=== PATIENT | male | born 1960 | race Caucasian/White ===

== ENCOUNTER 2024-02-17 13:37 | Inpatient (IN) | payer OTHER ==
[2024-02-17] MEDS: IPRATROPIUM 0.5 MG/2.5 ML NEBU INHALATION STA (13:53)
[2024-02-17] MEDS: ALBUTEROL NEBULIZED 2.5 MG/3 ML INHALATION STA (13:53)
[2024-02-17] MEDS: methylPREDNISolone SOD SUCCI 125 MG/2 ML VIAL IV STA (13:56)
[2024-02-17] MEDS: LORazepam 2 MG/ML INJ IV STA (13:59)
--- NOTE | 2024-02-17 14:04 | XR ---
EXAMINATION TYPE: XR chest 1V portable DATE OF EXAM: 02/17/2024 COMPARISON: None INDICATION: Difficulty breathing TECHNIQUE: Single frontal view of the chest is obtained. FINDINGS: The heart size is enlarged. The pulmonary vasculature is prominent. Diffuse increased central lung markings are present bilaterally. IMPRESSION: 1. Clinical correlation for congestive heart failure is recommended. [facility] [place], , 02/17/2024 2:01 PM
[2024-02-17 14:06] LABS: VBG PH 7.26 (7.31-7.41)
[2024-02-17 14:17] LABS: ALT 30 U/L (4-49); African American GFR (CKD) >90 (>60 ml/min/1.73 sqM); Albumin 3.5 g/dL (3.5-5.0); Anion Gap 12 mmol/L; Blood Urea Nitrogen 13 mg/dL (9-20); Calcium 8.9 mg/dL (8.4-10.2); Carbon Dioxide 20 mmol/L (22-30); Chloride 108 mmol/L (98-107); Glucose 182 mg/dL (74-99); Non-African American GFR(CKD) >90 (>60 ml/min/1.73 sqM); Sodium 140 mmol/L (137-145); Total Bilirubin 1.3 mg/dL (0.2-1.3); Total Protein 6.6 g/dL (6.3-8.2)
[2024-02-17 14:23] LABS: Basophils % (A) 0 %; Eosinophils # (A) 0.1 k/uL (0-0.7); Eosinophils % (A) 0 %; HCT 35.2 % (39.0-53.0); HGB 11.2 gm/dL (13.0-17.5); Hypochromasia Moderate; Lymphocytes % (A) 8 %; MCH 28.8 pg (25.0-35.0); MCHC 31.7 g/dL (31.0-37.0); MCV 90.8 fL (80.0-100.0); Mean Platelet Volume 8.9; Monocytes # (A) 0.4 k/uL (0-1.0); Monocytes % (A) 4 %; Neutrophils # (A) 10.6 k/uL (1.3-7.7); Neutrophils % (A) 87 %; Platelet Count 414 k/uL (150-450); Poikilocytosis Slight; RBC 3.88 m/uL (4.30-5.90); RDW 15.6 % (11.5-15.5); WBC 12.2 k/uL (3.8-10.6)
[2024-02-17 14:25] LABS: NT-Pro-B-Type Natriuretic Pept 12500 pg/mL
--- NOTE | 2024-02-17 14:25 | ED ---
General Adult HPI - General Chief complaint: Chest Pain Stated complaint: poss stemi Time Seen by Provider: 02/17/24 13:38 Source: patient, EMS, RN notes reviewed, old records reviewed Mode of arrival: EMS - History of Present Illness Initial comments: 3-year-old male presenting an extremis, pale, diaphoretic, hypoxic and tachycardic. History is limited due to the clinical presentation of this patient. There was concern for ST segment elevation in the prehospital EKG without reciprocal change. Patient admits to having bilateral chest pain worse with breathing over the past 4 days. No central chest pain. Patient requires 6 L by nasal cannula with persistent hypoxia. He is placed on BiPAP for respiratory support upon arrival. - Related Data Home Medications Medication Instructions Recorded Confirmed No Known Home Medications 02/17/24 02/17/24 Allergies Allergy/AdvReac Type Severity Reaction Status Date / Time No Known Allergies Allergy Verified 02/17/24 13:46 Review of Systems ROS Statement: Those systems with pertinent positive or pertinent negative responses have been documented in the HPI. ROS Other: All systems not noted in ROS Statement are negative. Past Medical History Additional Past Medical History / Comment(s): kidney stone History of Any Multi-Drug Resistant Organisms: None Reported Past Surgical History: Heart Catheterization With Stent Past Psychological History: No Psychological Hx Reported Smoking Status: Current every day smoker Past Alcohol Use History: None Reported Past Drug Use History: Marijuana General Exam General appearance: alert, in distress Head exam: Present: atraumatic, normocephalic Eye exam: Present: normal appearance, PERRL, other (pale Conjunctiva) Respiratory exam: Present: respiratory distress, wheezes, rales, accessory muscle use Cardiovascular Exam: Present: normal rhythm, tachycardia GI/Abdominal exam: Present: soft. Absent: distended, tenderness Extremities exam: Present: pedal edema, calf tenderness (rt side) Neurological exam: Present: alert Psychiatric exam: Present: anxious Skin exam: Present: diaphoretic, pallor Course Vital Signs 02/17/24 02/17/24 02/17/24 13:40 13:45 13:49 Temperature Pulse Rate 73 140 H Respiratory 42 H 42 H 42 H Rate Blood Pressure 143/109 O2 Sat by Pulse 93 L 100 Oximetry Fraction of Inspired Oxygen (FIO2) 02/17/24 02/17/24 02/17/24 13:56 13:57 14:01 Temperature Pulse Rate 124 H 118 H Respiratory 36 H Rate Blood Pressure 135/89 O2 Sat by Pulse 98 Oximetry Fraction of 60 Inspired Oxygen (FIO2) 02/17/24 02/17/24 02/17/24 14:27 14:58 15:31 Temperature 97.1 F L Pulse Rate 120 H Respiratory Rate Blood Pressure O2 Sat by Pulse Oximetry Fraction of 40 Inspired Oxygen (FIO2) Medical Decision Making - Medical Decision Making Was pt. sent in by a medical professional or institution (, PA, SECURITY ADVISOR, urgent care, hospital, or senior care...) When possible be specific @ -[No] Did you speak to anyone other than the patient for history (EMS, parent, family, police, friend...)? What history was obtained from this source @ -[No] Did you review nursing and triage notes (agree or disagree)? Why? @ -[I reviewed and agree with nursing and triage notes] Were old charts reviewed (outside hosp., previous admission, EMS record, old EKG, old radiological studies, urgent care reports/EKG's, senior care records)? Report findings @ -[No old charts were reviewed] Differential Dyspnea: Coronary syndrome, arrhythmia, tamponade, asthma, COPD, pulmonary embolism, pneumonia, pneumothorax, pulmonary effusion, anaphylaxis, diabetic ketoacidosis, flailed chest, pulmonary contusion, diaphragmatic rupture, anemia, neuromuscular, this is not meant to be an all-inclusive list. EKG interpreted by me (3pts min.). @ -Sinus tachycardia rate of 115, respiratory artifact significantly limiting assessment. There is ST segment elevation in the precordial leads without reciprocal change. EKG reviewed by Dr. Mendoza in the emergency department. EKG after the patient's respiratory status significantly improved at 1445, sinus tachycardia rate of 108, RI interval 169, QRS duration 106, QTc 437, ST segment elevation in V3 V4 and V5 no reciprocal change. X-rays interpreted by me (1pt min.). @Chest x-ray showed cardiomegaly and pulmonary edema consistent with CHF CT interpreted by me (1pt min.). @ -[None done] U/S interpreted by me (1pt. min.). @ -[None done] What testing was considered but not performed or refused? (CT, X-rays, U/S, labs)? Why? @ -[None] What meds were considered but not given or refused? Why? @ -[None] Did you discuss the management of the patient with other professionals (professionals i.e. Dr., PA, SECURITY ADVISOR, lab, RT, psych nurse, case management social worker, impregnator electrolytic capacitors, teacher, bank operations officer, case management social worker)? Give summary @ -[The patient discussed with Dr. Mendoza at multiple intervals. Case discussed with Dr. Sams who will admit. Was smoking cessation discussed for >3mins.? @ -[No] Was critical care preformed (if so, how long)? @ -Yes, 35 minutes Were there social determinants of health that impacted care today? How? (Homelessness, low income, unemployed, alcoholism, drug addiction, transportation, low edu. Level, literacy, decrease access to med. care, [facility], rehab)? @ -[No] Was there de-escalation of care discussed even if they declined (Discuss DNR or withdrawal of care, Hospice)? DNR status @ -[No] What co-morbidities impacted this encounter? (DM, HTN, Smoking, COPD, CAD, Cancer, CVA, ARF, Chemo, Hep., AIDS, mental health diagnosis, sleep apnea, morbid obesity)? @ -[Smoker, COPD, CAD Was patient admitted / discharged? Hospital course, mention meds given and route, prescriptions, significant lab abnormalities, going to OR and other pertinent info. @ -[63-year-old male presenting with chief complaint of difficulty breathing and bilateral chest pain over the past 3-4days at least. Patient is an extremis and therefore history is limited. He is pale, diaphoretic tachycardic and hypoxic with retractions and respiratory failure requiring BiPAP. He is placed on BiPAP, initial EKG is obtained which is poor quality but is concerning for ST segment elevation. His presentation is more consistent with CHF likely from AR within the past several days his EKG is reviewed by cardiology and felt to represent a completed AR the patient clinically improves dramatically in the emergency department. Respirations are improved. His oxygenation is maintained on BiPAP. He has no further chest pain. He is given Lasix, aspirin was given by paramedics prehospital. Echo was ordered he is placed on heparin with troponin of 10. His BNP is 12,000. His lactic is elevated and I suspect this is from hypoxia. Patient will be continued on aspirin, heparin, Lipitor, Lasix. He is admitted to internal medicine with cardiology on consult. [id number] male presenting with chief complaint of difficulty breathing and bilateral chest pain over the past 3-4days at least. Patient is an extremis and therefore history is limited. He is pale, diaphoretic tachycardic and hypoxic with retractions and respiratory failure requiring BiPAP. He is placed on BiPAP, initial EKG is obtained which is poor quality but is concerning for ST segment elevation. His presentation is more consistent with CHF likely from AR within the past several days his EKG is reviewed by cardiology and felt to represent a completed AR the patient clinically improves dramatically in the emergency department. Respirations are improved. His oxygenation is maintained on BiPAP. He has no further chest pain. He is given Lasix, aspirin was given by paramedics prehospital. Echo was ordered he is placed on heparin with troponin of 10. His BNP is 12,000. His lactic is elevated and I suspect this is from hypoxia. Patient will be continued on aspirin, heparin, Lipitor, Lasix. He is admitted to internal medicine with cardiology on consult. ACS resulting in CHF and respiratory failure. Undiagnosed new problem with uncertain prognosis? @ -[NoNoNoNoNoneNoneNone doneNone doneNo old charts were reviewedI reviewed and agree with nursing and triage notesNoNoACS resulting in CHF and respiratory failure. Undiagnosed new problem with uncertain prognosis? @ -[No] Drug Therapy requiring intensive monitoring for toxicity (Heparin, Nitro, Insulin, Cardizem)? @ -[No] Were any procedures done? @ -[No] Diagnosis/symptom? @ -[ACS, CHF, respiratory failure Acute, or Chronic, or Acute on Chronic? @ -acute Uncomplicated (without systemic symptoms) or Complicated (systemic symptoms)? @ -Complicated Side effects of treatment? @ -[No Exacerbation, Progression, or Severe Exacerbation? @ -[No] Poses a threat to life or bodily function? How? (Chest pain, USA, AR, pneumonia, PE, COPD, DKA, ARF, appy, cholecystitis, CVA, Diverticulitis, Homicidal, Suicidal, threat to staff... and all critical care pts) @Yes, ACS, congestive heart failure, respiratory failure - Lab Data Result diagrams: 02/17/24 13:53 02/17/24 13:53 Lab Results 0902/17/24 02/17/24 Range/Units 13:40 13:45 13:50 WBC (3.8-10.6) k/uL RBC (4.30-5.90) m/uL Hgb (13.0-17.5) gm/dL Hct (39.0-53.0) % MCV (80.0-100.0) fL MCH (25.0-35.0) pg MCHC (31.0-37.0) g/dL RDW (11.5-15.5) % Plt Count (150-450) k/uL MPV Neutrophils % % Lymphocytes % % Monocytes % % Eosinophils % % Basophils % % Neutrophils # (1.3-7.7) k/uL Lymphocytes # (1.0-4.8) k/uL Monocytes # (0-1.0) k/uL Eosinophils # (0-0.7) k/uL Basophils # (0-0.2) k/uL Hypochromasia Poikilocytosis PT (10.0-12.5) sec INR (<1.2) APTT (22.0-30.0) sec VBG pH (7.31-7.41) VBG pCO2 (37-51) mmHg VBG HCO3 (24-28) mmol/L Sodium (137-145) mmol/L Potassium (3.5-5.1) mmol/L Chloride (98-107) mmol/L Carbon Dioxide (22-30) mmol/L Anion Gap mmol/L BUN (9-20) mg/dL Creatinine (0.66-1.25) mg/dL Est GFR (CKD-EPI)AfAm (>60 ml/min/1.73 sqM) Est GFR (CKD-EPI)NonAf (>60 ml/min/1.73 sqM) Glucose (74-99) mg/dL Lactic Ac Sepsis Rflx Plasma Lactic Acid Lauro (0.7-2.0) mmol/L Calcium (8.4-10.2) mg/dL Magnesium (1.6-2.3) mg/dL Total Bilirubin (0.2-1.3) mg/dL AST (17-59) U/L ALT (4-49) U/L Alkaline Phosphatase (38-126) U/L Troponin I (0.000-0.034) ng/mL NT-Pro-B Natriuret Pep pg/mL Total Protein (6.3-8.2) g/dL Albumin (3.5-5.0) g/dL SARS-CoV-2 (PCR) (Not Detectd) Blood Type B Positive Blood Type Confirm B Positive Blood Type Recheck No Previous Record Bld Type Recheck Status CABO Indicated Antibody Screen NEGATIVE Spec Expiration Date 02/20/2024 - 233902/17/24 02/17/24 02/17/24 Range/Units 13:53 13:53 13:53 WBC 12.2 H (3.8-10.6) k/uL RBC 3.88 L (4.30-5.90) m/uL Hgb 11.2 L (13.0-17.5) gm/dL Hct 35.2 L (39.0-53.0) % MCV 90.8 (80.0-100.0) fL MCH 28.8 (25.0-35.0) pg MCHC 31.7 (31.0-37.0) g/dL RDW 15.6 H (11.5-15.5) % Plt Count 414 (150-450) k/uL MPV 8.9 Neutrophils % 87 % Lymphocytes % 8 % Monocytes % 4 % Eosinophils % 0 % Basophils % 0 % Neutrophils # 10.6 H (1.3-7.7) k/uL Lymphocytes # 1.0 (1.0-4.8) k/uL Monocytes # 0.4 (0-1.0) k/uL Eosinophils # 0.1 (0-0.7) k/uL Basophils # 0.0 (0-0.2) k/uL Hypochromasia Moderate Poikilocytosis Slight PT 13.0 H (10.0-12.5) sec INR 1.2 H (<1.2) APTT 20.3 L (22.0-30.0) sec VBG pH (7.31-7.41) VBG pCO2 (37-51) mmHg VBG HCO3 (24-28) mmol/L Sodium 140 (137-145) mmol/L Potassium 4.2 (3.5-5.1) mmol/L Chloride 108 H (98-107) mmol/L Carbon Dioxide 20 L (22-30) mmol/L Anion Gap 12 mmol/L BUN 13 (9-20) mg/dL Creatinine 0.80 (0.66-1.25) mg/dL Est GFR (CKD-EPI)AfAm >90 (>60 ml/min/1.73 sqM) Est GFR (CKD-EPI)NonAf >90 (>60 ml/min/1.73 sqM) Glucose 182 H (74-99) mg/dL Lactic Ac Sepsis Rflx Plasma Lactic Acid Lauro (0.7-2.0) mmol/L Calcium 8.9 (8.4-10.2) mg/dL Magnesium 1.9 (1.6-2.3) mg/dL Total Bilirubin 1.3 (0.2-1.3) mg/dL AST 116 H (17-59) U/L ALT 30 (4-49) U/L Alkaline Phosphatase 91 (38-126) U/L Troponin I (0.000-0.034) ng/mL NT-Pro-B Natriuret Pep 54680 pg/mL Total Protein 6.6 (6.3-8.2) g/dL Albumin 3.5 (3.5-5.0) g/dL SARS-CoV-2 (PCR) (Not Detectd) Blood Type Blood Type Confirm Blood Type Recheck Bld Type Recheck Status Antibody Screen Spec Expiration Date 02/17/24 02/17/24 02/17/24 Range/Units 13:53 13:53 13:53 WBC (3.8-10.6) k/uL RBC (4.30-5.90) m/uL Hgb (13.0-17.5) gm/dL Hct (39.0-53.0) % MCV (80.0-100.0) fL MCH (25.0-35.0) pg MCHC (31.0-37.0) g/dL RDW (11.5-15.5) % Plt Count (150-450) k/uL MPV Neutrophils % % Lymphocytes % % Monocytes % % Eosinophils % % Basophils % % Neutrophils # (1.3-7.7) k/uL Lymphocytes # (1.0-4.8) k/uL Monocytes # (0-1.0) k/uL Eosinophils # (0-0.7) k/uL Basophils # (0-0.2) k/uL Hypochromasia Poikilocytosis PT (10.0-12.5) sec INR (<1.2) APTT (22.0-30.0) sec VBG pH 7.26 L (7.31-7.41) VBG pCO2 49 (37-51) mmHg VBG HCO3 22 L (24-28) mmol/L Sodium (137-145) mmol/L Potassium (3.5-5.1) mmol/L Chloride (98-107) mmol/L Carbon Dioxide (22-30) mmol/L Anion Gap mmol/L BUN (9-20) mg/dL Creatinine (0.66-1.25) mg/dL Est GFR (CKD-EPI)AfAm (>60 ml/min/1.73 sqM) Est GFR (CKD-EPI)NonAf (>60 ml/min/1.73 sqM) Glucose (74-99) mg/dL Lactic Ac Sepsis Rflx Plasma Lactic Acid Lauro 4.2 H* (0.7-2.0) mmol/L Calcium (8.4-10.2) mg/dL Magnesium (1.6-2.3) mg/dL Total Bilirubin (0.2-1.3) mg/dL AST (17-59) U/L ALT (4-49) U/L Alkaline Phosphatase (38-126) U/L Troponin I 10.600 H* (0.000-0.034) ng/mL NT-Pro-B Natriuret Pep pg/mL Total Protein (6.3-8.2) g/dL Albumin (3.5-5.0) g/dL SARS-CoV-2 (PCR) (Not Detectd) Blood Type Blood Type Confirm Blood Type Recheck Bld Type Recheck Status Antibody Screen Spec Expiration Date 02/17/24 02/17/24 Range/Units 14:06 14:41 WBC (3.8-10.6) k/uL RBC (4.30-5.90) m/uL Hgb (13.0-17.5) gm/dL Hct (39.0-53.0) % MCV (80.0-100.0) fL MCH (25.0-35.0) pg MCHC (31.0-37.0) g/dL RDW (11.5-15.5) % Plt Count (150-450) k/uL MPV Neutrophils % % Lymphocytes % % Monocytes % % Eosinophils % % Basophils % % Neutrophils # (1.3-7.7) k/uL Lymphocytes # (1.0-4.8) k/uL Monocytes # (0-1.0) k/uL Eosinophils # (0-0.7) k/uL Basophils # (0-0.2) k/uL Hypochromasia Poikilocytosis PT (10.0-12.5) sec INR (<1.2) APTT (22.0-30.0) sec VBG pH (7.31-7.41) VBG pCO2 (37-51) mmHg VBG HCO3 (24-28) mmol/L Sodium (137-145) mmol/L Potassium (3.5-5.1) mmol/L Chloride (98-107) mmol/L Carbon Dioxide (22-30) mmol/L Anion Gap mmol/L BUN (9-20) mg/dL Creatinine (0.66-1.25) mg/dL Est GFR (CKD-EPI)AfAm (>60 ml/min/1.73 sqM) Est GFR (CKD-EPI)NonAf (>60 ml/min/1.73 sqM) Glucose (74-99) mg/dL Lactic Ac Sepsis Rflx Y Plasma Lactic Acid Lauro (0.7-2.0) mmol/L Calcium (8.4-10.2) mg/dL Magnesium (1.6-2.3) mg/dL Total Bilirubin (0.2-1.3) mg/dL AST (17-59) U/L ALT (4-49) U/L Alkaline Phosphatase (38-126) U/L Troponin I (0.000-0.034) ng/mL NT-Pro-B Natriuret Pep pg/mL Total Protein (6.3-8.2) g/dL Albumin (3.5-5.0) g/dL SARS-CoV-2 (PCR) Not Detected (Not Detectd) Blood Type Blood Type Confirm Blood Type Recheck Bld Type Recheck Status Antibody Screen Spec Expiration Date Critical Care Time Critical Care Time: Yes Total Critical Care Time: 35 Disposition Clinical Impression: Acute non-ST elevation myocardial infarction (NSTEMI), Failure respiratory, CHF (congestive heart failure) Disposition: ADMITTED IP TO THIS HOSP Condition: Serious Is patient prescribed a controlled substance at d/c from ED?: No Time of Disposition: 14:59
[2024-02-17 14:32] LABS: INR 1.2 (<1.2)
[2024-02-17 14:41] LABS: AST 116 U/L (17-59); Alkaline Phosphatase 91 U/L (38-126); Potassium 4.2 mmol/L (3.5-5.1)
[2024-02-17 14:42] LABS: Magnesium 1.9 mg/dL (1.6-2.3)
[2024-02-17] MEDS ORDERED: NITROGLYCERIN SL TABS 0.4 MG TAB SUBLINGUAL PRN (14:48)
[2024-02-17 14:55] LABS: Partial Thromboplastin Time 20.3 sec (22.0-30.0)
[2024-02-17] MEDS: FUROSEMIDE 10 MG/ML 4 ML VIAL IV STA (15:51)
[2024-02-17] MEDS: HEPARIN SODIUM 1,000 UN/ML (10ML VL) IV ONE (15:52)
[2024-02-17] MEDS: HEPARIN SOD,PORK IN 0.45% NACL 25,000 UNIT in 0.45% NACL 1 250ML.BAG IV SCH (15:56)
[2024-02-17] MEDS: ATORVASTATIN 80 MG TAB PO SCH (15:57)
[2024-02-17] MEDS: NITROGLYCERIN-D5W PMX 50 MG in DEXTROSE/WATER 1 250ML.BAG IV SCH (17:16)
--- NOTE | 2024-02-17 17:19 | P.HPIM ---
History of Present Illness H&P Date: 02/17/24 Patient is a 63-year-old male with hypertension and remote history of CAD status post stent in early came to ED with worsening exertional dyspnea that started 1 week ago. Patient states that he suddenly felt short of breath while carrying his laundry upstairs from the basement and he had to sit on the stairs for couple of minutes to catch his breath. He denies any associated chest pain or diaphoresis. Since then his shortness of breath has been getting worse. It is worse with physical activities such as walking or climbing stairs and better with rest. He also has been endorsing orthopnea and PND since 1 week. He felt his symptoms were worst today which prompted him to come to the ER. Patient never experienced these symptoms in the past although he states that he had chest pain in early and had a stent put in. Denies any recent hospitalization, upper respiratory tract infection, recent travel. Patient is not on any blood thinners. No history of blood clots. Denies any use of illicit drug except for occasional LSD and marijuana. He otherwise has no other ongoing medical condition. At the time of interview patient is feeling much better with BiPAP and pain medication. He continues to deny any active chest pain. Laboratory evaluation in the ER shows WBC 12.2, hemoglobin 11.2, hematocrit 35.2, platelet count 414, PT 13.0, INR 1.2, APTT 20.3, pH 7.26, pCO2 49, bicarb 20, sodium 140, potassium 4.2, chloride 108, BUN 30, creatinine 0.8, glucose 182, Lactic acid 4.2, troponin I 10.600, NT proBNP 74062 Vitals: Tmax 97.1, heart rate 120, respiration rate 36, blood pressure 135/89, oxygen saturation 98% on BiPAP with a setting of IPAP 14, EPAP 6, respirate 14, FiO2 50% Chest x-ray independently interpreted shows diffuse reticular markings bilaterally EKG independently interpreted shows sinus tachycardia with normal MT interval, normal QRS interval and normal QTc interval. ST elevation noted in V3 with T wave inversion in V4, V5 and V6 Review of systems: Pertinent positives and negatives as discussed in HPI, a complete review of systems was performed and all other systems are negative. 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 Family History: None Physical examination: Vital signs reviewed General: non toxic, mild distress, appears at stated age, overweight Derm: no unusual rashes/lesions, warm Head: atraumatic, normocephalic, symmetric Eyes: EOMI, no lid lag, anicteric sclera, pupils equal round reactive to light ENT: Nose and ears atraumatic Neck: No cervical lymphadenopathy, trachea midline, supple Mouth: no lip lesion, mucus membranes moist Cardiovascular: S1S2 reg, no murmur, positive dorsalis pedis pulse bilateral, 2+ pitting edema RLE and 1+ pitting edema LLE Lungs: Decreased breath sounds bilaterally, no rhonchi, no rales, no accessory muscle use Abdominal: soft, nontender to palpation, no guarding Ext: muscle strength 5 out of 5 in all 4 extremities grossly, no gross muscle at rophy, no contractures, Neuro: CN II-XI grossly intact, no gross focal neuro deficits Psych: Alert, oriented, appropriate affect Assessment/Plan: 63-year-old male with past medical history of CAD status post stent and hypertension came to the ER worth worsening exertional dyspnea likely has acute congestive heart failure exacerbation secondary to STEMI #Acute congestive heart failure exacerbation secondary to STEMI #Acute pulmonary edema #Remote history of CAD status post stent #Leukocytosis secondary to above #Elevated PT/INR secondary to above #Transaminitis secondary to above #Elevated lactic acid secondary to above #Anion gap metabolic acidosis secondary to lactic acidosis Chest x-ray shows diffuse reticular markings bilaterally EKG shows ST elevation noted in V3 with T wave inversion in V4, V5 and V6 Troponin I 10.6; continue to trend NT proBNP [id number] Anticoagulation with heparin drip IV Lasix 20 mg every 12 hour Atorvastatin 80 mg p.o. daily, aspirin 81 mg p.o. daily Strict I's and O's, daily weights, fluid restriction 1.5 L Lipid panel ordered N.p.o. diet Echocardiogram ordered, official report pending Extensive discussion with cardiology, patient likely had completed infarct, will likely need ischemic evaluation during this admission -Also found to have LV thrombus, pericardial effusion, and apical hypokinesis -Started on nitroglycerin drip, keep systolic blood pressure less than 110 Continue cardiac telemetry Continue BiPAP Continue monitor CBC and BMP #Hypertension Not on home medication DVT prophylaxis: Heparin drip The patient is admitted with an anticipated more than 2 midnight stay for evaluation of acute CHF likely STEMI CODE STATUS: Full code Discussed with: Patient Anticipated discharge place: Pending clinical course Anticipated discharge time: Pending clinical course A total of 65 minutes was spent on the care of this complex patient more than 50% of the time was spent in counseling and care coordination. I have seen and evaluated the patient today. Discussed with the resident and agree with the residents finding and plan as documented in the resident's note. Changes highlighted in blue font. Past Medical History Past Medical History: COPD Additional Past Medical History / Comment(s): kidney stone History of Any Multi-Drug Resistant Organisms: None Reported Past Surgical History: Heart Catheterization With Stent Past Psychological History: No Psychological Hx Reported Smoking Status: Current every day smoker Past Alcohol Use History: None Reported Past Drug Use History: Marijuana Medications and Allergies Home Medications Medication Instructions Recorded Confirmed Type No Known Home Medications 02/17/24 02/17/24 History Allergies Allergy/AdvReac Type Severity Reaction Status Date / Time No Known Allergies Allergy Verified 02/17/24 13:46 Physical Exam Vitals: Vital Signs Temp Pulse Resp BP Pulse Ox FiO2 02/17/24 15:31 40 02/17/24 14:58 97.1 F L 02/17/24 14:27 120 H 02/17/24 14:01 118 H 36 H 135/89 98 02/17/24 13:57 60 02/17/24 13:56 124 H 02/17/24 13:49 140 H 42 H 143/109 100 02/17/24 13:45 73 42 H 93 L 02/17/24 13:40 42 H Intake and Output 02/17/24 02/17/24 02/17/24 06:59 14:59 22:59 Other: Weight 81.647 kg Results CBC & Chem 7: 02/17/24 13:53 02/17/24 13:53 Labs: Abnormal Lab Results - Last 24 Hours (Table) 02/17/24 02/17/24 02/17/24 Range/Units 13:53 13:53 13:53 WBC 12.2 H (3.8-10.6) k/uL RBC 3.88 L (4.30-5.90) m/uL Hgb 11.2 L (13.0-17.5) gm/dL Hct 35.2 L (39.0-53.0) % RDW 15.6 H (11.5-15.5) % Neutrophils # 10.6 H (1.3-7.7) k/uL PT 13.0 H (10.0-12.5) sec INR 1.2 H (<1.2) APTT 20.3 L (22.0-30.0) sec VBG pH (7.31-7.41) VBG HCO3 (24-28) mmol/L Chloride 108 H (98-107) mmol/L Carbon Dioxide 20 L (22-30) mmol/L Glucose 182 H (74-99) mg/dL Plasma Lactic Acid Lauro (0.7-2.0) mmol/L AST 116 H (17-59) U/L Troponin I (0.000-0.034) ng/mL 02/17/24 02/17/24 02/17/24 Range/Units 13:53 13:53 13:53 WBC (3.8-10.6) k/uL RBC (4.30-5.90) m/uL Hgb (13.0-17.5) gm/dL Hct (39.0-53.0) % RDW (11.5-15.5) % Neutrophils # (1.3-7.7) k/uL PT (10.0-12.5) sec INR (<1.2) APTT (22.0-30.0) sec VBG pH 7.26 L (7.31-7.41) VBG HCO3 22 L (24-28) mmol/L Chloride (98-107) mmol/L Carbon Dioxide (22-30) mmol/L Glucose (74-99) mg/dL Plasma Lactic Acid Lauro 4.2 H* (0.7-2.0) mmol/L AST (17-59) U/L Troponin I 10.600 H* (0.000-0.034) ng/mL
[2024-02-17 20:00] LABS: Glucose,Whole Blood 171 mg/dL (70-110)
[2024-02-17] MEDS ORDERED: METOPROLOL TARTRATE 25 MG TAB PO SCH (21:00)
[2024-02-17] MEDS: FUROSEMIDE 10 MG/ML 2 ML VIAL IV SCH (21:54)
[2024-02-17] MEDS: HEPARIN SODIUM 1,000 UN/ML (10ML VL) IV PRN (22:17)
--- NOTE | 2024-02-18 01:54 | P.CNPUL ---
History of Present Illness Consult date: 02/18/24 Requesting physician: Moise Sams Reason for consult: other (ICU management) Chief complaint: Acute shortness of breath, nausea, diaphoresis History of present illness: Patient is a 63-year-old white male with past medical history significant for coronary artery disease with previous PCI/stent. Patient does not have a current primary care provider. He smokes approximately 1 pack/day, and has over [id number] history. Patient presented the emergency department yesterday with 24 hours of relatively acute onset shortness of breath associated with nausea and diaphoresis. This occurred while sitting down and watching TV. He does admit to feeling generally unwell and fatigued, over the last week or so. He denies any actual chest pain. He was placed on BiPAP in the emergency depa rtment. EKG done on arrival showed some questionable ST segment elevation in the anterior leads. His troponins are elevated at 40, 58 respectively. An echocardiogram was performed in the emergency department, we are awaiting official results. Patient reportedly had a left ventricle thrombus. Patient currently on a heparin drip per protocol. Also, receiving nitroglycerin infusion at 25 mcg/min. Chest x-ray consistent with pulmonary edema. patient was placed on BiPAP in the emergency department, which she continues on with settings 14/6 and FiO2 of 40%. He is still tachypneic. Respiratory rate is in the mid 30s. Tidal volume 450-500. He is receiving Lasix 20 mg twice daily. CBC: WBC count 12.2, hemoglobin 11.2, hematocrit 35.2, platelets 414. CMP: Sodium 140, potassium 4.2, chloride 108, serum bicarb 20, BUN 13, creatinine 0.8, glucose 182. Lactic mildly elevated at 4.2 and down to 2. LFTs unremarkable. NT proBNP significantly elevated at 12,500. COVID-negative. Patient denies any infectious-like symptoms. I am evaluating this patient in the intensive care unit, room 257. He remains on BiPAP he is slightly tachypneic, but fairly comfortable considering. He is able to speak in full sentences and answer most of my questions. No accessory muscle use. SpO2 is reading 97%. He is only voided 1 time since Lasix. Remains tachycardic with a current rate of 112 bpm. Blood pressure 101/82 mmHg. Not currently requiring any vasopressor support. We are awaiting further recommendations from cardiology. Review of Systems Constitutional: Reports fatigue, Denies chills, Denies fever, Denies weight gain, Denies weight loss Ears, nose, mouth and throat: Denies headache, Denies nasal congestion, Denies nasal discharge, Denies post-nasal drip, Denies sinus pressure, Denies sore throat Cardiovascular: Reports decreased exercise tolerance, Reports leg edema, Reports orthopnea, Denies chest pain, Denies palpitations, Denies paroxysmal nocturnal dyspnea, Denies syncope Respiratory: Reports dyspnea, Denies cough with sputum, Denies home oxygen, Denies wheezing Gastrointestinal: Denies abdominal pain, Denies diarrhea, Denies nausea, Denies vomiting Genitourinary: Denies dysuria Musculoskeletal: Denies arm numbness/tingling, Denies leg numbness/tingling, Denies limitation of motion, Denies muscle weakness Integumentary: Denies rash Neurological: Denies confusion, Denies seizures, Denies syncope, Denies visual changes Psychiatric: Denies anxiety, Denies depression Past Medical History Past Medical History: COPD Additional Past Medical History / Comment(s): kidney stone History of Any Multi-Drug Resistant Organisms: None Reported Past Surgical History: Heart Catheterization With Stent Past Anesthesia/Blood Transfusion Reactions: No Reported Reaction Date of Last Stent Placement:: 1989 Past Psychological History: No Psychological Hx Reported Smoking Status: Current every day smoker Past Alcohol Use History: None Reported Past Drug Use History: Marijuana - Past Family History Mother Additional Family Medical History / Comment(s): heart issues- Father Additional Family Medical History / Comment(s): of pancreatitis-alcoholic Medications and Allergies Home Medications Medication Instructions Recorded Confirmed Type No Known Home Medications 02/17/24 02/17/24 History Allergies Allergy/AdvReac Type Severity Reaction Status Date / Time No Known Allergies Allergy Verified 02/17/24 13:46 Physical Exam Vitals: Vital Signs Temp Pulse Pulse Resp BP BP Pulse Ox 02/17/24 23:00 112 H 32 H 101/82 97 02/17/24 22:30 116 H 18 119/83 91 L 02/17/24 22:00 112 H 29 H 124/91 92 L 02/17/24 21:30 110 H 20 138/80 86 L 02/17/24 21:00 106 H 15 120/90 97 02/17/24 20:30 105 H 33 H 119/98 98 02/17/24 20:00 106 H 23 108/86 02/17/24 19:57 106 H 37 H 02/17/24 19:38 97.6 F 55 L 36 H 122/81 96 02/17/24 18:52 97.6 F 107 H 32 H 123/75 97 02/17/24 18:30 102 H 25 H 135/79 98 02/17/24 18:00 106 H 29 H 120/87 98 02/17/24 17:30 103 H 30 H 126/88 98 02/17/24 17:00 105 H 34 H 112/90 98 02/17/24 16:30 104 H 34 H 130/92 98 02/17/24 16:00 110 H 37 H 122/90 99 02/17/24 15:31 02/17/24 15:30 101 H 24 127/88 97 02/17/24 15:00 112 H 40 H 129/88 98 02/17/24 14:58 97.1 F L 02/17/24 14:27 120 H 02/17/24 14:07 117 H 38 H 135/89 99 02/17/24 14:01 118 H 36 H 135/89 98 02/17/24 13:57 02/17/24 13:56 124 H 02/17/24 13:49 140 H 42 H 143/109 100 02/17/24 13:45 73 42 H 93 L 02/17/24 13:40 42 H FiO2 02/17/24 23:00 02/17/24 22:30 02/17/24 22:00 02/17/24 21:30 02/17/24 21:00 02/17/24 20:30 02/17/24 20:00 40 02/17/24 19:57 02/17/24 19:38 40 02/17/24 18:52 40 02/17/24 18:30 02/17/24 18:00 02/17/24 17:30 02/17/24 17:00 02/17/24 16:30 02/17/24 16:00 02/17/24 15:31 40 02/17/24 15:30 02/17/24 15:00 02/17/24 14:58 02/17/24 14:27 02/17/24 14:07 02/17/24 14:01 02/17/24 13:57 60 02/17/24 13:56 02/17/24 13:49 02/17/24 13:45 02/17/24 13:40 Intake and Output 02/17/24 02/17/24 02/18/24 14:59 22:59 06:59 Intake Total 69.836 4.35 Output Total 200 Balance -130.164 4.35 Intake: Intake, IV Titration 69.836 4.35 Amount Heparin Sod,Pork in 0.45% 60.911 NaCl 25,000 unit In 0.45 % NaCl 1 250ml.bag @ 12 UNITS/KG/HR 9.798 mls/hr IV .Q24H [facility] Rx#: [id number] Nitroglycerin-D5w Pmx 50 8.925 4.35 mg In Dextrose/Water 1 250ml.bag @ 5 MCG/MIN 1.5 mls/hr IV .Q24H [facility] Rx#: [id number] Output: Urine 200 Other: # Voids 0 Weight 81.647 kg 74.5 kg GENERAL EXAM: Alert, 63-year-old white male, in some mild respiratory distress on BiPAP with settings 14/6 and FiO2 of 40%. HEAD: Normocephalic and atraumatic EYES: Normal reaction of pupils, equal size. NOSE: Clear with pink turbinates. THROAT: No erythema or exudates. NECK: No masses, no JVD. CHEST: No chest wall deformity. LUNGS: Equal air entry with bibasilar crackles. No wheezes, rhonchi, focal diminished lung sounds. On BiPAP. Tachypneic. No conversational dyspnea or accessory muscle use.. CVS: S1 and S2 normal with no audible murmur, regular rhythm. No extra heart sounds ABDOMEN: No hepatosplenomegaly, active bowel sounds, no guarding or rigidity. SPINE: No scoliosis or deformity SKIN: No rashes CENTRAL NERVOUS SYSTEM: No focal deficits, tone is normal in all 4 extremities. EXTREMITIES: There is mild nonpitting lower extremity edema bilaterally. No clubbing, or cyanosis. Peripheral pulses are intact. Results - Laboratory Findings CBC and BMP: 02/17/24 13:53 02/17/24 13:53 PT/INR, D-dimer PT 13.0 sec (10.0-12.5) H 02/17/24 13:53 INR 1.2 (<1.2) H 02/17/24 13:53 Abnormal lab findings: Abnormal Labs 02/17/24 02/17/24 02/17/24 13:53 13:53 13:53 WBC 12.2 H RBC 3.88 L Hgb 11.2 L Hct 35.2 L RDW 15.6 H Neutrophils # 10.6 H PT 13.0 H INR 1.2 H APTT 20.3 L VBG pH VBG HCO3 Chloride 108 H Carbon Dioxide 20 L Glucose 182 H POC Glucose (mg/dL) Plasma Lactic Acid Lauro AST 116 H Troponin I 02/17/24 02/17/24 02/17/24 13:53 13:53 13:53 WBC RBC Hgb Hct RDW Neutrophils # PT INR APTT VBG pH 7.26 L VBG HCO3 22 L Chloride Carbon Dioxide Glucose POC Glucose (mg/dL) Plasma Lactic Acid Lauro 4.2 H* AST Troponin I 10.600 H* 02/17/24 02/17/24 02/17/24 17:12 17:12 19:58 WBC RBC Hgb Hct RDW Neutrophils # PT INR APTT VBG pH VBG HCO3 Chloride Carbon Dioxide Glucose POC Glucose (mg/dL) 171 H Plasma Lactic Acid Lauro 3.0 H* AST Troponin I 40.000 H* 02/17/24 02/17/24 20:46 20:46 WBC RBC Hgb Hct RDW Neutrophils # PT INR APTT 30.8 H VBG pH VBG HCO3 Chloride Carbon Dioxide Glucose POC Glucose (mg/dL) Plasma Lactic Acid Lauro AST Troponin I 58.000 H* - Diagnostic Findings Chest x-ray: image reviewed Assessment and Plan Assessment: Acute coronary syndrome, currently admitted to the intensive care unit on a heparin and nitroglycerin infusion per protocol. We are awaiting further recommendations from cardiology. Reported LV thrombus, awaiting official report from echo Acute pulmonary edema Acute hypoxemic respiratory failure, secondary to above, currently on BiPAP Acute dyspnea Lactic acidosis, improved History of coronary artery disease with previous PCI/stent at outside facility Chronic ongoing tobacco dependence, current 1 pack/day smoker with over [id number] history Plan: Patient's medications, labs, chest x-ray reviewed Patient continues on heparin infusion per protocol and nitroglycerin infusion. Continue on BiPAP with current settings Continue with IV diuretics Awaiting official report from echocardiogram Awaiting further recommendations from cardiology GI prophylaxis: Protonix DVT prophylaxis: Deferred as patient is on heparin infusion Patient counseled on smoking cessation greater than 10 minutes Patient will be monitored in the intensive care unit, further recommendations to follow. I have personally seen and examined the patient, performed the documentation and the assessment and plan as written. Number of minutes spent on the visit:20 Time with Patient: Greater than 30
[2024-02-18 02:33] LABS: INR 1.3 (<1.2); Prothrombin Time 13.6 sec (10.0-12.5)
--- NOTE | 2024-02-18 07:40 | XR ---
EXAMINATION TYPE: XR chest 1V DATE OF EXAM: 02/18/2024 COMPARISON: 02/17/2024 INDICATION: Pulmonary edema TECHNIQUE: Single frontal view of the chest is obtained. FINDINGS: The heart size is enlarged. The pulmonary vasculature is prominent. Increased Central lung markings are present especially through the right hilar region. Findings could be compatible with congestive heart failure and pulmonary edema IMPRESSION: 1. Clinical correlation recommended for congestive heart failure and pulmonary edema. [facility], , 02/18/2024 7:38 AM
[2024-02-18 07:55] LABS: Basophils % (A) 0 %; Eosinophils % (A) 0 %; HCT 29.2 % (39.0-53.0); Hypochromasia Marked; Lymphocytes # (A) 1.1 k/uL (1.0-4.8); Lymphocytes % (A) 8 %; MCH 28.5 pg (25.0-35.0); MCV 89.2 fL (80.0-100.0); Mean Platelet Volume 7.9; Monocytes # (A) 0.7 k/uL (0-1.0); Monocytes % (A) 6 %; Neutrophils # (A) 11.4 k/uL (1.3-7.7); Neutrophils % (A) 86 %; Platelet Count 441 k/uL (150-450); RBC 3.27 m/uL (4.30-5.90); RDW 15.6 % (11.5-15.5); WBC 13.4 k/uL (3.8-10.6)
[2024-02-18 08:10] LABS: African American GFR (CKD) >90 (>60 ml/min/1.73 sqM); Anion Gap 6 mmol/L; Blood Urea Nitrogen 23 mg/dL (9-20); Calcium 8.6 mg/dL (8.4-10.2); Carbon Dioxide 26 mmol/L (22-30); Chloride 108 mmol/L (98-107); Glucose 147 mg/dL (74-99); Non-African American GFR(CKD) 86 (>60 ml/min/1.73 sqM); Sodium 140 mmol/L (137-145)
[2024-02-18 08:20] LABS: HGB 9.3 gm/dL (13.0-17.5)
[2024-02-18] MEDS ORDERED: ASPIRIN 325 MG TAB PO SCH (09:00)
[2024-02-18] MEDS: PANTOPRAZOLE 40 MG/10 ML VIAL IVP SCH (09:04)
[2024-02-18] MEDS: ASPIRIN 81 MG PO SCH (09:04)
--- NOTE | 2024-02-18 10:12 | CA ---
Transthoracic Echo Report Name: Sylvester Keen Age: 63 Gender: M : 1960 Exam Date: 02/17/2024 15:54 Exam Location: [facility] Ht (in): 67 Wt (lb): 180 Ordering Physician: Rashid Murcia MD Attending/Referring Phys: [id number], Divina Arc Cutter Plasma Arc Kandice Burden RDCS Procedure CPT: Indications: nstemi Cardiac Hx: Technical Quality: Fair Contrast 1: Total Dose (mL): Contrast 2: Total Dose (mL): MEASUREMENTS (Male / Female) Normal Values 2D ECHO LV Diastolic Diameter PLAX 4.4 cm 4.2 - 5.9 / 3.9 - 5.3 cm LV Systolic Diameter PLAX 3.4 cm IVS Diastolic Thickness 1.1 cm 0.6 - 1.0 / 0.6 - 0.9 cm LVPW Diastolic Thickness 1.1 cm 0.6 - 1.0 / 0.6 - 0.9 cm LV Relative Wall Thickness 0.5 RV Internal Dim ED PLAX 4.0 cm LV Diastolic Volume MOD BP 142.1 cm??? 67 - 155 / 56 - 104 cm??? LV Systolic Volume MOD BP 96.1 cm??? 22 - 58 / 19 - 49 cm??? LV Ejection Fraction MOD BP 32.4 % >= 55 % LV Diastolic Volume MOD 4C 101.2 cm??? LV Systolic Volume MOD 4C 57.6 cm??? LV Ejection Fraction MOD 4C 43.1 % LV Diastolic Length 4C 8.5 cm LV Systolic Length 4C 7.8 cm LV Diastolic Volume MOD 2C 182.5 cm??? LV Systolic Volume MOD 2C 128.6 cm??? LV Ejection Fraction MOD 2C 29.6 % LV Diastolic Length 2C 9.3 cm LV Systolic Length 2C 9.9 cm LA Volume 96.4 cm??? 18 - 58 / 22 - 52 cm??? LA Volume Index 48.6 cm???/m??? 16 - 28 cm???/m??? M-MODE Aortic Root Diameter MM 3.3 cm LA Systolic Diameter MM 4.9 cm LA Ao Ratio MM 1.5 AV Cusp Separation MM 2.5 cm DOPPLER AV Peak Velocity 102.0 cm/s AV Peak Gradient 4.2 mmHg AV Mean Velocity 79.0 cm/s AV Mean Gradient 2.6 mmHg AV Velocity Time Integral 15.0 cm MV E' Velocity 4.8 cm/s TR Peak Velocity 335.1 cm/s TR Peak Gradient 44.9 mmHg Right Atrial Pressure 20.0 mmHg Pulmonary Artery Systolic Pressu 64.9 mmHg Right Ventricular Systolic Press 64.9 mmHg FINDINGS Left Ventricle Mildly increased septal wall thickness. Severely increased left ventricular systolic volume. Moderately decreased left ventricular ejection fraction. Olivia hypokinetic. Hypokinetic septum. Hypokinetic posterior wall. Hypokinetic lateral wall. Hypokinetic anterior wall. Large left ventricular apical thrombus. Left ventricular ejection fraction is estimated at 25-30 %. Right Ventricle Right ventricular dilatation. Severe pulmonary hypertension. Right ventricular systolic pressure estimated at 65 mm hg. Right Atrium Normal right atrial size. Left Atrium Severely increased left atrial volume. Mildly increased left atrial area. Mitral Valve Structurally normal mitral valve. Moderate mitral regurgitation. Aortic Valve Trileaflet aortic valve. No aortic stenosis. Trace to mild aortic regurgitation. Tricuspid Valve Structurally normal tricuspid valve. Moderate tricuspid regurgitation. Pulmonic Valve Structurally normal pulmonic valve. Trace pulmonic regurgitation. Pericardium Moderate pericardial effusion. Pleural effusion. Echocardiographic findings suggest a mildly hemodynamically significant pericardial effusion. Aorta Normal size aortic root and proximal ascending aorta. CONCLUSIONS Diagnosis acute myocardial infarction Severe LV dysfunction with a dyskinetic large anterior apical segment that extends into the distal half of the inferior wall Large apical thrombus layering the dyskinetic apical segment Severe RV enlargement with elevated RVSP Moderate pericardial effusion with exudative material consistent with chronicity of the effusion Large pleural effusion is obvious More than 30-40% variation in the tricuspid inflow peak velocities with respiration Previewed by: Dr. Vasu Kahn MD (Electronically Signed) Final Date: 18 February 2024 10:09
--- NOTE | 2024-02-18 12:17 | P.PN ---
Subjective Progress Note Date: 02/18/24 Subjective: Patient is a 63-year-old male with hypertension and remote history of CAD status post stent in early came to ED with worsening exertional dyspnea that started 1 week ago. Patient states that he suddenly felt short of breath a week ago while carrying his laundry upstairs from the basement and he had to sit on the stairs for couple of minutes to catch his breath. He denies any associated chest pain or diaphoresis. Since then his shortness of breath has been getting worse. It is worse with physical activities such as walking or climbing stairs and better with rest. He also has been endorsing orthopnea and PND since 1 week. He felt his symptoms were worst today which prompted him to come to the ER. Patient never experienced these symptoms in the past although he states that he had chest pain in early and had a stent put in. Denies any recent hospitalization, upper respiratory tract infection, recent travel. Patient is not on any blood thinners. No history of blood clots. Denies any use of illicit drug except for occasional LSD and marijuana. He otherwise has no other ongoing medical condition. At the time of interview patient is feeling better with BiPAP and pain medication. He continues to deny any active chest pain. Laboratory evaluation in the ER shows WBC 12.2, hemoglobin 11.2, hematocrit 35.2, platelet count 414, PT 13.0, INR 1.2, APTT 20.3, pH 7.26, pCO2 49, bicarb 20, sodium 140, potassium 4.2, chloride 108, BUN 30, creatinine 0.8, glucose 182, Lactic acid 4.2, troponin I 10.600, NT proBNP [id number]: Tmax 97.1, heart rate 120, respiration rate 36, blood pressure 135/89, oxygen saturation 98% on BiPAP with a setting of IPAP 14, EPAP 6, respirate 14, FiO2 50%. Chest x-ray independently interpreted shows diffuse reticular markings bilaterally. EKG independently interpreted shows sinus tachycardia with normal NC interval, normal QRS interval and normal QTc interval. ST elevation noted in V3 with T wave inversion in V4, V5 and V6. Patient is admitted for acute CHF secondary to ACS with elevated troponin levels. Cardiology is consulted. Pulmonology consulted. Patient is transferred to ICU for close monitoring. Patient is currently on nitroglycerin drip and BiPAP. All Systems reviewed and pertinent positives and negatives noted in HPI, all other symptoms are negative Objective: Patient seen and examined at the bedside. No acute events overnight. No chest pain or Shortness of breath. Currently off BiPAP Vital signs reviewed. Data reviewed today: Labs: Troponin uptrending from 10.6, 40.0, 58.0 WBC 13.4, RBC 3.27, hemoglobin 9.3, MCV 89.2 platelet count 441, PTT 50.3, sodium 140, potassium 4.0, chloride 108, bicarb 26, BUN 24, creatinine 0.96, glucose 147, calcium 8.6, magnesium 2.0 Chest x-ray shows diffuse bilateral reticulo-nodular markings EKG shows q waves with evolving ST waves in the anteroseptal leads Physical examination: Vital signs reviewed General: non toxic, mild distress, appears at stated age, overweight Derm: no unusual rashes/lesions, warm Head: atraumatic, normocephalic, symmetric Eyes: EOMI, no lid lag, anicteric sclera, pupils equal round reactive to light ENT: Nose and ears atraumatic Neck: No cervical lymphadenopathy, trachea midline, supple Mouth: no lip lesion, mucus membranes moist Cardiovascular: S1S2 reg, no murmur, positive dorsalis pedis pulse bilateral, 1+ pitting edema RLE and 1+ pitting edema LLE Lungs: Decreased breath sounds bilaterally, no rhonchi, no rales, no accessory muscle use Abdominal: soft, nontender to palpation, no guarding Ext: muscle strength 5 out of 5 in all 4 extremities grossly, no gross muscle atrophy, no contractures, Neuro: CN II-XI grossly intact, no gross focal neuro deficits Psych: Alert, oriented, appropriate affect Assessment/Plan: 63-year-old male with past medical history of CAD status post stent and hypertension came to the ER with worsening exertional dyspnea likely has acute congestive heart failure exacerbation secondary to STEMI #Acute systolic congestive heart failure exacerbation secondary to STEMI #Remote history of CAD status post stent #Congestive Hepatopathy #Pericardial Effusion Chest x-ray shows diffuse reticulo-nodular markings bilaterally EKG in ED shows ST elevation noted in V3 with T wave inversion in V4, V5 and V6 Troponin I continue to trend upward from 10.6 --> 40--> 58; repeat Trop NT proBNP 21098 Anticoagulation with heparin drip IV Lasix increased to 40 mg every 12 hour Atorvastatin 80 mg p.o. daily, aspirin 81 mg p.o. daily Strict I's and O's, daily weights, fluid restriction 1.5 L Lipid panel ordered N.p.o. diet Echocardiogram shows left ventricular ejection fraction 25 to 30%. Large left ventricular apical thrombus, apical/lateral wall/posterior wall hypokinesis Extensive discussion with cardiology, patient likely had completed infarct, will likely need ischemic evaluation during this admission Cardiac catheterization tomorrow morning c/w nitroglycerin drip, keep systolic blood pressure less than 120 Continue cardiac telemetry Continue monitor CBC and BMP Pulmonology consulted Start guideline directed medical therapy for CHF: on entresto 24/26 mg half tablet p.o. twice daily #Hypertension Not on home medication #Normocytic anemia Hemoglobin 9.2, MCV 90.8 Patient denies active bleeding Continue to monitor CBC Transfusion with PRBC if hemoglobin less than 7 Iron studies ordered TSH HbAIC Resolved: #Elevated lactic acid secondary to above, resolved #Anion gap metabolic acidosis secondary to lactic acidosis, resolved F: None E: Replete as needed N: N.p.o. A: ICU DVT ppx: Heparin drip Code Status: Full code Anticipated discharge place: Pending clinical course Anticipated discharge date: Pending clinical course I saw and evaluated the patient during the yanes and critical portions of this encounter, and discussed the case in detail with the resident author of this note, I agree with the Assessment and Plan, and my changes, if any, are highlighted in blue. Objective - Vital Signs Vital signs: Vital Signs Temp 97.9 F 02/18/24 04:00 Pulse 105 H 02/18/24 07:00 Resp 22 02/18/24 07:00 BP 115/86 02/18/24 07:00 Pulse Ox 98 02/18/24 07:00 FiO2 40 02/18/24 04:00 Intake & Output 02/17/24 02/18/24 02/18/24 18:59 06:59 18:59 Intake Total 231.808 3 Output Total 350 Balance -118.192 3 Weight 74.5 kg 72.4 kg Intake: Intake, IV Titration 231.808 3 Amount Heparin Sod,Pork in 0.45% 123.983 NaCl 25,000 unit In 0.45 % NaCl 1 250ml.bag @ 12 UNITS/KG/HR 9.798 mls/hr IV .Q24H [facility] Rx#: [id number] Nitroglycerin-D5w Pmx 50 107.825 3 mg In Dextrose/Water 1 250ml.bag @ 5 MCG/MIN 1.5 mls/hr IV .Q24H [facility] Rx#: [id number] Output: Urine 350 Other: # Voids 0 0 - Labs CBC & Chem 7: 02/18/24 07:33 02/18/24 07:33 Labs: Abnormal Lab Results - Last 24 Hours (Table) 02/17/24 02/17/24 02/17/24 Range/Units 13:53 13:53 13:53 WBC 12.2 H (3.8-10.6) k/uL RBC 3.88 L (4.30-5.90) m/uL Hgb 11.2 L (13.0-17.5) gm/dL Hct 35.2 L (39.0-53.0) % RDW 15.6 H (11.5-15.5) % Neutrophils # 10.6 H (1.3-7.7) k/uL PT 13.0 H (10.0-12.5) sec INR 1.2 H (<1.2) APTT 20.3 L (22.0-30.0) sec VBG pH (7.31-7.41) VBG HCO3 (24-28) mmol/L Chloride 108 H (98-107) mmol/L Carbon Dioxide 20 L (22-30) mmol/L Glucose 182 H (74-99) mg/dL POC Glucose (mg/dL) (70-110) mg/dL Plasma Lactic Acid Lauro (0.7-2.0) mmol/L AST 116 H (17-59) U/L Troponin I (0.000-0.034) ng/mL 02/17/24 02/17/24 02/17/24 Range/Units 13:53 13:53 13:53 WBC (3.8-10.6) k/uL RBC (4.30-5.90) m/uL Hgb (13.0-17.5) gm/dL Hct (39.0-53.0) % RDW (11.5-15.5) % Neutrophils # (1.3-7.7) k/uL PT (10.0-12.5) sec INR (<1.2) APTT (22.0-30.0) sec VBG pH 7.26 L (7.31-7.41) VBG HCO3 22 L (24-28) mmol/L Chloride (98-107) mmol/L Carbon Dioxide (22-30) mmol/L Glucose (74-99) mg/dL POC Glucose (mg/dL) (70-110) mg/dL Plasma Lactic Acid Lauro 4.2 H* (0.7-2.0) mmol/L AST (17-59) U/L Troponin I 10.600 H* (0.000-0.034) ng/mL 02/17/24 02/17/24 02/17/24 Range/Units 17:12 17:12 19:58 WBC (3.8-10.6) k/uL RBC (4.30-5.90) m/uL Hgb (13.0-17.5) gm/dL Hct (39.0-53.0) % RDW (11.5-15.5) % Neutrophils # (1.3-7.7) k/uL PT (10.0-12.5) sec INR (<1.2) APTT (22.0-30.0) sec VBG pH (7.31-7.41) VBG HCO3 (24-28) mmol/L Chloride (98-107) mmol/L Carbon Dioxide (22-30) mmol/L Glucose (74-99) mg/dL POC Glucose (mg/dL) 171 H (70-110) mg/dL Plasma Lactic Acid Lauro 3.0 H* (0.7-2.0) mmol/L AST (17-59) U/L Troponin I 40.000 H* (0.000-0.034) ng/mL 02/17/24 02/17/24 02/18/24 Range/Units 20:46 20:46 02:09 WBC (3.8-10.6) k/uL RBC (4.30-5.90) m/uL Hgb (13.0-17.5) gm/dL Hct (39.0-53.0) % RDW (11.5-15.5) % Neutrophils # (1.3-7.7) k/uL PT 13.6 H (10.0-12.5) sec INR 1.3 H (<1.2) APTT 30.8 H (22.0-30.0) sec VBG pH (7.31-7.41) VBG HCO3 (24-28) mmol/L Chloride (98-107) mmol/L Carbon Dioxide (22-30) mmol/L Glucose (74-99) mg/dL POC Glucose (mg/dL) (70-110) mg/dL Plasma Lactic Acid Lauro (0.7-2.0) mmol/L AST (17-59) U/L Troponin I 58.000 H* (0.000-0.034) ng/mL 02/18/24 Range/Units 02:09 WBC (3.8-10.6) k/uL RBC (4.30-5.90) m/uL Hgb (13.0-17.5) gm/dL Hct (39.0-53.0) % RDW (11.5-15.5) % Neutrophils # (1.3-7.7) k/uL PT (10.0-12.5) sec INR (<1.2) APTT 33.6 H (22.0-30.0) sec VBG pH (7.31-7.41) VBG HCO3 (24-28) mmol/L Chloride (98-107) mmol/L Carbon Dioxide (22-30) mmol/L Glucose (74-99) mg/dL POC Glucose (mg/dL) (70-110) mg/dL Plasma Lactic Acid Lauro (0.7-2.0) mmol/L AST (17-59) U/L Troponin I (0.000-0.034) ng/mL
[2024-02-18] MEDS ORDERED: ALPRAZolam 0.25 MG TAB PO PRN (14:00)
[2024-02-18] MEDS ORDERED: LOSARTAN 25 MG TAB PO SCH (14:00)
[2024-02-18] MEDS: SACUBITRIL/VALSARTAN 24 MG-26 MG TABLET PO SCH (14:47)
[2024-02-18] MEDS: FUROSEMIDE 10 MG/ML 4 ML VIAL IV SCH (14:49)
[2024-02-18 15:09] LABS: Chol/HDL Ratio 5.44 Ratio; LDL Cholesterol,Calculated 124.3 mg/dL (0.0-131.0)
--- NOTE | 2024-02-18 17:18 | P.CRDCN ---
History of Present Illness Consult date: 02/18/24 History of present illness: HISTORY OF PRESENTING ILLNESS 63-year-old male who is not able to provide me any past medical history as he has not seen any physician in recent past. He smokes 1 pack/day for last 30 years. He presents the hospital because of increased shortness of breath, nausea along with diaphoresis that started 24 hours ago. This happened while patient was sitting in a chair watching TV. Patient is not a good historian. Further history was obtained from patient's over the phone. Patient's reports that 5 weeks ago patient started h aving increased fatigue and shortness of breath. Since then he has also lost significant amount of weight and has been appearing very pale and weak. Since then he has been mostly sitting in home otherwise he is usually physically active. He has been using marijuana to mask his symptoms. He is not been very keen on coming to the hospital because of concerns of medical bills. His ECG showed sinus tachycardia with Q waves in anteroseptal leads along with evolving ST changes suggestive of old anteroseptal NC. Echocardiogram showed an EF of 25 to 30% along with apical hypokinesia with layered apical thrombus. RV appears dilated and small pericardial effusion was also noticed with respiratory variation of blood flow through tricuspid valve. At this time patient does not have signs of cardiogenic shock. He has warm extremities, good urine output, he is perfusing well, and is maintaining good blood pressure. He denies any active chest pain chest pressure. He reports his shortness of breath is improved since yesterday. Social history: Patient reports 1 pack tobacco smoking. He reports frequent marijuana use in form of edibles and smoking. He was a exes alcoholic and has not drank in last 7 years. Family history: Noncontributory to current clinical scenario at present. Needs to be reevaluated later. REVIEW OF SYSTEMS 14 point review of system is negative except what is mentioned above in HPI. PHYSICAL EXAMINATION Vital signs reviewed. Head: Normocephalic. Eyes: Sclerae nonicteric. Neck: Brisk carotid upstroke, has elevated jugular venous distention. Lungs: Clear to auscultation. Heart: Regular rate and rhythm, S1-S2, S2 is audible, no murmur Abdomen: Soft nontender, positive bowel sounds. Extremities: 1-2+ pitting edema bilateral lower extremity Neuro: Alert, oritented, no focal deficits. Detailed neuro exam was not performed. ASSESSMENT # late presenting myocardial infarction # NSTEMI # severe ischemic cardiomyopathy with LVEF 25 to 30% # layered apical thrombus # acute hypoxic respiratory failure due to acute CHF exacerbation due to above # small bilateral pleural effusion # small pericardial effusion with mild tricuspid inflow variation but no cli nical signs of tamponade. # Anemia # 1 pack tobacco smoker, marijuana user. # ex alcoholic, no alcohol use since last 7 years cardiac testing: His ECG showed sinus tachycardia with Q waves in anteroseptal leads along with evolving ST changes suggestive of old anteroseptal NC. Echocardiogram showed an EF of 25 to 30% along with apical hypokinesia with layered apical thrombus. RV appears dilated and small pericardial effusion was also noticed with respiratory variation of blood flow through tricuspid valve. PLAN Continue aspirin, atorvastatin, IV heparin drip Continue nitroglycerin drip with a goal blood pressure of systolic less than 120, MAP between 65 to 75 mmHg Start Entresto half tab 24/26 mg twice daily Continue IV Lasix 40 mg twice daily Plan for cardiac catheterization tomorrow in morning with Dr. Mendoza Avoid any beta-blockers. Check HbA1c level, lipid panel, iron levels, ferritin levels Patient's was updated about the current treatment plan over phone. All questions were answered. She is aware that patient's prognosis overall guarded. Avinash Mendoza MD, FACC, VI Thank you for allowing [facility] to participate in this patient's care. Feel free to reach out in case of any followup questions. Past Medical History Past Medical History: COPD Additional Past Medical History / Comment(s): kidney stone History of Any Multi-Drug Resistant Organisms: None Reported Past Surgical History: Heart Catheterization With Stent Past Anesthesia/Blood Transfusion Reactions: No Reported Reaction Date of Last Stent Placement:: 1989 Past Psychological History: No Psychological Hx Reported Smoking Status: Current every day smoker Past Alcohol Use History: None Reported Past Drug Use History: Marijuana - Past Family History Mother Additional Family Medical History / Comment(s): heart issues- Father Additional Family Medical History / Comment(s): of pancreatitis-alcoholic Medications and Allergies Home Medications Medication Instructions Recorded Confirmed Type No Known Home Medications 02/17/24 02/17/24 History Allergies Allergy/AdvReac Type Severity Reaction Status Date / Time No Known Allergies Allergy Verified 02/17/24 13:46 Physical Exam Vitals: Vital Signs Temp Pulse Pulse Resp BP BP Pulse Ox 02/18/24 15:30 100 15 93 L 02/18/24 15:00 110 H 29 H 108/73 94 L 02/18/24 14:30 110 H 26 H 104/78 93 L 02/18/24 14:00 109 H 25 H 102/74 94 L 02/18/24 13:30 111 H 24 107/77 93 L 02/18/24 13:00 19 105/70 89 L 02/18/24 12:30 109 H 28 H 108/91 91 L 02/18/24 12:00 35 H 103/72 02/18/24 11:30 98.3 F 109 H 22 103/72 93 L 02/18/24 11:00 121 H 93/64 91 L 02/18/24 10:30 108 H 99/69 91 L 02/18/24 10:00 108 H 108/72 90 L 02/18/24 09:30 107 H 101/70 90 L 02/18/24 09:00 106 H 102/73 90 L 02/18/24 08:30 97/63 94 L 02/18/24 08:00 98.7 F 107 H 30 H 91/61 97 02/18/24 07:48 02/18/24 07:45 02/18/24 07:30 105 H 23 106/79 98 02/18/24 07:00 105 H 22 115/86 98 02/18/24 06:30 105 H 17 114/85 96 02/18/24 06:00 106 H 25 H 104/67 95 02/18/24 05:30 108 H 30 H 110/83 98 02/18/24 05:00 108 H 25 H 110/83 93 L 02/18/24 04:30 108 H 30 H 120/95 97 02/18/24 04:00 97.9 F 108 H 30 H 113/85 96 02/18/24 03:35 02/18/24 03:30 109 H 110/83 98 02/18/24 03:00 106 H 107/70 96 02/18/24 02:30 109 H 3 L 116/85 97 02/18/24 02:00 114 H 34 H 118/82 02/18/24 01:30 112 H 106/75 97 02/18/24 01:00 111 H 24 123/93 97 02/18/24 00:45 02/18/24 00:30 110 H 28 H 117/84 96 02/18/24 00:20 112 H 30 H 117/84 95 02/18/24 00:00 98.4 F 112 H 23 115/97 95 02/17/24 23:30 112 H 24 118/91 97 02/17/24 23:00 112 H 32 H 101/82 97 02/17/24 22:30 116 H 18 119/83 91 L 02/17/24 22:00 112 H 29 H 124/91 92 L 02/17/24 21:30 110 H 20 138/80 86 L 02/17/24 21:00 106 H 15 120/90 97 02/17/24 20:30 105 H 33 H 119/98 98 02/17/24 20:00 106 H 23 108/86 02/17/24 19:57 106 H 37 H 02/17/24 19:38 97.6 F 55 L 36 H 122/81 96 02/17/24 18:52 97.6 F 107 H 32 H 123/75 97 02/17/24 18:30 102 H 25 H 135/79 98 02/17/24 18:00 106 H 29 H 120/87 98 02/17/24 17:30 103 H 30 H 126/88 98 FiO2 02/18/24 15:30 02/18/24 15:00 02/18/24 14:30 02/18/24 14:00 02/18/24 13:30 02/18/24 13:00 02/18/24 12:30 02/18/24 12:00 02/18/24 11:30 02/18/24 11:00 02/18/24 10:30 02/18/24 10:00 02/18/24 09:30 02/18/24 09:00 02/18/24 08:30 02/18/24 08:00 02/18/24 07:48 40 02/18/24 07:45 40 02/18/24 07:30 02/18/24 07:00 02/18/24 06:30 02/18/24 06:00 02/18/24 05:30 02/18/24 05:00 02/18/24 04:30 02/18/24 04:00 40 02/18/24 03:35 40 02/18/24 03:30 02/18/24 03:00 02/18/24 02:30 02/18/24 02:00 02/18/24 01:30 02/18/24 01:00 02/18/24 00:45 40 02/18/24 00:30 02/18/24 00:20 02/18/24 00:00 02/17/24 23:30 02/17/24 23:00 02/17/24 22:30 02/17/24 22:00 02/17/24 21:30 02/17/24 21:00 02/17/24 20:30 02/17/24 20:00 40 02/17/24 19:57 02/17/24 19:38 40 02/17/24 18:52 40 02/17/24 18:30 02/17/24 18:00 02/17/24 17:30 Intake and Output 02/18/24 02/18/24 02/18/24 06:59 14:59 22:59 Intake Total 161.972 311.162 8.500 Output Total 150 650 230 Balance 11.972 -338.838 -221.500 Intake: Intake, IV Titration 161.972 311.162 8.500 Amount Heparin Sod,Pork in 0.45% 63.072 120.262 NaCl 25,000 unit In 0.45 % NaCl 1 250ml.bag @ 12 UNITS/KG/HR 9.798 mls/hr IV .Q24H RICK Rx#: [id number] Nitroglycerin-D5w Pmx 50 98.900 190.900 8.500 mg In Dextrose/Water 1 250ml.bag @ 5 MCG/MIN 1.5 mls/hr IV .Q24H RICK Rx#: [id number] Output: Urine 150 650 230 Other: # Voids 0 0 Weight 72.4 kg Results 02/18/24 07:33 02/18/24 07:33 Cardiac Enzymes 02/17/24 02/17/24 Range/Units 17:12 20:46 Troponin I 40.000 H* 58.000 H* (0.000-0.034) ng/mL Coagulation 02/17/24 02/18/24 02/18/24 Range/Units 20:46 02:09 02:09 PT 13.6 H (10.0-12.5) sec APTT 30.8 H 33.6 H (22.0-30.0) sec 02/18/24 Range/Units 07:33 PT (10.0-12.5) sec APTT 50.3 H (22.0-30.0) sec Lipids 02/18/24 Range/Units 07:33 Triglycerides 105.00 (0.00-149.00) mg/dL Cholesterol 178.00 (0.00-200.00) mg/dL HDL Cholesterol 32.70 L (40.00-60.00) mg/dL Cholesterol/HDL Ratio 5.44 Ratio CBC 02/18/24 Range/Units 07:33 WBC 13.4 H (3.8-10.6) k/uL RBC 3.27 L (4.30-5.90) m/uL Hgb 9.3 L D (13.0-17.5) gm/dL Hct 29.2 L (39.0-53.0) % Plt Count 441 (150-450) k/uL Comprehensive Metabolic Panel 02/18/24 Range/Units 07:33 Sodium 140 (137-145) mmol/L Potassium 4.0 (3.5-5.1) mmol/L Chloride 108 H (98-107) mmol/L Carbon Dioxide 26 (22-30) mmol/L BUN 23 H (9-20) mg/dL Creatinine 0.96 (0.66-1.25) mg/dL Glucose 147 H (74-99) mg/dL Calcium 8.6 (8.4-10.2) mg/dL Current Medications Generic Name Dose Route Start Last Admin Trade Name Freq PRN Reason Stop Dose Admin Alprazolam 0.25 mg 02/18/24 14:00 Alprazolam 0.25 Mg Tab PO Q6HR PRN Mild Anxiety Aspirin 81 mg 02/18/24 09:00 02/18/24 09:04 Aspirin 81 Mg PO 81 mg DAILY RICK Administration Atorvastatin Calcium 80 mg 02/17/24 15:00 02/18/24 09:04 Atorvastatin 80 Mg Tab PO 80 mg DAILY RICK Administration Furosemide 40 mg 02/18/24 14:00 02/18/24 14:49 Furosemide 10 Mg/Ml 4 Ml Vial IV 40 mg Q12HR RICK Administration Heparin Sodium (Porcine) 0 unit 02/17/24 14:43 02/18/24 03:24 Heparin Sodium 1,000 Un/Ml (10ml Vl) IV 4,082 unit PER PROTOCOL PRN Administration Low PTT Protocol Heparin Sodium/Sodium Chloride 250 mls @ 9.798 mls/hr 02/17/24 14:45 02/18/24 11:29 25,000 unit/ Sodium Chloride IV 18 units/kg/hr .Q24H RICK 14.696 mls/hr Administration Protocol 12 UNITS/KG/HR Nitroglycerin/Dextrose 50 mg/ 250 mls @ 1.5 mls/hr 02/17/24 17:00 02/18/24 15:30 IV Solution IV 40 mcg/min .Q24H RICK 12 mls/hr Titration Protocol 5 MCG/MIN Heparin Sodium (Porcine) 10, 1,001 mls @ 999 mls/hr 02/19/24 07:00 000 unit/ Sodium Chloride IRRIGATION 02/19/24 23:00 ONCE PRN INTRA-OP Heparin Sodium (Porcine) 2,500 250.5 mls @ 250 mls/hr 02/19/24 07:00 unit/ Sodium Chloride IRRIGATION 02/19/24 23:00 ONCE PRN INTRA-OP Sodium Chloride 1,000 ml/ IV 1,000 mls @ 40 mls/hr 02/19/24 03:00 Solution IV 02/19/24 06:59 .Q24H RICK Pantoprazole Sodium 40 mg 02/18/24 09:00 02/18/24 09:04 Pantoprazole 40 Mg/10 Ml Vial IVP 40 mg DAILY RICK Administration Sacubitril/Valsartan 0.5 each 02/18/24 14:00 02/18/24 14:47 Sacubitril/Valsartan 24 Mg-26 Mg Tablet PO 0.5 each BID RICK Administration Intake and Output 02/18/24 02/18/24 02/18/24 06:59 14:59 22:59 Intake Total 161.972 311.162 8.500 Output Total 150 650 230 Balance 11.972 -338.838 -221.500 Intake: Intake, IV Titration 161.972 311.162 8.500 Amount Heparin Sod,Pork in 0.45% 63.072 120.262 NaCl 25,000 unit In 0.45 % NaCl 1 250ml.bag @ 12 UNITS/KG/HR 9.798 mls/hr IV .Q24H RICK Rx#: [id number] Nitroglycerin-D5w Pmx 50 98.900 190.900 8.500 mg In Dextrose/Water 1 250ml.bag @ 5 MCG/MIN 1.5 mls/hr IV .Q24H RICK Rx#: [id number] Output: Urine 150 650 230 Other: # Voids 0 0 Weight 72.4 kg 02/18/24 07:33 02/18/24 07:33
[2024-02-18 17:50] LABS: T4, Free (Free Thyroxine) 1.73 ng/dL (0.78-2.19)
[2024-02-19 01:52] LABS: % Iron Saturation 29.69 (15.00-50.00); Iron 57 UG/DL (65-175); Total Iron Binding Capacity 192 UG/DL (228-460)
[2024-02-19] MEDS: SODIUM CHLORIDE 0.9% 1,000 ML in EMPTY BAG 1 BAG IV SCH (03:08)
[2024-02-19 06:04] LABS: Anisocytosis Slight; Basophils % (A) 0 %; Eosinophils % (A) 0 %; HCT 30.5 % (39.0-53.0); HGB 10.1 gm/dL (13.0-17.5); Hypochromasia Slight; Lymphocytes # (A) 1.3 k/uL (1.0-4.8); Lymphocytes % (A) 11 %; MCHC 33.1 g/dL (31.0-37.0); MCV 87.7 fL (80.0-100.0); Mean Platelet Volume 8.5; Monocytes # (A) 0.5 k/uL (0-1.0); Monocytes % (A) 4 %; Neutrophils # (A) 10.1 k/uL (1.3-7.7); Neutrophils % (A) 84 %; Platelet Count 474 k/uL (150-450); Poikilocytosis Slight; RBC 3.48 m/uL (4.30-5.90)
[2024-02-19 06:21] LABS: African American GFR (CKD) 88 (>60 ml/min/1.73 sqM); Anion Gap 6 mmol/L; Blood Urea Nitrogen 26 mg/dL (9-20); Calcium 8.6 mg/dL (8.4-10.2); Carbon Dioxide 29 mmol/L (22-30); Chloride 106 mmol/L (98-107); Glucose 120 mg/dL (74-99); Non-African American GFR(CKD) 76 (>60 ml/min/1.73 sqM); Potassium 3.3 mmol/L (3.5-5.1); Sodium 141 mmol/L (137-145)
[2024-02-19] MEDS ORDERED: Potassium Replacement Protocol 1 EACH MISC MISCELLANE PRN (06:34)
[2024-02-19] MEDS ORDERED: HEPARIN SODIUM,PORCINE 10,000 UNIT in SODIUM CHLORIDE 0.9% 1,000 ML IRRIGATION PRN (07:00)
[2024-02-19] MEDS ORDERED: HEPARIN SODIUM,PORCINE (1 ML) 2,500 UNIT in SODIUM CHLORIDE 0.9% 250 ML IRRIGATION PRN (07:00)
[2024-02-19] MEDS: HEPARIN SODIUM,PORCINE (1 ML) 2,500 UNIT in SODIUM CHLORIDE 0.9% 250 ML IRRIGATION ONE (07:39)
[2024-02-19] MEDS: SODIUM CHLORIDE 0.9% 1,000 ML IV ONE (07:39)
[2024-02-19] MEDS: HEPARIN SODIUM,PORCINE 10,000 UNIT in SODIUM CHLORIDE 0.9% 1,000 ML IRRIGATION ONE (07:39)
--- NOTE | 2024-02-19 07:42 | XR ---
EXAMINATION TYPE: XR chest 1V DATE OF EXAM: 02/19/2024 COMPARISON: 02/18/2024 INDICATION: Pulmonary edema TECHNIQUE: Single frontal view of the chest is obtained. FINDINGS: The heart size is enlarged. The pulmonary vasculature is prominent. Diffuse perihilar increased lung markings are present. IMPRESSION: 1. Clinical correlation recommended for congestive heart failure and pulmonary edema. Continued follo w-up recommended. [facility], , 02/19/2024 7:39 AM
[2024-02-19] MEDS: MIDAZOLAM 2 MG/2 ML VIAL IVP ONE (08:01)
[2024-02-19] MEDS: fentaNYL (PF) 50 MCG/ML 2 ML AMP IVP ONE (08:01)
[2024-02-19] MEDS: LIDOCAINE 1% INJ 10MG/ML (20 ML MDV) SQ ONE (08:03)
[2024-02-19] MEDS: VERAPAMIL SYRINGE (5 MG/10 ML) INTRAARTER ONE (08:06)
[2024-02-19] MEDS: HEPARIN SODIUM 1,000 UN/ML (10ML VL) IVP ONE (08:09)
[2024-02-19] MEDS: IOPAMIDOL-370 100ML BTL INJ ONE (08:27)
[2024-02-19] MEDS ORDERED: RX INFO: IV CONTRAST WAS GIVEN 1 EACH MISC MISCELLANE PRN (08:39)
[2024-02-19 08:49] LABS: Glucose,Whole Blood 128 mg/dL (70-110)
[2024-02-19] MEDS: SODIUM CHLORIDE 0.9% 1,000 ML IV SCH (09:00)
[2024-02-19] MEDS: POTASSIUM CHLORIDE ER 20 MEQ TAB.ER PO SCH ×3 (09:55→19:44)
--- NOTE | 2024-02-19 11:15 | P.PN ---
Subjective Progress Note Date: 02/19/24 Subjective: Patient is a 63-year-old male with hypertension and remote history of CAD status post stent in early came to ED with worsening exertional dyspnea that started 1 week ago. Patient states that he suddenly felt short of breath a week ago while carrying his laundry upstairs from the basement and he had to sit on the stairs for couple of minutes to catch his breath. He denies any associated chest pain or diaphoresis. Since then his shortness of breath has been getting worse. It is worse with physical activities such as walking or climbing stairs and better with rest. He also has been endorsing orthopnea and PND since 1 week. He felt his symptoms were worst today which prompted him to come to the ER. Patient never experienced these symptoms in the past although he states that he had chest pain in early and had a stent put in. Denies any recent hospitalization, upper respiratory tract infection, recent travel. Patient is not on any blood thinners. No history of blood clots. Denies any use of illicit drug except for occasional LSD and marijuana. He otherwise has no other ongoing medical condition. At the time of interview patient is feeling better with BiPAP and pain medication. He continues to deny any active chest pain. Laboratory evaluation in the ER shows WBC 12.2, hemoglobin 11.2, hematocrit 35.2, platelet count 414, PT 13.0, INR 1.2, APTT 20.3, pH 7.26, pCO2 49, bicarb 20, sodium 140, potassium 4.2, chloride 108, BUN 30, creatinine 0.8, glucose 182, Lactic acid 4.2, troponin I 10.600, NT proBNP [id number]: Tmax 97.1, heart rate 120, respiration rate 36, blood pressure 135/89, oxygen saturation 98% on BiPAP with a setting of IPAP 14, EPAP 6, respirate 14, FiO2 50%. Chest x-ray independently interpreted shows diffuse reticular markings bilaterally. EKG independently interpreted shows sinus tachycardia with normal IN interval, normal QRS interval and normal QTc interval. ST elevation noted in V3 with T wave inversion in V4, V5 and V6. Patient is admitted for acute CHF secondary to ACS with elevated troponin levels. Cardiology is consulted. Pulmonology consulted. Patient is transferred to ICU for close monitoring. Patient is currently on nitroglycerin drip and BiPAP. Patient went for cath and will undergo open heart consult for CABG. coronary angiography show 100% thrombotic mid-distal LAD stenosis, RAN 0 flow, 80% OM1 disease, 80% distal LCx disease, 40% diffuse RCA disease, 80 to 90% PDA disease. All Systems reviewed and pertinent positives and negatives noted in HPI, all other symptoms are negative Objective: Patient seen and examined at the bedside. No acute events overnight. No chest pain or Shortness of breath. Currently off BiPAP Vital signs reviewed. Data reviewed today: Labs: WBC 12.0, hemoglobin 10.1, hematocrit 30.5, platelet count 474, sodium 141, potassium 3.3, BUN 26, creatinine 1.06, glucose 120 No new imaging Physical examination: Vital signs reviewed General: non toxic, mild distress, appears at stated age, overweight Derm: no unusual rashes/lesions, warm Head: atraumatic, normocephalic, symmetric Eyes: EOMI, no lid lag, anicteric sclera, pupils equal round reactive to light ENT: Nose and ears atraumatic Neck: No cervical lymphadenopathy, trachea midline, supple Mouth: no lip lesion, mucus membranes moist Cardiovascular: S1S2 reg, no murmur, positive dorsalis pedis pulse bilateral, 1+ pitting edema RLE and 1+ pitting edema LLE Lungs: Decreased breath sounds bilaterally, no rhonchi, no rales, no accessory muscle use Abdominal: soft, nontender to palpation, no guarding Ext: muscle strength 5 out of 5 in all 4 extremities grossly, no gross muscle atrophy, no contractures, Neuro: CN II-XI grossly intact, no gross focal neuro deficits Psych: Alert, oriented, appropriate affect Assessment/Plan: 63-year-old male with past medical history of CAD status post stent and hypertension came to the ER with worsening exertional dyspnea likely has acute congestive heart failure exacerbation secondary to STEMI #Acute systolic congestive heart failure exacerbation secondary to STEMI #Remote history of CAD status post stent #Congestive Hepatopathy #Pericardial Effusion #Severe ischemic cardiomyopathy Chest x-ray shows diffuse reticulo-nodular markings bilaterally EKG in ED shows ST elevation noted in V3 with T wave inversion in V4, V5 and V6 Troponin I continue to trend upward from 10.6 --> 40--> 58; repeat Trop NT proBNP [id number] Anticoagulation with heparin drip Lasix 40 mg every 12 hour Atorvastatin 80 mg p.o. daily, aspirin 81 mg p.o. daily Strict I's and O's, daily weights, fluid restriction 1.5 L Lipid panel ordered N.p.o. diet Echocardiogram shows left ventricular ejection fraction 25 to 30%. Large left ventricular apical thrombus, apical/lateral wall/posterior wall hypokinesis Extensive discussion with cardiology, patient likely had completed infarct, will likely need ischemic evaluation during this admission Cardiac catheterization shows multivessel stenosis including 100% mid to distal LAD, 80% OM1, 80% distal LCx, 40% RCA, 80 to 90% PDA; cardiothoracic surgery to be consulted for CABG c/w nitroglycerin drip, keep systolic blood pressure less than 120 Continue cardiac telemetry Continue monitor CBC and BMP Pulmonology consulted Start guideline directed medical therapy for CHF: on entresto 24/26 mg half tablet p.o. twice daily #Hypokalemia Status post 2 doses of potassium chloride 20 mg mEq p.o. Repeat BMP in the afternoon #Hypertension Not on home medication #Normocytic anemia secondary to anemia of chronic disease Hemoglobin 10.1, MCV 87.7 Patient denies active bleeding Continue to monitor CBC Transfusion with PRBC if hemoglobin less than 7 Iron 57, TIBC 192, transferrin 137, ferritin 2441 #Subclinical hypothyroidism TSH 4.7, free T4 1.73 Resolved: #Elevated lactic acid secondary to above, resolved #Anion gap metabolic acidosis secondary to lactic acidosis, resolved DVT prophylaxis with heparin drip Code Status: Full code Anticipated discharge place: Pending clinical course Anticipated discharge date: Pending clinical course I saw and evaluated the patient during the yanes and critical portions of this encounter, and discussed the case in detail with the resident author of this note, I agree with the Assessment and Plan, and my changes, if any, are highlighted in blue. Objective - Vital Signs Vital signs: Vital Signs Temp 98.2 F 02/19/24 09:00 Pulse 106 H 02/19/24 10:00 Resp 18 02/19/24 10:00 BP 98/66 02/19/24 10:00 Pulse Ox 96 02/19/24 10:00 FiO2 40 02/18/24 07:48 Intake & Output 02/18/24 02/19/24 02/19/24 18:59 06:59 18:59 Intake Total 343.912 494.35 350 Output Total 1480 1500 Balance -1136.088 -1005.65 350 Weight 68.4 kg Intake: IV 100 Intake, IV Titration 343.912 494.35 150 Amount Heparin Sod,Pork in 0.45% 120.262 250 NaCl 25,000 unit In 0.45 % NaCl 1 250ml.bag @ 12 UNITS/KG/HR 9.798 mls/hr IV .Q24H RICK Rx#: [id number] Nitroglycerin-D5w Pmx 50 223.650 44.35 mg In Dextrose/Water 1 250ml.bag @ 5 MCG/MIN 1.5 mls/hr IV .Q24H RICK Rx#: [id number] Sodium Chloride 0.9% 1, 150 000 ml @ 75 mls/hr IV . [id number] RICK Rx#:[id number] Sodium Chloride 0.9% 1, 200 000 ml In Empty Bag 1 bag @ 40 mls/hr IV .Q24H RICK Rx#:[id number] Oral 100 Output: Urine 1480 1500 Other: # Voids 0 0 - Labs CBC & Chem 7: 02/19/24 05:46 02/19/24 17:51 Labs: Abnormal Lab Results - Last 24 Hours (Table) 02/18/24 02/18/24 02/18/24 Range/Units 07:33 14:55 14:55 WBC (3.8-10.6) k/uL RBC (4.30-5.90) m/uL Hgb (13.0-17.5) gm/dL Hct (39.0-53.0) % RDW (11.5-15.5) % Plt Count (150-450) k/uL Neutrophils # (1.3-7.7) k/uL APTT (22.0-30.0) sec Potassium (3.5-5.1) mmol/L BUN (9-20) mg/dL Glucose (74-99) mg/dL POC Glucose (mg/dL) (70-110) mg/dL Hemoglobin A1c 6.1 H (<=6.0) % Iron 57 L (65-175) UG/DL TIBC 192 L (228-460) UG/DL Transferrin 137.0 L (204.0-354.0) mg/dL Ferritin 2441.0 H (22.0-322.0) ng/mL Troponin I (0.000-0.034) ng/mL HDL Cholesterol 32.70 L (40.00-60.00) mg/dL TSH 4.720 H (0.465-4.680) mIU/L 02/18/24 02/19/24 02/19/24 Range/Units 18:13 05:46 05:46 WBC 12.0 H (3.8-10.6) k/uL RBC 3.48 L (4.30-5.90) m/uL Hgb 10.1 L (13.0-17.5) gm/dL Hct 30.5 L (39.0-53.0) % RDW 16.0 H (11.5-15.5) % Plt Count 474 H (150-450) k/uL Neutrophils # 10.1 H (1.3-7.7) k/uL APTT (22.0-30.0) sec Potassium 3.3 L (3.5-5.1) mmol/L BUN 26 H (9-20) mg/dL Glucose 120 H (74-99) mg/dL POC Glucose (mg/dL) (70-110) mg/dL Hemoglobin A1c (<=6.0) % Iron (65-175) UG/DL TIBC (228-460) UG/DL Transferrin (204.0-354.0) mg/dL Ferritin (22.0-322.0) ng/mL Troponin I 39.600 H* (0.000-0.034) ng/mL HDL Cholesterol (40.00-60.00) mg/dL TSH (0.465-4.680) mIU/L 02/19/24 02/19/24 Range/Units 05:46 08:47 WBC (3.8-10.6) k/uL RBC (4.30-5.90) m/uL Hgb (13.0-17.5) gm/dL Hct (39.0-53.0) % RDW (11.5-15.5) % Plt Count (150-450) k/uL Neutrophils # (1.3-7.7) k/uL APTT 34.2 H (22.0-30.0) sec Potassium (3.5-5.1) mmol/L BUN (9-20) mg/dL Glucose (74-99) mg/dL POC Glucose (mg/dL) 128 H (70-110) mg/dL Hemoglobin A1c (<=6.0) % Iron (65-175) UG/DL TIBC (228-460) UG/DL Transferrin (204.0-354.0) mg/dL Ferritin (22.0-322.0) ng/mL Troponin I (0.000-0.034) ng/mL HDL Cholesterol (40.00-60.00) mg/dL TSH (0.465-4.680) mIU/L
--- NOTE | 2024-02-19 11:19 | P.GSCN ---
History of Present Illness Consult date: 02/19/24 Reason for Consult: Coronary artery disease, non-STEMI this admission Requesting physician: Avinash Mendoza History of present illness: This is a 63-year-old gentleman who does not follow outpatient with a primary care physician on a regular basis. He has a previous medical history of coronary artery disease with previous myocardial infarction and stent placement in 1989, hypertension, kidney stones, current chronic tobacco dependence, marijuana use, and previous EtOH abuse. He has been on no medications at home. He presented to [facility] yesterday with complaints of significant shortness of breath and diaphoresis occurring at rest over a 24-hour period. EKG in the emergency room demonstrated Q waves in the anteroseptal leads with some ST changes in the anterior leads. Chest x-ray demonstrated vascular congestion consistent with heart failure. Troponins were drawn and were elevated at 10.6 going up to 58 and patient was ruled in for non-STEMI. In addition his BNP was elevated at 12,500 and he was ruled in for acute heart failure. Additional lab work revealed WBC 12.2, hemoglobin 11.2, INR 1.2, creatinine 0.8, lactic acid 4.2, and COVID PCR was negative. The patient was admitted for evaluation and treatment with consultation placed to cardiology. He was started on aspirin, statin, Entresto, IV nitro, as well as IV Lasix. He did have a transthoracic echocardiogram demonstrating hypokinesis in the apex, septum, posterior wall, lateral as well as anterior wall, EF 25 to 30%, large LV apical thrombus, severe pulmonary hypertension with RVSP 65 mmHg, moderate mitral regurgitation, moderate tricuspid regurgitation, trace to mild aortic regurgitation, and moderate pericardial effusion. He was recommended to undergo heart catheterization which was completed today by Dr. Mendoza which revealed proximal LAD stenosis 50%, mid LAD stenosis 100%, circumflex stenosis 90%, and RCA stenosis 40%. Due to these findings consultation was placed to Dr. Donato from cardiothoracic surgery for surgical revascularization recommendations. Review of Systems Review of systems was completed and was negative except as noted - Constitutional Reports sweats - Cardiovascular Reports shortness of breath Past Medical History Past Medical History: Coronary Artery Disease (CAD), COPD, Hypertension, Myocardial Infarction (ID) Additional Past Medical History / Comment(s): kidney stone History of Any Multi-Drug Resistant Organisms: None Reported Past Surgical History: Heart Catheterization With Stent, Tonsillectomy Past Anesthesia/Blood Transfusion Reactions: No Reported Reaction Date of Last Stent Placement:: 1989 Past Psychological History: No Psychological Hx Reported Smoking Status: Current every day smoker Past Alcohol Use History: None Reported Past Drug Use History: Marijuana - Past Family History Mother Additional Family Medical History / Comment(s): heart issues- from myocardi al infarction at 67 years old Father Additional Family Medical History / Comment(s): of pancreatitis-alcoholic Medications and Allergies Home Medications Medication Instructions Recorded Confirmed Type No Known Home Medications 02/17/24 02/17/24 History Allergies Allergy/AdvReac Type Severity Reaction Status Date / Time No Known Allergies Allergy Verified 02/17/24 13:46 Surgical - Exam Vital Signs Resp 42 H 02/17/24 13:40 CONSTITUTIONAL: Awake and alert, appears comfortable, cooperative, well- developed, well-nourished, no pain, no acute distress EYES: Pupils equal, round, reactive to light, normal ocular movement ENT: Moist mucous membranes without oral lesions present NECK: No masses, no bruits, trachea midline RESPIRATORY: Lungs sounds diminished bilaterally. Respirations even, nonlabored. Currently on room air with oxygen saturation 97%. Strong cough. No chest wall deformities. No clubbing or cyanosis present CARDIOVASCULAR: S1, S2 present. Regular rate and rhythm, sinus tach on telemetry. Palpable peripheral pulses bilaterally. No edema present. No calf pain or tenderness noted. No significant lower extremity varicosities noted GASTROINTESTINAL: Abdomen soft, nontender, nondistended without masses or organomegaly noted. There is no rebound or guarding present. Active bowel ana nds present 4 quadrants. GENITOURINARY: Deferred INTEGUMENTARY: Skin is warm and dry NEUROLOGIC: Cranial nerves II through XII intact, normal coordination, no obvious motor or sensory deficits, speech is normal MUSKULOSKELETAL: Able to move all extremities, strength equal bilaterally, normal posture PSYCHIATRIC: Alert and oriented to person place and time, appropriate affect, intact judgment and insight CLINICAL FRAILTY SCORE 3 Results - Labs 02/19/24 05:46 02/19/24 12:57 Abnormal Lab Results - Last 24 Hours (Table) 02/18/24 02/18/24 02/18/24 Range/Units 07:33 14:55 14:55 WBC (3.8-10.6) k/uL RBC (4.30-5.90) m/uL Hgb (13.0-17.5) gm/dL Hct (39.0-53.0) % RDW (11.5-15.5) % Plt Count (150-450) k/uL Neutrophils # (1.3-7.7) k/uL APTT (22.0-30.0) sec Potassium (3.5-5.1) mmol/L BUN (9-20) mg/dL Glucose (74-99) mg/dL POC Glucose (mg/dL) (70-110) mg/dL Hemoglobin A1c 6.1 H (<=6.0) % Iron 57 L (65-175) UG/DL TIBC 192 L (228-460) UG/DL Transferrin 137.0 L (204.0-354.0) mg/dL Ferritin 2441.0 H (22.0-322.0) ng/mL Troponin I (0.000-0.034) ng/mL HDL Cholesterol 32.70 L (40.00-60.00) mg/dL TSH 4.720 H (0.465-4.680) mIU/L 02/18/24 02/19/24 02/19/24 Range/Units 18:13 05:46 05:46 WBC 12.0 H (3.8-10.6) k/uL RBC 3.48 L (4.30-5.90) m/uL Hgb 10.1 L (13.0-17.5) gm/dL Hct 30.5 L (39.0-53.0) % RDW 16.0 H (11.5-15.5) % Plt Count 474 H (150-450) k/uL Neutrophils # 10.1 H (1.3-7.7) k/uL APTT (22.0-30.0) sec Potassium 3.3 L (3.5-5.1) mmol/L BUN 26 H (9-20) mg/dL Glucose 120 H (74-99) mg/dL POC Glucose (mg/dL) (70-110) mg/dL Hemoglobin A1c (<=6.0) % Iron (65-175) UG/DL TIBC (228-460) UG/DL Transferrin (204.0-354.0) mg/dL Ferritin (22.0-322.0) ng/mL Troponin I 39.600 H* (0.000-0.034) ng/mL HDL Cholesterol (40.00-60.00) mg/dL TSH (0.465-4.680) mIU/L 02/19/24 02/19/24 Range/Units 05:46 08:47 WBC (3.8-10.6) k/uL RBC (4.30-5.90) m/uL Hgb (13.0-17.5) gm/dL Hct (39.0-53.0) % RDW (11.5-15.5) % Plt Count (150-450) k/uL Neutrophils # (1.3-7.7) k/uL APTT 34.2 H (22.0-30.0) sec Potassium (3.5-5.1) mmol/L BUN (9-20) mg/dL Glucose (74-99) mg/dL POC Glucose (mg/dL) 128 H (70-110) mg/dL Hemoglobin A1c (<=6.0) % Iron (65-175) UG/DL TIBC (228-460) UG/DL Transferrin (204.0-354.0) mg/dL Ferritin (22.0-322.0) ng/mL Troponin I (0.000-0.034) ng/mL HDL Cholesterol (40.00-60.00) mg/dL TSH (0.465-4.680) mIU/L Diabetes panel 02/18/24 02/18/24 02/19/24 Range/Units 07:33 14:55 05:46 Sodium 141 (137-145) mmol/L Potassium 3.3 L (3.5-5.1) mmol/L Chloride 106 (98-107) mmol/L Carbon Dioxide 29 (22-30) mmol/L BUN 26 H (9-20) mg/dL Creatinine 1.06 (0.66-1.25) mg/dL Glucose 120 H (74-99) mg/dL Hemoglobin A1c 6.1 H (<=6.0) % Calcium 8.6 (8.4-10.2) mg/dL Triglycerides 105.00 (0.00-149.00) mg/dL HDL Cholesterol 32.70 L (40.00-60.00) mg/dL Thyroid panel 02/18/24 Range/Units 14:55 TSH 4.720 H (0.465-4.680) mIU/L Calcium panel 02/19/24 Range/Units 05:46 Calcium 8.6 (8.4-10.2) mg/dL Pituitary panel 02/18/24 02/19/24 Range/Units 14:55 05:46 Sodium 141 (137-145) mmol/L Potassium 3.3 L (3.5-5.1) mmol/L Chloride 106 (98-107) mmol/L Carbon Dioxide 29 (22-30) mmol/L BUN 26 H (9-20) mg/dL Creatinine 1.06 (0.66-1.25) mg/dL Glucose 120 H (74-99) mg/dL Calcium 8.6 (8.4-10.2) mg/dL TSH 4.720 H (0.465-4.680) mIU/L Adrenal panel 02/19/24 Range/Units 05:46 Sodium 141 (137-145) mmol/L Potassium 3.3 L (3.5-5.1) mmol/L Chloride 106 (98-107) mmol/L Carbon Dioxide 29 (22-30) mmol/L BUN 26 H (9-20) mg/dL Creatinine 1.06 (0.66-1.25) mg/dL Glucose 120 H (74-99) mg/dL Calcium 8.6 (8.4-10.2) mg/dL - Imaging Chest x-ray: report reviewed, image reviewed EKG: image reviewed Assessment and Plan Assessment: Coronary artery disease with previous myocardial infarction and stent placement in 1989, non-STEMI this admission Acute heart failure with reduced ejection fraction, EF 25 to 30% Moderate mitral regurgitation, tricuspid regurgitation Moderate pericardial effusion on transthoracic echocardiogram Large left ventricular apical thrombus History of hypertension Kidney stones Current chronic tobacco dependence Marijuana use Previous EtOH abuse Family history of coronary artery disease, mother from myocardial infarction at 67 years old Addendum: Patient withknown history ofCADandcoronary stenting, chronically noncompliant with medical therapy. Chronic smoker with no interest in quitting. Entire distal anterior and apical wall chronically infarcted with diskinesia and intracavitatry laminated thrombus. LVEF resultantly poor. RVEF is also low. Very high risk with limited benefit from CABG alone. [place] operation would entail bypass to diagonal and circuflex difusely diseased branches and resection of apical aneurym with Bereket reconstruction. Mortality of this procedure likely over 10%. Discussed with Dr Mendoza. Plan: The patient was seen and examined sitting up in bed in the intensive care unit in no acute distress. Denies chest pain or shortness of breath at this time. Remains in sinus tach, hemodynamically stable. Will review heart catheterization films, echocardiogram films as well as diagnostics with Dr. Donato. The usual perioperative course of open-heart surgery was discussed with the patient, risks and benefits were reviewed, all questions were answered. Recommend continuing to maximize medical therapy with aspirin, statin, beta- ruslan, Entresto, diuretics. Patient was counseled regarding smoking cessation, he states he wants to quit but it is hard when the store is just down the street from his house. More recommendations to follow once Dr. Donato has had the opportunity to review patient's films and discuss with Dr. Mendoza. Thank you Dr. Mendoza for this consult. I have personally seen and examined the patient, performed the documentation and the assessment and plan as written. Number of minutes spent on the visit: 30. Donita Agosto, [id number]
--- NOTE | 2024-02-19 11:21 | P.PN ---
Subjective Progress Note Date: 02/19/24 Principal diagnosis: Patient is a 63-year-old white male with past medical history significant for coronary artery disease with previous PCI/stent. Patient does not have a current primary care provider. He smokes approximately 1 pack/day, and has over [id number] history. Patient presented the emergency department yesterday with 24 hours of relatively acute onset shortness of breath associated with nausea and diaphoresis. This occurred while sitting down and watching TV. He does admit to feeling generally unwell and fatigued, over the last week or so. He denies any actual chest pain. He was placed on BiPAP in the emergency department. EKG done on arrival showed some questionable ST segment elevation in the anterior leads. His troponins are elevated at 40, 58 respectively. An echocardiogram was performed in the emergency department, we are awaiting official results. Patient reportedly had a left ventricle thrombus. Patient currently on a heparin drip per protocol. Also, receiving nitroglycerin infusion at 25 mcg/min. Chest x-ray consistent with pulmonary edema. patient was placed on BiPAP in the emergency department, which she continues on with settings 14/6 and FiO2 of 40%. He is still tachypneic. Respiratory rate is in the mid 30s. Tidal volume 450-500. He is receiving Lasix 20 mg twice daily. CBC: WBC count 12.2, hemoglobin 11.2, hematocrit 35.2, platelets 414. CMP: Sodium 140, potassium 4.2, chloride 108, serum bicarb 20, BUN 13, creatinine 0.8, glucose 182. Lactic mildly elevated at 4.2 and down to 2. LFTs unremarkable. NT proBNP significantly elevated at 12,500. COVID-negative. Patient denies any infectious-like symptoms. I am evaluating this patient in the intensive care unit, room 257. He remains on BiPAP he is slightly tachypneic, but fairly comfortable considering. He is able to speak in full sentences and answer most of my questions. No accessory muscle use. SpO2 is reading 97%. He is only voided 1 time since Lasix. Remains tachycardic with a current rate of 112 bpm. Blood pressure 101/82 mmHg. Not currently requiring any vasopressor support. We are awaiting further recommendations from cardiology. Progress note dated February 19, 2024 Patient evaluated in the ICU today. He presented for worsening exertional dyspnea and his troponins up trended from 10 to 40-58 and his echo showed 25 to 30% ejection fraction with apical hypokinesia, layered apical thrombus and a dilated RV. Cardiology recommended to avoid beta-blockers. PROBNP was 12,500. He was diagnosed with non-STEMI and acute hypoxic respiratory failure secondary to CHF exacerbation. He got left heart catheterization done today. 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 Nitroglycerin drip will be restarted at 5 mcg/min and heparin drip will be restarted after 3 hours of cardiac cath. He will also get 0.9 normal saline at 75 mL/h. He is on 2 L nasal cannula saturating at 96%. Labs today show WBC 12, hemoglobin 10.1, platelet 474, sodium 141, potassium 3.3, chloride 106, bicarb 29, BUN 26, creatinine 0.6, glucose 128, APTT 34.0, A1c 6.12, iron 57, TIBC 192, transferrin 137, ferritin 2441, percent saturation 29, last troponin(02/17) is 39. Objective - Vital Signs Vital signs: Vital Signs Temp 98.2 F 02/19/24 09:00 Pulse 106 H 02/19/24 10:00 Resp 18 02/19/24 10:00 BP 98/66 02/19/24 10:00 Pulse Ox 96 02/19/24 10:00 FiO2 40 02/18/24 07:48 Intake & Output 02/18/24 02/19/24 02/19/24 18:59 06:59 18:59 Intake Total 343.912 494.35 350 Output Total 1480 1500 Balance -1136.088 -1005.65 350 Weight 68.4 kg Intake: IV 100 Intake, IV Titration 343.912 494.35 150 Amount Heparin Sod,Pork in 0.45% 120.262 250 NaCl 25,000 unit In 0.45 % NaCl 1 250ml.bag @ 12 UNITS/KG/HR 9.798 mls/hr IV .Q24H RICK Rx#: [id number] Nitroglycerin-D5w Pmx 50 223.650 44.35 mg In Dextrose/Water 1 250ml.bag @ 5 MCG/MIN 1.5 mls/hr IV .Q24H RICK Rx#: [id number] Sodium Chloride 0.9% 1, 150 000 ml @ 75 mls/hr IV . [id number] RICK Rx#:[id number] Sodium Chloride 0.9% 1, 200 000 ml In Empty Bag 1 bag @ 40 mls/hr IV .Q24H RICK Rx#:[id number] Oral 100 Output: Urine 1480 1500 Other: # Voids 0 0 - Exam GENERAL EXAM: Alert, 63-year-old white male, on 2 L nasal cannula. HEAD: Normocephalic and atraumatic EYES: Normal reaction of pupils, equal size. NOSE: Clear with pink turbinates. THROAT: No erythema or exudates. NECK: No masses, no JVD. CHEST: No chest wall deformity. LUNGS: Equal air entry with bibasilar crackles. No wheezes, rhonchi, focal diminished lung sounds. On BiPAP. Tachypneic. No conversational dyspnea or accessory muscle use.. CVS: S1 and S2 normal with no audible murmur, regular rhythm. No extra heart sounds ABDOMEN: No hepatosplenomegaly, active bowel sounds, no guarding or rigidity. SPINE: No scoliosis or deformity SKIN: No rashes CENTRAL NERVOUS SYSTEM: No focal deficits, tone is normal in all 4 extremities. EXTREMITIES: There is mild nonpitting lower extremity edema bilaterally. No clubbing, or cyanosis. Peripheral pulses are intact. - Labs CBC & Chem 7: 02/19/24 05:46 02/19/24 05:46 Labs: Abnormal Lab Results - Last 24 Hours (Table) 02/18/24 02/18/24 02/18/24 Range/Units 07:33 14:55 14:55 WBC (3.8-10.6) k/uL RBC (4.30-5.90) m/uL Hgb (13.0-17.5) gm/dL Hct (39.0-53.0) % RDW (11.5-15.5) % Plt Count (150-450) k/uL Neutrophils # (1.3-7.7) k/uL APTT (22.0-30.0) sec Potassium (3.5-5.1) mmol/L BUN (9-20) mg/dL Glucose (74-99) mg/dL POC Glucose (mg/dL) (70-110) mg/dL Hemoglobin A1c 6.1 H (<=6.0) % Iron 57 L (65-175) UG/DL TIBC 192 L (228-460) UG/DL Transferrin 137.0 L (204.0-354.0) mg/dL Ferritin 2441.0 H (22.0-322.0) ng/mL Troponin I (0.000-0.034) ng/mL HDL Cholesterol 32.70 L (40.00-60.00) mg/dL TSH 4.720 H (0.465-4.680) mIU/L 02/18/24 02/19/24 02/19/24 Range/Units 18:13 05:46 05:46 WBC 12.0 H (3.8-10.6) k/uL RBC 3.48 L (4.30-5.90) m/uL Hgb 10.1 L (13.0-17.5) gm/dL Hct 30.5 L (39.0-53.0) % RDW 16.0 H (11.5-15.5) % Plt Count 474 H (150-450) k/uL Neutrophils # 10.1 H (1.3-7.7) k/uL APTT (22.0-30.0) sec Potassium 3.3 L (3.5-5.1) mmol/L BUN 26 H (9-20) mg/dL Glucose 120 H (74-99) mg/dL POC Glucose (mg/dL) (70-110) mg/dL Hemoglobin A1c (<=6.0) % Iron (65-175) UG/DL TIBC (228-460) UG/DL Transferrin (204.0-354.0) mg/dL Ferritin (22.0-322.0) ng/mL Troponin I 39.600 H* (0.000-0.034) ng/mL HDL Cholesterol (40.00-60.00) mg/dL TSH (0.465-4.680) mIU/L 02/19/24 02/19/24 Range/Units 05:46 08:47 WBC (3.8-10.6) k/uL RBC (4.30-5.90) m/uL Hgb (13.0-17.5) gm/dL Hct (39.0-53.0) % RDW (11.5-15.5) % Plt Count (150-450) k/uL Neutrophils # (1.3-7.7) k/uL APTT 34.2 H (22.0-30.0) sec Potassium (3.5-5.1) mmol/L BUN (9-20) mg/dL Glucose (74-99) mg/dL POC Glucose (mg/dL) 128 H (70-110) mg/dL Hemoglobin A1c (<=6.0) % Iron (65-175) UG/DL TIBC (228-460) UG/DL Transferrin (204.0-354.0) mg/dL Ferritin (22.0-322.0) ng/mL Troponin I (0.000-0.034) ng/mL HDL Cholesterol (40.00-60.00) mg/dL TSH (0.465-4.680) mIU/L Assessment and Plan Assessment: NSTEMI Layered apical thrombus Triple vessel disease Acute hypoxemic respiratory failure, secondary to CHF exacerbation Lactic acidosis, improved History of coronary artery disease with previous PCI/stent at outside facility Chronic ongoing tobacco dependence, current 1 pack/day smoker with over [id number] history Plan: Cardiac Catheterisation done today Awaiting open heart consult for triple vessel disease Continue nitroglycerin infusion at 5mcg/min Continue heparin infusion per protocol Continue on 2 L nasal cannula Continue with IV furosemide 40 mg every 12 hours Continue aspirin 81 mg daily, atorvastatin 80 mg daily, Entresto 0.5 mg twice daily Continue 0.9 normal saline at 75 mL/h GI prophylaxis: Pantoprazole 40mg IVP daily DVT prophylaxis: Heparin drip Patient will be monitored in the intensive care unit. Critical care time is 35 minutes. Time with Patient: Greater than 30
--- NOTE | 2024-02-19 13:07 | P.CARDCATH ---
Date of Procedure: 02/19/24 Description of Procedure: DIAGNOSTIC CORONARY ANGIOGRAPHY and LEFT HEART CATH REPORT PROCEDURES PERFORMED: Left heart catheterization Selective coronary angiography Moderate conscious sedation 27 mins Right radial access INDICATION: NSTEMI, anterior myocardial infarction, severe ischemic cardiomyopathy 63-year-old with no significant past medical history has not seen any physicians in long time presented to the hospital because of more than 3 to 4 weeks of symptoms of generalized weakness, shortness of breath. On admission he had ECG showing Q waves in anteroseptal leads along with ST changes suggestive of evolving late presenting [place]. His echocardiogram showed an EF of 25 to 30% with apical hypokinesia with apical layered thrombus. He was initially stabilized in the ICU from his congestive heart failure standpoint with IV diuretics and BiPAP and once hemodynamically and respiratory krishnan stable, he was scheduled for heart catheterization today. CONSENT: I have explained the procedural steps of above-mentioned procedures in layman's terms to the patient. I discussed the risks (including but not limited to stroke, emergent vascular or cardiac surgery or ), benefits and alternative therapies for the above-mentioned procedure. I discussed the risks of sedation/analgesia and blood product administration (if indicated). The patient has indicated understanding and acceptance of these risks. Conscious Sedation: Patient's ECG, heart rate, blood pressure, pulse oximetry were monitored throughout the duration of procedure under my direct supervision. 1 mg Versed and 50 mcg Fentanyl were used for induction of moderate conscious sedation. Total duration of moderate concious sedation 57 minutes. PROCEDURE: After explaining the risks, benefits and alternatives of the above mentioned procedures in detail to the patient, informed consent was obtained. Patient was taken to the catheterization lab, prepped and draped in usual sterile fashion using universal precuations. Ultrasound was used to identify the radial artery. 1% lidocaine was infiltrated over the right radial artery. A 6-Dominican sheath was placed and secured in the right radial artery using modified Seldinger technique. The sheath was flushed and 5 mg verapamil was administered intra-arterially. J tipped wire was advanced under fluoroscopic guidance. Once the wire tip reached aortic root 4000 units of IV heparin was given. Over the wire JR4 diagnostic catheter was advanced. The wire in place the ca theter was manipulated to cross the aortic valve and entered into LV under fluoroscopy guidance. The wire was removed and the catheter was flushed. LV pressures were obtained and pullback was performed under fluoroscopy. Catheter was manipulated to selectively engage the right coronary ostium. Right coronary angiography was performed in different angiographic projections. The JR4 diagnostic catheter was exchanged for a JL 3.5 diagnostic catheter over the J-wire. The wire was removed, catheter was flushed and manipulated under fluoroscopy to selectively engaged the left coronary ostium. Left coronary angioplasty was performed in different angiographic projections. Catheter was removed over the wire. Radial sheath was flushed. The right radial sheath was removed and a TR band was placed with excellent patent hemostasis was achieved. The patient tolerated the procedure well. Patient was transported back to the post catheterization holding area in stable condition. Angiographic images were reviewed in detail. HEMODYNAMICS: Aortic Pressure: 100/70 mmHg. LV pressure: 100/10 mmHg. LVEDP 32 mmHg. There was no significant gradient across the aortic valve. SELECTIVE CORONARY ARTERIOGRAPHY: LEFT MAIN: The left main is short and angiographically patent. It bifurcates into the LAD and circumflex. LEFT ANTERIOR DESCENDING CORONARY ARTERY: LAD is a large-caliber vessel. Proximal LAD has mild luminal irregularities. Mid LAD has a focal 50% disease at the bifurcation site of diagonal branch. Distal LAD has 100% thrombotic occlusion with RAN 0 flow. LEFT CIRCUMFLEX CORONARY ARTERY: Nondominant large-caliber vessel. Proximal LCx is patent. Mid LCx has diffuse 30% disease. It gives rise to OM1 branch which has 90% disease in proximal segment. After giving OM1 branch, distal LCx 80% disease in proximal segment. Mid and distal AV groove branch has diffuse 30% disease and distal LAD gives rise to small OM 2 and OM 3 branches. RIGHT CORONARY ARTERY: Dominant vessel. RCA is a large-caliber vessel. It has a diffuse 40% disease involving the proximal mid and distal RCA. Distally bifurcates into PDA and PL branch is a medium size. PL branch is patent. PDA just after its origin bifurcates into a superior and inferior branch. Superior branch has 80 to 90% stenosis in proximal segment. There are no collaterals filling distal LAD retrogradely. IMPRESSION: 100% thrombotic mid-distal LAD stenosis, RAN 0 flow 80% OM1 disease, 80% distal LCx disease 40% diffuse RCA disease, 80 to 90% PDA disease Severe ischemic cardiomyopathy with a EF of 25 to 30% (by echo) with apical hypokinesia along with apical thrombus Elevated LVEDP PLAN: 75 cc/h for 4 hours of normal saline Continue IV Lasix 40 mg twice daily Continue nitroglycerin drip at 5 mcg Resume IV heparin drip 3 hours after the procedure Consult CT surgery to get evaluated. If patient is a high candidate for surgery, would attempt distal LAD thrombectomy and eventual PCI of OM1 and distal LCx. He would also need PCI of superior branch of PDA. Viability of anteroapical wall is questionable as there are no collaterals and ECG shows Q waves in anteroseptal leads suggestive of infarct pattern Continue monitoring the patient in the ICU Overall prognosis is poor. case discussed with Dr Larry, voicemail left for . Performing Physician Avinash Mendoza MD, FACC, RPVI Thank you for allowing [facility] to participate in this patient's care. Feel free to reach out in case of any followup questions.
[2024-02-19 13:42] LABS: African American GFR (CKD) >90 (>60 ml/min/1.73 sqM); Anion Gap 6 mmol/L; Blood Urea Nitrogen 23 mg/dL (9-20); Calcium 8.6 mg/dL (8.4-10.2); Carbon Dioxide 27 mmol/L (22-30); Chloride 106 mmol/L (98-107); Glucose 151 mg/dL (74-99); Non-African American GFR(CKD) >90 (>60 ml/min/1.73 sqM); Potassium 3.2 mmol/L (3.5-5.1); Sodium 139 mmol/L (137-145)
[2024-02-20] MEDS: POTASSIUM BICARBONATE/CIT AC 20 MEQ TABLET.EFF NG-TUBE SCH (02:39)
[2024-02-20 04:51] LABS: Hypochromasia Slight; MCH 28.3 pg (25.0-35.0); MCHC 32.3 g/dL (31.0-37.0); MCV 87.6 fL (80.0-100.0); Mean Platelet Volume 8.4; Platelet Count 535 k/uL (150-450); Poikilocytosis Slight; RBC 3.88 m/uL (4.30-5.90); WBC 10.6 k/uL (3.8-10.6)
[2024-02-20 05:13] LABS: African American GFR (CKD) >90 (>60 ml/min/1.73 sqM); Anion Gap 5 mmol/L; Blood Urea Nitrogen 17 mg/dL (9-20); Calcium 8.7 mg/dL (8.4-10.2); Carbon Dioxide 27 mmol/L (22-30); Chloride 105 mmol/L (98-107); Glucose 129 mg/dL (74-99); Magnesium 1.7 mg/dL (1.6-2.3); Non-African American GFR(CKD) >90 (>60 ml/min/1.73 sqM); Potassium 4.7 mmol/L (3.5-5.1); Sodium 137 mmol/L (137-145)
[2024-02-20] MEDS ORDERED: Magnesium Replacement Protocol 1 EACH MISC MISCELLANE PRN (05:20)
[2024-02-20] MEDS: MAGNESIUM SULFATE-D5W PMX 1 GM in DEXTROSE/WATER 1 100ML.BAG IVPB ONE (05:24)
--- NOTE | 2024-02-20 09:25 | P.PN ---
Subjective Progress Note Date: 02/20/24 Principal diagnosis: Patient is a 63-year-old white male with past medical history significant for coronary artery disease with previous PCI/stent. Patient does not have a current primary care provider. He smokes approximately 1 pack/day, and has over 75-kjem-[id number] history. Patient presented the emergency department yesterday with 24 hours of relatively acute onset shortness of breath associated with nausea and diaphoresis. This occurred while sitting down and watching TV. He does admit to feeling generally unwell and fatigued, over the last week or so. He denies any actual chest pain. He was placed on BiPAP in the emergency department. EKG done on arrival showed some questionable ST segment elevation in the anterior leads. His troponins are elevated at 40, 58 respectively. An echocardiogram was performed in the emergency department, we are awaiting official results. Patient reportedly had a left ventricle thrombus. Patient currently on a heparin drip per protocol. Also, receiving nitroglycerin infusion at 25 mcg/min. Chest x-ray consistent with pulmonary edema. patient was placed on BiPAP in the emergency department, which she continues on with settings 14/6 and FiO2 of 40%. He is still tachypneic. Respiratory rate is in the mid 30s. Tidal volume 450-500. He is receiving Lasix 20 mg twice daily. CBC: WBC count 12.2, hemoglobin 11.2, hematocrit 35.2, platelets 414. CMP: Sodium 140, potassium 4.2, chloride 108, serum bicarb 20, BUN 13, creatinine 0.8, glucose 182. Lactic mildly elevated at 4.2 and down to 2. LFTs unremarkable. NT proBNP significantly elevated at 12,500. COVID-negative. Patient denies any infectious-like symptoms. I am evaluating this patient in the intensive care unit, room 257. He remains on BiPAP he is slightly tachypneic, but fairly comfortable considering. He is able to speak in full sentences and answer most of my questions. No accessory muscle use. SpO2 is reading 97%. He is only voided 1 time since Lasix. Remains tachycardic with a current rate of 112 bpm. Blood pressure 101/82 mmHg. Not currently requiring any vasopressor support. We are awaiting further recommendations from cardiology. Progress note dated February 19, 2024 Patient evaluated in the ICU today. He presented for worsening exertional dyspnea and his troponins up trended from 10 to 40-58 and his echo showed 25 to 30% ejection fraction with apical hypokinesia, layered apical thrombus and a dilated RV. Cardiology recommended to avoid beta-blockers. PROBNP was 12,500. He was diagnosed with non-STEMI and acute hypoxic respiratory failure secondary to CHF exacerbation. He got left heart catheterization done today. 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 Nitroglycerin drip will be restarted at 5 mcg/min and heparin drip will be restarted after 3 hours of cardiac cath. He will also get 0.9 normal saline at 75 mL/h. He is on 2 L nasal cannula saturating at 96%. Labs today show WBC 12, hemoglobin 10.1, platelet 474, sodium 141, potassium 3.3, chloride 106, bicarb 29, BUN 26, creatinine 0.6, glucose 128, APTT 34.0, A1c 6.12, iron 57, TIBC 192, transferrin 137, ferritin 2441, percent saturation 29, last troponin(02/17) is 39. Progress note dated February 20, 2024. Patient seen in the ICU today. He denies any chest pain, shortness of breath. He had a cardiac catheterization done yesterday which showed 20% thrombotic mid distal LAD stenosis, 50% proximal LAD stenosis, 80% left circumflex stenosis and 80 to 90% PDA. He received open not consulted and surgery said to continue aspirin, statin, beta-ruslan, Entresto and diuretics. 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 They also mentioned very high risk with limited benefit from CABG alone, more recommendations will follow. Patient is doing well on room air, saturating at 92%. He continues to be on heparin drip, nitroglycerin at 5 mg/min and 0.9 normal saline at 10 mL/h. Labs show WBC 10, hemoglobin 11, platelet 535, hematocrit 37, sodium 137, potassium 4.7, chloride 105, bicarb 27, BUN 17, creatinine 0.8 129, calcium 8.7, magnesium 1.7, APTT 194. Magnesium has been repleted. Objective - Vital Signs Vital signs: Vital Signs Temp 98.4 F 02/20/24 04:00 Pulse 118 H 02/20/24 07:00 Resp 13 02/20/24 07:00 BP 105/73 02/20/24 07:00 Pulse Ox 94 L 02/20/24 08:42 FiO2 40 02/18/24 07:48 Intake & Output 02/19/24 02/20/24 02/20/24 18:59 06:59 18:59 Intake Total 1040.214 362.312 10 Output Total 1925 1850 0 Balance -884.786 -1487.688 10 Weight 69.4 kg Intake: IV 100 Intake, IV Titration 480.214 362.312 10 Amount Heparin Sod,Pork in 0.45% 94.789 142.312 NaCl 25,000 unit In 0.45 % NaCl 1 250ml.bag @ 12 UNITS/KG/HR 9.798 mls/hr IV .Q24H [facility] Rx#: [id number] Magnesium Sulfate-D5w Pmx 100 1 gm In Dextrose/Water 1 100ml.bag @ 100 mls/hr IVPB ONCE ONE Rx#: [id number] Nitroglycerin-D5w Pmx 50 25.425 mg In Dextrose/Water 1 250ml.bag @ 5 MCG/MIN 1.5 mls/hr IV .Q24H [facility] Rx#: [id number] Sodium Chloride 0.9% 1, 360 120 10 000 ml @ 75 mls/hr IV . [id number] [facility] Rx#:[id number] Oral 460 Output: Urine 1924 1849 0 Other: Voiding Method Urinal # Voids 1 - Exam GENERAL EXAM: Alert, 64-year-old white male, on room air. HEAD: Normocephalic and atraumatic EYES: Normal reaction of pupils, equal size. NOSE: Clear with pink turbinates. THROAT: No erythema or exudates. NECK: No masses, no JVD. CHEST: No chest wall deformity. LUNGS: Equal air entry with bibasilar crackles. No wheezes, rhonchi, focal diminished lung sounds. No conversational dyspnea or accessory muscle use.. CVS: S1 and S2 normal with no audible murmur, regular rhythm. No extra heart sounds ABDOMEN: No hepatosplenomegaly, active bowel sounds, no guarding or rigidity. SPINE: No scoliosis or deformity SKIN: No rashes CENTRAL NERVOUS SYSTEM: No focal deficits, tone is normal in all 4 extremities. EXTREMITIES: No clubbing, or cyanosis. - Labs CBC & Chem 7: 02/20/24 04:21 02/20/24 04:21 Labs: Abnormal Lab Results - Last 24 Hours (Table) 02/19/24 02/19/24 02/20/24 Range/Units 12:57 17:51 00:34 RBC (4.30-5.90) m/uL Hgb (13.0-17.5) gm/dL Hct (39.0-53.0) % RDW (11.5-15.5) % Plt Count (150-450) k/uL APTT 31.6 H 194.0 H* (22.0-30.0) sec Potassium 3.2 L (3.5-5.1) mmol/L BUN 23 H (9-20) mg/dL Glucose 151 H (74-99) mg/dL 02/20/24 02/20/24 02/20/24 Range/Units 00:34 04:21 04:21 RBC 3.88 L (4.30-5.90) m/uL Hgb 11.0 L (13.0-17.5) gm/dL Hct 34.0 L (39.0-53.0) % RDW 16.0 H (11.5-15.5) % Plt Count 535 H (150-450) k/uL APTT (22.0-30.0) sec Potassium 3.3 L (3.5-5.1) mmol/L BUN (9-20) mg/dL Glucose 129 H (74-99) mg/dL Assessment and Plan Assessment: Triple vessel disease as seen on cardiac cath yesterday NSTEMI Layered apical thrombus Acute hypoxemic respiratory failure, secondary to CHF exacerbation Lactic acidosis, improved History of coronary artery disease with previous PCI/stent at outside facility Chronic ongoing tobacco dependence, current 1 pack/day smoker with over [id number]-tnpn-[id number] history Plan: Open heart consult for triple vessel disease Continue nitroglycerin infusion at 5mcg/min Continue heparin infusion per protocol Continue with IV furosemide 40 mg every 12 hours Continue aspirin 81 mg daily, atorvastatin 80 mg daily, Entresto 0.5 mg twice daily Continue 0.9 normal saline at 10 mL/h GI prophylaxis: Pantoprazole 40mg IVP daily DVT prophylaxis: Heparin drip Patient will be monitored in the intensive care unit. Critical care time is 35 minutes. Time with Patient: Greater than 30
[2024-02-20] MEDS: carvediloL 3.125 MG TAB PO SCH (11:16)
--- NOTE | 2024-02-20 12:09 | P.PN ---
Subjective Progress Note Date: 02/20/24 The patient is a 64-year-old male who presented to the hospital with a late presenting myocardial infarction. He underwent coronary angiogram where he was found to have 100% thrombotic mid distal LAD stenosis, 80% OM1 disease, 80% distal left circumflex disease, 40% diffuse RCA disease as well as 80 to 90% PDA disease. CV surgery has consulted and are awaiting recommendations. Patient was interviewed and examined resting comfortably in bed. He currently denies any chest pain or chest pressure. He has no difficulty breathing at rest. GENERAL: Well-appearing, well-nourished and in no acute distress. NECK: Supple without JVD or thyromegaly. LUNGS: Breath sounds clear to auscultation bilaterally. Respiration equal and unlabored. No wheezes, rales or rhonchi. HEART: Regular rate and rhythm without murmurs, rubs or gallops. S1 and S2 heard. EXTREMITIES: Normal range of motion, no edema. No clubbing or cyanosis. Peripheral pulses intact and strong. Right radial site is healed. +2 pulse. TELEMETRY: Sinus tachycardia with heart rates in the low 100s LABS: Hemoglobin 11, hematocrit 34.0, WBC 10.6, sodium 137, potassium 4.7, BUN 17, creatinine 0.82, magnesium 1.7 IMPRESSION: Late presenting myocardial infarction Multivessel coronary artery disease with layered apical thrombus Ischemic cardiomyopathy, EF 25% Anemia Current smoker Former EtOH abuse, abstinent 7 years PLAN: Start low-dose carvedilol Wean off of nitroglycerin if patient becomes hypotensive Awaiting surgical recommendations Further recommendations to be based upon the clinical course I am dictating on behalf of Dr Vasu Kahn's history/physical and assessment/plan. Objective - Vital Signs Vital signs: Vital Signs Temp 98.9 F 02/20/24 08:00 Pulse 112 H 02/20/24 11:00 Resp 18 02/20/24 11:00 BP 110/79 02/20/24 11:00 Pulse Ox 95 02/20/24 11:00 FiO2 40 02/18/24 07:48 Intake & Output 02/19/24 02/20/24 02/20/24 18:59 06:59 18:59 Intake Total 1040.214 362.312 249.443 Output Total 1925 1850 1425 Balance -884.786 -1487.688 -1175.557 Weight 69.4 kg Intake: IV 100 Intake, IV Titration 480.214 362.312 149.443 Amount Heparin Sod,Pork in 0.45% 94.789 142.312 99.443 NaCl 25,000 unit In 0.45 % NaCl 1 250ml.bag @ 12 UNITS/KG/HR 9.798 mls/hr IV .Q24H [facility] Rx#: [id number] Magnesium Sulfate-D5w Pmx 100 1 gm In Dextrose/Water 1 100ml.bag @ 100 mls/hr IVPB ONCE ONE Rx#: [id number] Nitroglycerin-D5w Pmx 50 25.425 mg In Dextrose/Water 1 250ml.bag @ 5 MCG/MIN 1.5 mls/hr IV .Q24H [facility] Rx#: [id number] Sodium Chloride 0.9% 1, 360 120 50 000 ml @ 75 mls/hr IV . [id number] [facility] Rx#:[id number] Oral 460 100 Output: Urine 1925 1850 1425 Other: Voiding Method Urinal Urinal # Voids 1 - Labs CBC & Chem 7: 02/20/24 04:21 02/20/24 04:21 Labs: Abnormal Lab Results - Last 24 Hours (Table) 02/19/24 02/19/24 02/20/24 Range/Units 12:57 17:51 00:34 RBC (4.30-5.90) m/uL Hgb (13.0-17.5) gm/dL Hct (39.0-53.0) % RDW (11.5-15.5) % Plt Count (150-450) k/uL APTT 31.6 H 194.0 H* (22.0-30.0) sec Potassium 3.2 L (3.5-5.1) mmol/L BUN 23 H (9-20) mg/dL Glucose 151 H (74-99) mg/dL 02/20/24 02/20/24 02/20/24 Range/Units 00:34 04:21 04:21 RBC 3.88 L (4.30-5.90) m/uL Hgb 11.0 L (13.0-17.5) gm/dL Hct 34.0 L (39.0-53.0) % RDW 16.0 H (11.5-15.5) % Plt Count 535 H (150-450) k/uL APTT (22.0-30.0) sec Potassium 3.3 L (3.5-5.1) mmol/L BUN (9-20) mg/dL Glucose 129 H (74-99) mg/dL 02/20/24 Range/Units 09:22 RBC (4.30-5.90) m/uL Hgb (13.0-17.5) gm/dL Hct (39.0-53.0) % RDW (11.5-15.5) % Plt Count (150-450) k/uL APTT 35.7 H (22.0-30.0) sec Potassium (3.5-5.1) mmol/L BUN (9-20) mg/dL Glucose (74-99) mg/dL
--- NOTE | 2024-02-20 12:46 | P.PN ---
Subjective Progress Note Date: 02/20/24 Subjective: Patient is a 63-year-old male with hypertension and remote history of CAD status post stent in early came to ED with worsening exertional dyspnea that started 1 week ago. Patient states that he suddenly felt short of breath a week ago while carrying his laundry upstairs from the basement and he had to sit on the stairs for couple of minutes to catch his breath. He denies any associated chest pain or diaphoresis. Since then his shortness of breath has been getting worse. It is worse with physical activities such as walking or climbing stairs and better with rest. He also has been endorsing orthopnea and PND since 1 week. He felt his symptoms were worst today which prompted him to come to the ER. Patient never experienced these symptoms in the past although he states that he had chest pain in early and had a stent put in. Denies any recent hospitalization, upper respiratory tract infection, recent travel. Patient is not on any blood thinners. No history of blood clots. Denies any use of illicit drug except for occasional LSD and marijuana. He otherwise has no other ongoing medical condition. At the time of interview patient is feeling better with BiPAP and pain medication. He continues to deny any active chest pain. Laboratory evaluation in the ER shows WBC 12.2, hemoglobin 11.2, hematocrit 35.2, platelet count 414, PT 13.0, INR 1.2, APTT 20.3, pH 7.26, pCO2 49, bicarb 20, sodium 140, potassium 4.2, chloride 108, BUN 30, creatinine 0.8, glucose 182, Lactic acid 4.2, troponin I 10.600, NT proBNP [id number]: Tmax 97.1, heart rate 120, respiration rate 36, blood pressure 135/89, oxygen saturation 98% on BiPAP with a setting of IPAP 14, EPAP 6, respirate 14, FiO2 50%. Chest x-ray independently interpreted shows diffuse reticular markings bilaterally. EKG independently interpreted shows sinus tachycardia with normal MA interval, normal QRS interval and normal QTc interval. ST elevation noted in V3 with T wave inversion in V4, V5 and V6. Patient is admitted for acute CHF secondary to ACS with elevated troponin levels. Cardiology is consulted. Pulmonology consulted. Patient is transferred to ICU for close monitoring. Patient is currently on nitroglycerin drip and BiPAP. Patient went for cath and will undergo open heart consult for CABG. coronary angiography show 100% thrombotic mid-distal LAD stenosis, RAN 0 flow, 80% OM1 disease, 80% distal LCx disease, 40% diffuse RCA disease, 80 to 90% PDA disease. All Systems reviewed and pertinent positives and negatives noted in HPI, all other symptoms are negative Objective: Patient seen and examined at the bedside. No acute events overnight. No chest pain or Shortness of breath. Vital signs reviewed. Data reviewed today: Labs: WBC 10.6, hemoglobin 11.0, hematocrit 34.0, platelet count 535, sodium 137, potassium 4.7, BUN 7, creatinine 0.82 No new imaging Physical examination: Vital signs reviewed General: non toxic, mild distress, appears at stated age, overweight Derm: no unusual rashes/lesions, warm Head: atraumatic, normocephalic, symmetric Eyes: EOMI, no lid lag, anicteric sclera, pupils equal round reactive to light ENT: Nose and ears atraumatic Neck: No cervical lymphadenopathy, trachea midline, supple Mouth: no lip lesion, mucus membranes moist Cardiovascular: S1S2 reg, no murmur, positive dorsalis pedis pulse bilateral, 1+ pitting edema RLE and 1+ pitting edema LLE Lungs: Decreased breath sounds bilaterally, no rhonchi, no rales, no accessory muscle use Abdominal: soft, nontender to palpation, no guarding Ext: muscle strength 5 out of 5 in all 4 extremities grossly, no gross muscle atrophy, no contractures, Neuro: CN II-XI grossly intact, no gross focal neuro deficits Psych: Alert, oriented, appropriate affect Pertinent Lab work during hospitalization: Troponin I continue to trend upward from 10.6 --> 40--> 58; NT proBNP 19038 Lipid panel shows LDL of 124 Hemoglobin 10.1, MCV 87.7 \Iron 57, TIBC 192, transferrin 137, ferritin 2441 Pertinent Imaging during hospitalization: Chest x-ray shows diffuse reticulo-nodular markings bilaterally EKG in ED shows ST elevation noted in V3 with T wave inversion in V4, V5 and V6 Cardiac catheterization shows multivessel stenosis including 100% mid to distal LAD, 80% OM1, 80% distal LCx, 40% RCA, 80 to 90% PDA; cardiothoracic surgery consulted for open heart surgery awaiting recommendations Echocardiogram shows left ventricular ejection fraction 25 to 30%. Large left ventricular apical thrombus, apical/lateral wall/posterior wall hypokinesis Assessment/Plan: 63-year-old male with past medical history of CAD status post stent and hypertension came to the ER with worsening exertional dyspnea likely has acute congestive heart failure exacerbation secondary to STEMI #Acute systolic congestive heart failure exacerbation secondary to STEMI #Remote history of CAD status post stent #Congestive Hepatopathy #Pericardial Effusion #Severe ischemic cardiomyopathy Anticoagulation with heparin drip, follow PTT for toxicity Lasix 40 mg every 12 hour Atorvastatin 80 mg p.o. daily, aspirin 81 mg p.o. daily Strict I's and O's, daily weights, fluid restriction 1.5 L Cardiology consultation appreciated Heart healthy diet c/w nitroglycerin drip, keep systolic blood pressure less than 120, consider offtitration at this point, defer to cardiology for now Continue cardiac telemetry Continue monitor CBC and BMP Pulmonology consulted Start guideline directed medical therapy for CHF: on entresto 24/26 mg half tablet p.o. twice daily, Coreg 3.125 mg p.o. twice daily, pt likely to be able to tolerate spironolactone and farxiga, consider addition #Hypokalemia, resolved Monitor BMP #Hypertension Not on home medication Management as above #Normocytic anemia secondary to anemia of chronic disease Patient denies active bleeding Continue to monitor CBC Transfusion with PRBC if hemoglobin less than 7 #Subclinical hypothyroidism - outpatient recheck in 6 months Resolved: #Elevated lactic acid secondary to above, resolved #Anion gap metabolic acidosis secondary to lactic acidosis, resolved DVT prophylaxis with heparin drip Code Status: Full code Anticipated discharge place: Pending clinical course Anticipated discharge date: Pending clinical course I saw and evaluated the patient during the yanes and critical portions of this en counter, and discussed the case in detail with the resident author of this note, I agree with the Assessment and Plan, and my changes, if any, are highlighted in blue. Objective - Vital Signs Vital signs: Vital Signs Temp 98.9 F 02/20/24 08:00 Pulse 112 H 02/20/24 11:00 Resp 18 02/20/24 11:00 BP 110/79 02/20/24 11:00 Pulse Ox 95 02/20/24 11:00 FiO2 40 02/18/24 07:48 Intake & Output 02/19/24 02/20/24 02/20/24 18:59 06:59 18:59 Intake Total 1040.214 362.312 259.443 Output Total 1924 1850 1625 Balance -884.786 -1487.688 -1365.557 Weight 69.4 kg Intake: IV 100 Intake, IV Titration 480.214 362.312 159.443 Amount Heparin Sod,Pork in 0.45% 94.789 142.312 99.443 NaCl 25,000 unit In 0.45 % NaCl 1 250ml.bag @ 12 UNITS/KG/HR 9.798 mls/hr IV .Q24H [facility] Rx#: [id number] Magnesium Sulfate-D5w Pmx 100 1 gm In Dextrose/Water 1 100ml.bag @ 100 mls/hr IVPB ONCE ONE Rx#: [id number] Nitroglycerin-D5w Pmx 50 25.425 mg In Dextrose/Water 1 250ml.bag @ 5 MCG/MIN 1.5 mls/hr IV .Q24H [facility] Rx#: [id number] Sodium Chloride 0.9% 1, 360 120 60 000 ml @ 75 mls/hr IV . [id number] [facility] Rx#:[id number] Oral 460 100 Output: Urine 1924 1849 1625 Other: Voiding Method Urinal Urinal # Voids 1 - Labs CBC & Chem 7: 02/20/24 04:21 02/20/24 04:21 Labs: Abnormal Lab Results - Last 24 Hours (Table) 02/19/24 02/19/24 02/20/24 Range/Units 12:57 17:51 00:34 RBC (4.30-5.90) m/uL Hgb (13.0-17.5) gm/dL Hct (39.0-53.0) % RDW (11.5-15.5) % Plt Count (150-450) k/uL APTT 31.6 H 194.0 H* (22.0-30.0) sec Potassium 3.2 L (3.5-5.1) mmol/L BUN 23 H (9-20) mg/dL Glucose 151 H (74-99) mg/dL 02/20/24 02/20/24 02/20/24 Range/Units 00:34 04:21 04:21 RBC 3.88 L (4.30-5.90) m/uL Hgb 11.0 L (13.0-17.5) gm/dL Hct 34.0 L (39.0-53.0) % RDW 16.0 H (11.5-15.5) % Plt Count 535 H (150-450) k/uL APTT (22.0-30.0) sec Potassium 3.3 L (3.5-5.1) mmol/L BUN (9-20) mg/dL Glucose 129 H (74-99) mg/dL 02/20/24 Range/Units 09:22 RBC (4.30-5.90) m/uL Hgb (13.0-17.5) gm/dL Hct (39.0-53.0) % RDW (11.5-15.5) % Plt Count (150-450) k/uL APTT 35.7 H (22.0-30.0) sec Potassium (3.5-5.1) mmol/L BUN (9-20) mg/dL Glucose (74-99) mg/dL
[2024-02-20] MEDS: POTASSIUM CHLORIDE ER 20 MEQ TAB.ER PO SCH (18:06)
[2024-02-21 06:15] LABS: WBC 10.7 k/uL (3.8-10.6)
[2024-02-21 06:16] LABS: Anisocytosis Slight; Basophils % (A) 0 %; Eosinophils # (A) 0.2 k/uL (0-0.7); Eosinophils % (A) 2 %; HCT 33.7 % (39.0-53.0); Hypochromasia Slight; Lymphocytes # (A) 1.3 k/uL (1.0-4.8); Lymphocytes % (A) 12 %; MCH 28.3 pg (25.0-35.0); MCHC 32.7 g/dL (31.0-37.0); MCV 86.6 fL (80.0-100.0); Mean Platelet Volume 8.4; Monocytes # (A) 0.5 k/uL (0-1.0); Monocytes % (A) 5 %; Neutrophils # (A) 8.6 k/uL (1.3-7.7); Neutrophils % (A) 81 %; Platelet Count 520 k/uL (150-450); Poikilocytosis Slight; RBC 3.89 m/uL (4.30-5.90); RDW 16.4 % (11.5-15.5)
[2024-02-21 06:29] LABS: African American GFR (CKD) >90 (>60 ml/min/1.73 sqM); Anion Gap 3 mmol/L; Blood Urea Nitrogen 18 mg/dL (9-20); Calcium 8.9 mg/dL (8.4-10.2); Carbon Dioxide 29 mmol/L (22-30); Chloride 103 mmol/L (98-107); Glucose 124 mg/dL (74-99); Non-African American GFR(CKD) >90 (>60 ml/min/1.73 sqM); Potassium 3.5 mmol/L (3.5-5.1); Sodium 135 mmol/L (137-145)
[2024-02-21] MEDS: POTASSIUM CHLORIDE ER 20 MEQ TAB.ER PO SCH ×2 (06:44→17:44)
--- NOTE | 2024-02-21 10:30 | P.PN ---
Subjective Progress Note Date: 02/21/24 Principal diagnosis: Coronary artery disease. Patient is a 63-year-old white male with past medical history significant for coronary artery disease with previous PCI/stent. Patient does not have a current primary care provider. He smokes approximately 1 pack/day, and has over [id number] history. Patient presented the emergency department yesterday with 24 hours of relatively acute onset shortness of breath associated with nausea and diaphoresis. This occurred while sitting down and watching TV. He does admit to feeling generally unwell and fatigued, over the last week or so. He denies any actual chest pain. He was placed on BiPAP in the emergency department. EKG done on arrival showed some questionable ST segment elevation in the anterior leads. His troponins are elevated at 40, 58 respectively. An echocardiogram was performed in the emergency department, we are awaiting official results. Patient reportedly had a left ventricle thrombus. Patient currently on a heparin drip per protocol. Also, receiving nitroglycerin infusion at 25 mcg/min. Chest x-ray consistent with pulmonary edema. patient was placed on BiPAP in the emergency department, which she continues on with settings 14/6 and FiO2 of 40%. He is still tachypneic. Respiratory rate is in the mid 30s. Tidal volume 450-500. He is receiving Lasix 20 mg twice daily. CBC: WBC count 12.2, hemoglobin 11.2, hematocrit 35.2, platelets 414. CMP: Sodium 140, potassium 4.2, chloride 108, serum bicarb 20, BUN 13, creatinine 0.8, glucose 182. Lactic mildly elevated at 4.2 and down to 2. LFTs unremarkable. NT proBNP significantly elevated at 12,500. COVID-negative. Patient denies any infectious-like symptoms. I am evaluating this patient in the intensive care unit, room 257. He remains on BiPAP he is slightly tachypneic, but fairly comfortable considering. He is able to speak in full sentences and answer most of my questions. No accessory muscle use. SpO2 is reading 97%. He is only voided 1 time since Lasix. Remains tachycardic with a current rate of 112 bpm. Blood pressure 101/82 mmHg. Not currently requiring any vasopressor support. We are awaiting further recommendations from cardiology. Progress note dated February 19, 2024 Patient evaluated in the ICU today. He presented for worsening exertional dyspnea and his troponins up trended from 10 to 40-58 and his echo showed 25 to 30% ejection fraction with apical hypokinesia, layered apical thrombus and a di lated RV. Cardiology recommended to avoid beta-blockers. PROBNP was 12,500. He was diagnosed with non-STEMI and acute hypoxic respiratory failure secondary to CHF exacerbation. He got left heart catheterization done today. 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 Nitroglycerin drip will be restarted at 5 mcg/min and heparin drip will be restarted after 3 hours of cardiac cath. He will also get 0.9 normal saline at 75 mL/h. He is on 2 L nasal cannula saturating at 96%. Labs today show WBC 12, hemoglobin 10.1, platelet 474, sodium 141, potassium 3.3, chloride 106, bicarb 29, BUN 26, creatinine 0.6, glucose 128, APTT 34.0, A1c 6.12, iron 57, TIBC 192, transferrin 137, ferritin 2441, percent saturation 29, last troponin(02/17) is 39. Progress note dated February 20, 2024. Patient seen in the ICU today. He denies any chest pain, shortness of breath. He had a cardiac catheterization done yesterday which showed 20% thrombotic mid distal LAD stenosis, 50% proximal LAD stenosis, 80% left circumflex stenosis and 80 to 90% PDA. He received open not consulted and surgery said to continue aspirin, statin, beta-ruslan, Entresto and diuretics. 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 They also mentioned very high risk with limited benefit from CABG alone, more recommendations will follow. Patient is doing well on room air, saturating at 92%. He continues to be on heparin drip, nitroglycerin at 5 mg/min and 0.9 normal saline at 10 mL/h. Labs show WBC 10, hemoglobin 11, platelet 535, hematocrit 37, sodium 137, potassium 4.7, chloride 105, bicarb 27, BUN 17, creatinine 0.8 129, calcium 8.7, magnesium 1.7, APTT 194. Magnesium has been repleted. Progress note dated February 21, 2024. 64-year-old male seen in room 257. The patient continues on IV heparin. He is on saline at 10 cc an hour. He is not receiving any supplemental oxygen. Apparently according to the nurse, there is no plans for surgery on this patient. Apparently cardiothoracic surgery feels the patient is too high risk. The patient had an uneventful night according to the nurse. Current labs include a white count 10.7, hemoglobin 11, hematocrit 33.7, platelet count 521,000. PTT is 41.0. Sodium 135, potassium 3.5, chlorides 103, CO2 29, BUN 18, creatinine 0.82. Objective - Vital Signs Vital signs: Vital Signs Temp 99.9 F H 02/21/24 08:00 Pulse 98 02/21/24 09:00 Resp 0 L 02/21/24 09:00 BP 87/55 02/21/24 09:00 Pulse Ox 94 L 02/21/24 09:00 FiO2 40 02/18/24 07:48 Intake & Output 02/20/24 02/21/24 02/21/24 18:59 06:59 18:59 Intake Total 559.443 262.334 364.726 Output Total 1825 1125 525 Balance -1265.557 -862.666 -160.274 Weight 66.9 kg Intake: IV 30 120 30 NS 30 120 30 Intake, IV Titration 189.443 142.334 214.726 Amount Heparin Sod,Pork in 0.45% 99.443 142.334 214.726 NaCl 25,000 unit In 0.45 % NaCl 1 250ml.bag @ 12 UNITS/KG/HR 9.798 mls/hr IV .Q24H RICK Rx#: [id number] Sodium Chloride 0.9% 1, 90 000 ml @ 75 mls/hr IV . [id number] RICK Rx#:[id number] Oral 340 120 Output: Urine 1825 1125 525 Other: Voiding Method Urinal Urinal Urinal # Voids 0 - Exam No acute distress, oriented 3. Currently on room air. HEENT examination is grossly unremarkable. Mucous membranes are moist. No oral lesions. Neck supple. Full range of motion. No adenopathy thyromegaly or neck vein distention. Cardiovascular examination reveals regular rhythm rate. S1-S2 normal. No S3 or S4. No discernible murmur noted. Heart rate 98 bpm. Heart sounds are distant. Lungs reveal clear breath sounds. Breath sounds are equal bilaterally. No adventitious lung sounds including wheezes rhonchi or crackles. Room air saturation is 96%. Abdomen soft bowel sounds are heard. No masses or tenderness. Extremities are intact. No cyanosis clubbing or edema. Skin is without rash or lesion. Neurologic examination is brief but nonfocal. - Labs CBC & Chem 7: 02/21/24 05:55 02/21/24 05:55 Labs: Abnormal Lab Results - Last 24 Hours (Table) 02/20/24 02/21/24 02/21/24 Range/Units 16:32 05:55 05:55 WBC 10.7 H (3.8-10.6) k/uL RBC 3.89 L (4.30-5.90) m/uL Hgb 11.0 L (13.0-17.5) gm/dL Hct 33.7 L (39.0-53.0) % RDW 16.4 H (11.5-15.5) % Plt Count 520 H (150-450) k/uL Neutrophils # 8.6 H (1.3-7.7) k/uL APTT 47.2 H 41.0 H (22.0-30.0) sec Sodium (137-145) mmol/L Glucose (74-99) mg/dL 02/21/24 Range/Units 05:55 WBC (3.8-10.6) k/uL RBC (4.30-5.90) m/uL Hgb (13.0-17.5) gm/dL Hct (39.0-53.0) % RDW (11.5-15.5) % Plt Count (150-450) k/uL Neutrophils # (1.3-7.7) k/uL APTT (22.0-30.0) sec Sodium 135 L (137-145) mmol/L Glucose 124 H (74-99) mg/dL Assessment and Plan Assessment: Triple-vessel coronary artery disease. Non-ST segment elevation myocardial infarction. Layered apical thrombus. Acute hypoxemic respiratory failure secondary to CHF. Lactic acidosis, recovered. History of CAD, with previous PCI/stent. Chronic and ongoing tobacco dependence. Plan: Plan dated February 21, 2024. The patient is seen in the intensive care unit, room 257. He is on no supplemental oxygen. He is getting saline at 10 cc an hour. He is on IV heparin. According to the nurse, there is no plans for surgery on this patient. The patient is receiving appropriate medications. We will continue to monitor. Prognosis is guarded. Time with Patient: Less than 30
--- NOTE | 2024-02-21 11:40 | P.PN ---
Subjective Progress Note Date: 02/21/24 Subjective: Patient is a 63-year-old male with hypertension and remote history of CAD status post stent in early came to ED with worsening exertional dyspnea that started 1 week ago. Patient states that he suddenly felt short of breath a week ago while carrying his laundry upstairs from the basement and he had to sit on the stairs for couple of minutes to catch his breath. He denies any associated chest pain or diaphoresis. Since then his shortness of breath has been getting worse. It is worse with physical activities such as walking or climbing stairs and better with rest. He also has been endorsing orthopnea and PND since 1 week. He felt his symptoms were worst today which prompted him to come to the ER. Patient never experienced these symptoms in the past although he states that he had chest pain in early and had a stent put in. Denies any recent hospitalization, upper respiratory tract infection, recent travel. Patient is not on any blood thinners. No history of blood clots. Denies any use of illicit drug except for occasional LSD and marijuana. He otherwise has no other ongoing medical condition. At the time of interview patient is feeling better with BiPAP and pain medication. He continues to deny any active chest pain. Laboratory evaluation in the ER shows WBC 12.2, hemoglobin 11.2, hematocrit 35.2, platelet count 414, PT 13.0, INR 1.2, APTT 20.3, pH 7.26, pCO2 49, bicarb 20, sodium 140, potassium 4.2, chloride 108, BUN 30, creatinine 0.8, glucose 182, Lactic acid 4.2, troponin I 10.600, NT proBNP [id number]: Tmax 97.1, heart rate 120, respiration rate 36, blood pressure 135/89, oxygen saturation 98% on BiPAP with a setting of IPAP 14, EPAP 6, respirate 14, FiO2 50%. Chest x-ray independently interpreted shows diffuse reticular markings bilaterally. EKG independently interpreted shows sinus tachycardia with normal CT interval, normal QRS interval and normal QTc interval. ST elevation noted in V3 with T wave inversion in V4, V5 and V6. Patient is admitted for acute CHF secondary to ACS with elevated troponin levels. Cardiology is consulted. Pulmonology consulted. Patient is transferred to ICU for close monitoring. Patient is currently on nitroglycerin drip and BiPAP. Patient went for cath and will undergo open heart consult for CABG. coronary angiography show 100% thrombotic mid-distal LAD stenosis, RAN 0 flow, 80% OM1 disease, 80% distal LCx disease, 40% diffuse RCA disease, 80 to 90% PDA disease. All Systems reviewed and pertinent positives and negatives noted in HPI, all other symptoms are negative Objective: Patient seen and examined at the bedside. No acute events overnight. No chest pain or Shortness of breath. Vital signs reviewed. Data reviewed today: Labs: WBC 10.6, hemoglobin 11.0, hematocrit 34.0, platelet count 535, sodium 137, potassium 4.7, BUN 7, creatinine 0.82 No new imaging Physical examination: Vital signs reviewed General: non toxic, mild distress, appears at stated age, overweight Derm: no unusual rashes/lesions, warm Head: atraumatic, normocephalic, symmetric Eyes: EOMI, no lid lag, anicteric sclera, pupils equal round reactive to light ENT: Nose and ears atraumatic Neck: No cervical lymphadenopathy, trachea midline, supple Mouth: no lip lesion, mucus membranes moist Cardiovascular: S1S2 reg, no murmur, positive dorsalis pedis pulse bilateral, 1+ pitting edema RLE and 1+ pitting edema LLE Lungs: Decreased breath sounds bilaterally, no rhonchi, no rales, no accessory muscle use Abdominal: soft, nontender to palpation, no guarding Ext: muscle strength 5 out of 5 in all 4 extremities grossly, no gross muscle atrophy, no contractures, Neuro: CN II-XI grossly intact, no gross focal neuro deficits Psych: Alert, oriented, appropriate affect Pertinent Lab work during hospitalization: Troponin I continue to trend upward from 10.6 --> 40--> 58; NT proBNP 64099 Lipid panel shows LDL of 124 Hemoglobin 10.1, MCV 87.7 \Iron 57, TIBC 192, transferrin 137, ferritin 2441 Pertinent Imaging during hospitalization: Chest x-ray shows diffuse reticulo-nodular markings bilaterally EKG in ED shows ST elevation noted in V3 with T wave inversion in V4, V5 and V6 Cardiac catheterization shows multivessel stenosis including 100% mid to distal LAD, 80% OM1, 80% distal LCx, 40% RCA, 80 to 90% PDA; cardiothoracic surgery consulted for open heart surgery awaiting recommendations Echocardiogram shows left ventricular ejection fraction 25 to 30%. Large left ventricular apical thrombus, apical/lateral wall/posterior wall hypokinesis Assessment/Plan: 63-year-old male with past medical history of CAD status post stent and hypertension came to the ER with worsening exertional dyspnea likely has acute congestive heart failure exacerbation secondary to STEMI #Acute systolic congestive heart failure exacerbation secondary to STEMI #Remote history of CAD status post stent #Congestive Hepatopathy #Pericardial Effusion #Severe ischemic cardiomyopathy Anticoagulation with heparin drip, follow PTT for toxicity Lasix 40 mg every 12 hour Atorvastatin 80 mg p.o. daily, aspirin 81 mg p.o. daily Strict I's and O's, daily weights, fluid restriction 1.5 L Cardiology consultation appreciated Heart healthy diet c/w nitroglycerin drip, keep systolic blood pressure less than 120, consider of ftitration at this point, defer to cardiology for now Continue cardiac telemetry Continue monitor CBC and BMP Pulmonology consulted Start guideline directed medical therapy for CHF: on entresto 24/26 mg half tablet p.o. twice daily, Coreg 3.125 mg p.o. twice daily, pt likely to be able to tolerate spironolactone and farxiga, consider addition #Hypokalemia, resolved Monitor BMP #Hypertension Not on home medication Management as above #Normocytic anemia secondary to anemia of chronic disease Patient denies active bleeding Continue to monitor CBC Transfusion with PRBC if hemoglobin less than 7 #Subclinical hypothyroidism - outpatient recheck in 6 months Resolved: #Elevated lactic acid secondary to above, resolved #Anion gap metabolic acidosis secondary to lactic acidosis, resolved DVT prophylaxis with heparin drip Code Status: Full code Anticipated discharge place: Pending clinical course Anticipated discharge date: Pending clinical course Objective - Vital Signs Vital signs: Vital Signs Temp 99.9 F H 02/21/24 08:00 Pulse 99 02/21/24 11:00 Resp 20 02/21/24 11:00 BP 102/74 02/21/24 11:00 Pulse Ox 93 L 02/21/24 11:00 FiO2 40 02/18/24 07:48 Intake & Output 02/20/24 02/21/24 02/21/24 18:59 06:59 18:59 Intake Total 559.443 262.334 420.000 Output Total 7425 1125 900 Balance -1265.557 -862.666 -480.000 Weight 66.9 kg Intake: IV 30 120 50 NS 30 120 50 Intake, IV Titration 189.443 142.334 250.000 Amount Heparin Sod,Pork in 0.45% 99.443 142.334 250.000 NaCl 25,000 unit In 0.45 % NaCl 1 250ml.bag @ 12 UNITS/KG/HR 9.798 mls/hr IV .Q24H RICK Rx#: [id number] Sodium Chloride 0.9% 1, 90 000 ml @ 75 mls/hr IV . [id number] RICK Rx#:[id number] Oral 340 120 Output: Urine 1825 1125 900 Other: Voiding Method Urinal Urinal Urinal # Voids 0 - Labs CBC & Chem 7: 02/21/24 05:55 02/21/24 05:55 Labs: Abnormal Lab Results - Last 24 Hours (Table) 02/20/24 02/21/24 02/21/24 Range/Units 16:32 05:55 05:55 WBC 10.7 H (3.8-10.6) k/uL RBC 3.89 L (4.30-5.90) m/uL Hgb 11.0 L (13.0-17.5) gm/dL Hct 33.7 L (39.0-53.0) % RDW 16.4 H (11.5-15.5) % Plt Count 520 H (150-450) k/uL Neutrophils # 8.6 H (1.3-7.7) k/uL APTT 47.2 H 41.0 H (22.0-30.0) sec Sodium (137-145) mmol/L Glucose (74-99) mg/dL 02/21/24 Range/Units 05:55 WBC (3.8-10.6) k/uL RBC (4.30-5.90) m/uL Hgb (13.0-17.5) gm/dL Hct (39.0-53.0) % RDW (11.5-15.5) % Plt Count (150-450) k/uL Neutrophils # (1.3-7.7) k/uL APTT (22.0-30.0) sec Sodium 135 L (137-145) mmol/L Glucose 124 H (74-99) mg/dL
--- NOTE | 2024-02-21 11:44 | P.PN ---
Subjective Progress Note Date: 02/21/24 The patient is a 64-year-old male who presented to the hospital with a late presenting myocardial infarction. He underwent coronary angiogram where he was found to have 100% thrombotic mid distal LAD stenosis, 80% OM1 disease, 80% distal left circumflex disease, 40% diffuse RCA disease as well as 80 to 90% PDA disease. CV surgery has consulted and is deemed too high risk for surgery. Nitroglycerin drip was weaned off yesterday evening. Patient was interviewed and examined resting comfortably in bed. He currently denies any chest pain or chest pressure. He has no difficulty breathing at rest. He has done well over the last 24 hours. GENERAL: Well-appearing, well-nourished and in no acute distress. NECK: Supple without JVD or thyromegaly. LUNGS: Breath sounds clear to auscultation bilaterally. Respiration equal and unlabored. No wheezes, rales or rhonchi. HEART: Regular rate and rhythm without murmurs, rubs or gallops. S1 and S2 heard. EXTREMITIES: Normal range of motion, no edema. No clubbing or cyanosis. Peripheral pulses intact and strong. TELEMETRY: Sinus tachycardia with heart rates in the 90s to low 100s LABS: WBC 10.7, hemoglobin 11.0, hematocrit 33.7, platelet 520, sodium 135, potassium 3.5, BUN 18, creatinine 0.82 IMPRESSION: Late presenting myocardial infarction Multivessel coronary artery disease with layered apical thrombus Ischemic cardiomyopathy, EF 25% Anemia Current smoker Former EtOH abuse, abstinent 7 years PLAN: Continue carvedilol and Entresto Discontinue IV Lasix and start spironolactone 25 mg daily Decision regarding coronary intervention to be discussed tomorrow I am dictating on behalf of Dr Vasu Kahn's history/physical and assessment/pl an. Objective - Vital Signs Vital signs: Vital Signs Temp 99.9 F H 02/21/24 08:00 Pulse 99 02/21/24 11:00 Resp 20 02/21/24 11:00 BP 102/74 02/21/24 11:00 Pulse Ox 93 L 02/21/24 11:00 FiO2 40 02/18/24 07:48 Intake & Output 02/20/24 02/21/24 02/21/24 18:59 06:59 18:59 Intake Total 559.443 262.334 420.000 Output Total 1825 1125 900 Balance -1265.557 -862.666 -480.000 Weight 66.9 kg Intake: IV 30 120 50 NS 30 120 50 Intake, IV Titration 189.443 142.334 250.000 Amount Heparin Sod,Pork in 0.45% 99.443 142.334 250.000 NaCl 25,000 unit In 0.45 % NaCl 1 250ml.bag @ 12 UNITS/KG/HR 9.798 mls/hr IV .Q24H RICK Rx#: [id number] Sodium Chloride 0.9% 1, 90 000 ml @ 75 mls/hr IV . [id number] RICK Rx#:[id number] Oral 340 120 Output: Urine 1827 1125 900 Other: Voiding Method Urinal Urinal Urinal # Voids 0 - Labs CBC & Chem 7: 02/21/24 05:55 02/21/24 05:55 Labs: Abnormal Lab Results - Last 24 Hours (Table) 02/20/24 02/21/24 02/21/24 Range/Units 16:32 05:55 05:55 WBC 10.7 H (3.8-10.6) k/uL RBC 3.89 L (4.30-5.90) m/uL Hgb 11.0 L (13.0-17.5) gm/dL Hct 33.7 L (39.0-53.0) % RDW 16.4 H (11.5-15.5) % Plt Count 520 H (150-450) k/uL Neutrophils # 8.6 H (1.3-7.7) k/uL APTT 47.2 H 41.0 H (22.0-30.0) sec Sodium (137-145) mmol/L Glucose (74-99) mg/dL 02/21/24 Range/Units 05:55 WBC (3.8-10.6) k/uL RBC (4.30-5.90) m/uL Hgb (13.0-17.5) gm/dL Hct (39.0-53.0) % RDW (11.5-15.5) % Plt Count (150-450) k/uL Neutrophils # (1.3-7.7) k/uL APTT (22.0-30.0) sec Sodium 135 L (137-145) mmol/L Glucose 124 H (74-99) mg/dL
[2024-02-21] MEDS: SODIUM CHLORIDE 0.9% 500 ML 500 ML IV SCH (14:16)
[2024-02-22 06:12] LABS: Anisocytosis Slight; Basophils % (A) 0 %; Eosinophils # (A) 0.1 k/uL (0-0.7); Eosinophils % (A) 0 %; HGB 11.1 gm/dL (13.0-17.5); Hypochromasia Slight; Lymphocytes % (A) 9 %; MCH 28.5 pg (25.0-35.0); MCHC 32.5 g/dL (31.0-37.0); MCV 87.6 fL (80.0-100.0); Monocytes # (A) 0.6 k/uL (0-1.0); Monocytes % (A) 5 %; Neutrophils # (A) 9.6 k/uL (1.3-7.7); Neutrophils % (A) 85 %; Platelet Count 506 k/uL (150-450); Poikilocytosis Slight; RBC 3.89 m/uL (4.30-5.90); RDW 16.4 % (11.5-15.5); WBC 11.4 k/uL (3.8-10.6)
[2024-02-22 06:35] LABS: African American GFR (CKD) >90 (>60 ml/min/1.73 sqM); Anion Gap 2 mmol/L; Blood Urea Nitrogen 19 mg/dL (9-20); Calcium 9.1 mg/dL (8.4-10.2); Carbon Dioxide 29 mmol/L (22-30); Chloride 104 mmol/L (98-107); Glucose 116 mg/dL (74-99); Magnesium 1.9 mg/dL (1.6-2.3); Non-African American GFR(CKD) 84 (>60 ml/min/1.73 sqM); Potassium 4.1 mmol/L (3.5-5.1); Sodium 135 mmol/L (137-145)
--- NOTE | 2024-02-22 07:57 | P.PN ---
Subjective Progress Note Date: 02/22/24 PROGRESS NOTE The patient is a 64-year-old male who presented with history of progressive dyspnea and was found to have QS pattern anteriorly and evidence of myocardial infarction with anteroapical akinesis with apical thrombus. He has a prior history of alcohol intake which he stopped 7 years ago. History of chronic tobacco use and marijuana use. He underwent cardiac catheterization by Dr. Mendoza and was found to have occluded mid LAD with obstructive disease in the OM and left circumflex. He was seen by the surgical team and was not felt to be a surgical candidate. He is feeling well this morning, denies any chest discomfort, dizziness or palpitations. He is in sinus mechanism, ambulating wi thout difficulties. He is hemodynamically stable on no vasopressors. Medications: Aspirin, Lipitor 80 mg daily, carvedilol 3.125 mg twice a day, Entresto 24// tablet twice a day, IV heparin, spironolactone 25 mg daily PHYSICAL EXAMINATION: Blood pressure 114/70 heart rate 100 LUNGS: Clear to auscultation HEART: Regular rate and rhythm, S1, S2. No S3. No systolic murmur ABDOMEN: Soft, nontender, no organomegaly EXTREMETIES: No edema LAB: BUN 19, creatinine 0.97, hemoglobin 11.1 IMPRESSION: 1. Status post anterior myocardial infarction with apical thrombus 2. Occluded mid LAD and significant disease in the OM and left circumflex 3. History of chronic tobacco use 4. History of marijuana use PLAN: 1. Change carvedilol to metoprolol succinate because of low blood pressure 2. Continue IV heparin for now 3. Increase physical activity 4. I will review his images for possible percutaneous revascularization of the left circumflex in the next 24 to 48 hours. Objective - Vital Signs Vital signs: Vital Signs Temp 98.1 F 02/22/24 03:31 Pulse 103 H 02/22/24 03:31 Resp 16 02/21/24 19:58 BP 114/73 02/22/24 03:31 Pulse Ox 96 02/22/24 03:31 FiO2 40 02/18/24 07:48 Intake & Output 02/21/24 02/22/24 02/22/24 18:59 06:59 18:59 Intake Total 730.000 226.92 Output Total 1025 600 Balance -295.000 -373.08 Weight 66.1 kg Intake: IV 60 NS 60 Intake, IV Titration 310.000 226.92 Amount Heparin Sod,Pork in 0.45% 250.000 226.92 NaCl 25,000 unit In 0.45 % NaCl 1 250ml.bag @ 12 UNITS/KG/HR 9.798 mls/hr IV .Q24H RICK Rx#: [id number] Sodium Chloride 0.9% 500 60 ml 500 ml @ 10 mls/hr IV .Q24H RICK Rx#:[id number] Oral 360 Output: Urine 1025 600 Other: Voiding Method Urinal Urinal # Voids 1 1 # Bowel Movements 1 - Labs CBC & Chem 7: 02/22/24 05:44 02/22/24 05:44 Labs: Abnormal Lab Results - Last 24 Hours (Table) 02/21/24 02/22/24 02/22/24 Range/Units 16:15 05:44 05:44 WBC 11.4 H (3.8-10.6) k/uL RBC 3.89 L (4.30-5.90) m/uL Hgb 11.1 L (13.0-17.5) gm/dL Hct 34.0 L (39.0-53.0) % RDW 16.4 H (11.5-15.5) % Plt Count 506 H (150-450) k/uL Neutrophils # 9.6 H (1.3-7.7) k/uL APTT 43.9 H (22.0-30.0) sec Sodium 135 L (137-145) mmol/L Glucose 116 H (74-99) mg/dL 02/22/24 Range/Units 05:44 WBC (3.8-10.6) k/uL RBC (4.30-5.90) m/uL Hgb (13.0-17.5) gm/dL Hct (39.0-53.0) % RDW (11.5-15.5) % Plt Count (150-450) k/uL Neutrophils # (1.3-7.7) k/uL APTT 49.7 H (22.0-30.0) sec Sodium (137-145) mmol/L Glucose (74-99) mg/dL
[2024-02-22] MEDS: METOPROLOL SUCCINATE (ER) 25 MG TAB.ER.24H PO SCH (10:02)
[2024-02-22] MEDS: SPIRONOLACTONE 25 MG TAB PO SCH (10:03)
--- NOTE | 2024-02-22 11:11 | P.PN ---
Subjective Progress Note Date: 02/22/24 Coronary artery disease. Patient is a 63-year-old white male with past medical history significant for co ronary artery disease with previous PCI/stent. Patient does not have a current primary care provider. He smokes approximately 1 pack/day, and has over 36-weko-aara history. Patient presented the emergency department yesterday with 24 hours of relatively acute onset shortness of breath associated with nausea and diaphoresis. This occurred while sitting down and watching TV. He does admit to feeling generally unwell and fatigued, over the last week or so. He denies any actual chest pain. He was placed on BiPAP in the emergency department. EKG done on arrival showed some questionable ST segment elevation in the anterior leads. His troponins are elevated at 40, 58 respectively. An echocardiogram was performed in the emergency department, we are awaiting official results. Patient reportedly had a left ventricle thrombus. Patient currently on a heparin drip per protocol. Also, receiving nitroglycerin infusion at 25 mcg/min. Chest x-ray consistent with pulmonary edema. patient was placed on BiPAP in the emergency department, which she continues on with settings 14/6 and FiO2 of 40%. He is still tachypneic. Respiratory rate is in the mid 30s. Tidal volume 450-500. He is receiving Lasix 20 mg twice daily. CBC: WBC count 12.2, hemoglobin 11.2, hematocrit 35.2, platelets 414. CMP: Sodium 140, potassium 4.2, chloride 108, serum bicarb 20, BUN 13, creatinine 0.8, glucose 182. Lactic mildly elevated at 4.2 and down to 2. LFTs unremarkable. NT proBNP significantly elevated at 12,500. COVID-negative. Patient denies any infectious-like symptoms. I am evaluating this patient in the intensive care unit, room 257. He remains on BiPAP he is slightly tachypneic, but fairly comfortable considering. He is able to speak in full sentences and answer most of my questions. No accessory muscle use. SpO2 is reading 97%. He is only voided 1 time since Lasix. Remains tachycardic with a current rate of 112 bpm. Blood pressure 101/82 mmHg. Not currently requiring any vasopressor support. We are awaiting further recommendations from cardiology. Progress note dated February 19, 2024 Patient evaluated in the ICU today. He presented for worsening exertional dyspnea and his troponins up trended from 10 to 40-58 and his echo showed 25 to 30% ejection fraction with apical hypokinesia, layered apical thrombus and a dilated RV. Cardiology recommended to avoid beta-blockers. PROBNP was 12,500. He was diagnosed with non-STEMI and acute hypoxic respiratory failure secondary to CHF exacerbation. He got left heart catheterization done today. 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 Nitroglycerin drip will be restarted at 5 mcg/min and heparin drip will be restarted after 3 hours of cardiac cath. He will also get 0.9 normal saline at 75 mL/h. He is on 2 L nasal cannula saturating at 96%. Labs today show WBC 12, hemoglobin 10.1, platelet 474, sodium 141, potassium 3.3, chloride 106, bicarb 29, BUN 26, creatinine 0.6, glucose 128, APTT 34.0, A1c 6.12, iron 57, TIBC 192, transferrin 137, ferritin 2441, percent saturation 29, last troponin(02/17) is 39. Progress note dated February 20, 2024. Patient seen in the ICU today. He denies any chest pain, shortness of breath. He had a cardiac catheterization done yesterday which showed 20% thrombotic mid distal LAD stenosis, 50% proximal LAD stenosis, 80% left circumflex stenosis and 80 to 90% PDA. He received open not consulted and surgery said to continue aspirin, statin, beta-ruslan, Entresto and diuretics. 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 They also mentioned very high risk with limited benefit from CABG alone, more recommen dations will follow. Patient is doing well on room air, saturating at 92%. He continues to be on heparin drip, nitroglycerin at 5 mg/min and 0.9 normal saline at 10 mL/h. Labs show WBC 10, hemoglobin 11, platelet 535, hematocrit 37, sodium 137, potassium 4.7, chloride 105, bicarb 27, BUN 17, creatinine 0.8 129, calcium 8.7, magnesium 1.7, APTT 194. Magnesium has been repleted. Progress note dated February 21, 2024. 64-year-old male seen in room 257. The patient continues on IV heparin. He is on saline at 10 cc an hour. He is not receiving any supplemental oxygen. Apparently according to the nurse, there is no plans for surgery on this patient. Apparently cardiothoracic surgery feels the patient is too high risk. The patient had an uneventful night according to the nurse. Current labs include a white count 10.7, hemoglobin 11, hematocrit 33.7, platelet count 521,000. PTT is 41.0. Sodium 135, potassium 3.5, chlorides 103, CO2 29, BUN 18, creatinine 0.82. Progress note dated February 22, 2024. 64-year-old male seen in room 257. The patient continues on IV heparin. He is on saline at 10 cc an hour. He is not receiving any supplemental oxygen. Apparently according to the nurse, there is no plans for surgery on this patient. Apparently cardiothoracic surgery feels the patient is too high risk. Patient will be evaluated by cardiology for possible PCI of the LCx in 24 to 48 hrs. The patient had an uneventful night according to the nurse. Current labs include a white count 11.4, hemoglobin 11.1, hematocrit 34.0, platelet count 506,000. PTT is 49.7. Sodium 135, potassium 4.1, chlorides 104, CO2 29, BUN 19, creatinine 0.97. Objective - Vital Signs Vital signs: Vital Signs Temp 98.1 F 02/22/24 03:31 Pulse 103 H 02/22/24 03:31 Resp 16 02/21/24 19:58 BP 114/73 02/22/24 03:31 Pulse Ox 96 02/22/24 03:31 FiO2 40 02/18/24 07:48 Intake & Output 02/21/24 02/22/24 02/22/24 18:59 06:59 18:59 Intake Total 730.000 226.92 Output Total 1025 600 Balance -295.000 -373.08 Weight 66.1 kg Intake: IV 60 NS 60 Intake, IV Titration 310.000 226.92 Amount Heparin Sod,Pork in 0.45% 250.000 226.92 NaCl 25,000 unit In 0.45 % NaCl 1 250ml.bag @ 12 UNITS/KG/HR 9.798 mls/hr IV .Q24H RICK Rx#: [id number] Sodium Chloride 0.9% 500 60 ml 500 ml @ 10 mls/hr IV .Q24H RICK Rx#:[id number] Oral 360 Output: Urine 1025 600 Other: Voiding Method Urinal Urinal # Voids 1 1 # Bowel Movements 1 - Exam No acute distress, oriented 3. Currently on room air. HEENT examination is grossly unremarkable. Mucous membranes are moist. No oral lesions. Neck supple. Full range of motion. No adenopathy thyromegaly or neck vein distention. Cardiovascular examination reveals regular rhythm rate. S1-S2 normal. No S3 or S4. No discernible murmur noted. Heart rate 103 bpm. Heart sounds are distant. Lungs reveal clear breath sounds. Breath sounds are equal bilaterally. No adventitious lung sounds including wheezes rhonchi or crackles. Room air saturation is 96%. Abdomen soft bowel sounds are heard. No masses or tenderness. Extremities are intact. No cyanosis clubbing or edema. Skin is without rash or lesion. Neurologic examination is brief but nonfocal. - Labs CBC & Chem 7: 02/22/24 05:44 02/22/24 05:44 Labs: Abnormal Lab Results - Last 24 Hours (Table) 02/21/24 02/22/24 02/22/24 Range/Units 16:15 05:44 05:44 WBC 11.4 H (3.8-10.6) k/uL RBC 3.89 L (4.30-5.90) m/uL Hgb 11.1 L (13.0-17.5) gm/dL Hct 34.0 L (39.0-53.0) % RDW 16.4 H (11.5-15.5) % Plt Count 506 H (150-450) k/uL Neutrophils # 9.6 H (1.3-7.7) k/uL APTT 43.9 H (22.0-30.0) sec Sodium 135 L (137-145) mmol/L Glucose 116 H (74-99) mg/dL 02/22/24 Range/Units 05:44 WBC (3.8-10.6) k/uL RBC (4.30-5.90) m/uL Hgb (13.0-17.5) gm/dL Hct (39.0-53.0) % RDW (11.5-15.5) % Plt Count (150-450) k/uL Neutrophils # (1.3-7.7) k/uL APTT 49.7 H (22.0-30.0) sec Sodium (137-145) mmol/L Glucose (74-99) mg/dL Assessment and Plan Assessment: Assessment: Triple-vessel coronary artery disease. Non-ST segment elevation myocardial infarction. Layered apical thrombus. Acute hypoxemic respiratory failure secondary to CHF. Lactic acidosis, recovered. History of CAD, with previous PCI/stent. Chronic and ongoing tobacco dependence. Plan: Plan dated February 21, 2024. The patient is seen in the intensive care unit, room 257. He is on no supplemental oxygen. He is getting saline at 10 cc an hour. He is on IV heparin. Cardiology note reviewed, carvidolol 3.125 mg p.o. twice daily switched to metoprolol succinate 25 mg p.o. daily. Per cardiothoracic, patient is very high risk for open heart surgery. Cardiology will be evaluating for possible PCI of the left circumflex in the next 24 to 48 hours. The patient is receiving appropriate medications. We will continue to monitor. Prognosis is guarded. Time with Patient: Less than 30
--- NOTE | 2024-02-22 14:49 | P.PN ---
Subjective Progress Note Date: 02/22/24 Clinical course: Patient is a 63-year-old male with hypertension and remote history of CAD status post stent in early came to ED with worsening exertional dyspnea that started 1 week ago. Patient states that he suddenly felt short of breath a week ago while carrying his laundry upstairs from the basement and he had to sit on the stairs for couple of minutes to catch his breath. He denies any associated chest pain or diaphoresis. Since then his shortness of breath has been getting worse. It is worse with physical activities such as walking or climbing stairs and better with rest. He also has been endorsing orthopnea and PND since 1 week. He felt his symptoms were worst today which prompted him to come to the ER. Patient never experienced these symptoms in the past although he states that he had chest pain in early and had a stent put in. Denies any recent hospitalization, upper respiratory tract infection, recent travel. Patient is not on any blood thinners. No history of blood clots. Denies any use of illicit drug except for occasional LSD and marijuana. He otherwise has no other ongoing medical condition. At the time of interview patient is feeling better with BiPAP and pain medication. He continues to deny any active chest pain. Laboratory evaluation in the ER shows WBC 12.2, hemoglobin 11.2, hematocrit 35.2, platelet count 414, PT 13.0, INR 1.2, APTT 20.3, pH 7.26, pCO2 49, bicarb 20, sodium 140, potassium 4.2, chloride 108, BUN 30, creatinine 0.8, glucose 1 82, Lactic acid 4.2, troponin I 10.600, NT proBNP [id number]: Tmax 97.1, heart rate 120, respiration rate 36, blood pressure 135/89, oxygen saturation 98% on BiPAP with a setting of IPAP 14, EPAP 6, respirate 14, FiO2 50%. Chest x-ray independently interpreted shows diffuse reticular markings bilaterally. EKG independently interpreted shows sinus tachycardia with normal ME interval, normal QRS interval and normal QTc interval. ST elevation noted in V3 with T wave inversion in V4, V5 and V6. Patient is admitted for acute CHF secondary to ACS with elevated troponin levels. Cardiology is consulted. Pulmonology consulted. Patient is transferred to ICU for close monitoring. Patient is currently on nitroglycerin drip and BiPAP. Patient went for cath and will undergo open heart consult for CABG. coronary angiography show 100% thrombotic mid-distal LAD stenosis, RAN 0 flow, 80% OM1 disease, 80% distal LCx disease, 40% diffuse RCA disease, 80 to 90% PDA disease. All Systems reviewed and pertinent positives and negatives noted in HPI, all other symptoms are negative Subjective 02/22/24 Patient seen and examined at the bedside. No acute events overnight. No chest pain or Shortness of breath. Pending cardiology for possible percutaneous revascularization of the left circumflex in the next 24 to 48 hours. Labs: WBC 11.4, hemoglobin 11.1, hematocrit 34.0, platelet count 506, sodium 1 35, potassium 4.1, BUN 19, creatinine 0.97 Physical examination: Vital signs reviewed General: non toxic, mild distress, appears at stated age, overweight Derm: no unusual rashes/lesions, warm Head: atraumatic, normocephalic, symmetric Eyes: EOMI, no lid lag, anicteric sclera, pupils equal round reactive to light ENT: Nose and ears atraumatic Neck: No cervical lymphadenopathy, trachea midline, supple Mouth: no lip lesion, mucus membranes moist Cardiovascular: S1S2 reg, no murmur, positive dorsalis pedis pulse bilateral, 1+ pitting edema RLE and 1+ pitting edema LLE Lungs: Decreased breath sounds bilaterally, no rhonchi, no rales, no accessory muscle use Abdominal: soft, nontender to palpation, no guarding Ext: muscle strength 5 out of 5 in all 4 extremities grossly, no gross muscle atrophy, no contractures, Neuro: CN II-XI grossly intact, no gross focal neuro deficits Psych: Alert, oriented, appropriate affect Pertinent Lab work during hospitalization: Troponin I continue to trend upward from 10.6 --> 40--> 58; NT proBNP 26923 Lipid panel shows LDL of 124 Hemoglobin 10.1, MCV 87.7 \Iron 57, TIBC 192, transferrin 137, ferritin 2441 Pertinent Imaging during hospitalization: Chest x-ray shows diffuse reticulo-nodular markings bilaterally EKG in ED shows ST elevation noted in V3 with T wave inversion in V4, V5 and V6 Cardiac catheterization shows multivessel stenosis including 100% mid to distal LAD, 80% OM1, 80% distal LCx, 40% RCA, 80 to 90% PDA; cardiothoracic surgery consulted for open heart surgery awaiting recommendations Echocardiogram shows left ventricular ejection fraction 25 to 30%. Large left ventricular apical thrombus, apical/lateral wall/posterior wall hypokinesis Assessment/Plan: 63-year-old male with past medical history of CAD status post stent and hypertension came to the ER with worsening exertional dyspnea likely has acute congestive heart failure exacerbation secondary to STEMI #Acute systolic congestive heart failure exacerbation secondary to STEMI #Remote history of CAD status post stent #Congestive Hepatopathy #Pericardial Effusion #Severe ischemic cardiomyopathy Anticoagulation with heparin drip, follow PTT for toxicity Lasix 40 mg every 12 hour Atorvastatin 80 mg p.o. daily, aspirin 81 mg p.o. daily Strict I's and O's, daily weights, fluid restriction 1.5 L Cardiology following Heart healthy diet - nitro gtt was discontinued Continue cardiac telemetry Continue monitor CBC and BMP Pulmonology following continue guideline directed medical therapy for CHF: on entresto 24/26 mg half tablet p.o. twice daily, Coreg 3.125 mg p.o. twice daily, spironolactone 25mg daily, can tolerate farxiga on discharge Pending cardiology for possible percutaneous revascularization of the left circumflex in the next 24 to 48 hours. #Hypokalemia, resolved Monitor BMP #Hypertension Not on home medication Management as above #Normocytic anemia secondary to anemia of chronic disease Patient denies active bleeding Continue to monitor CBC Transfusion with PRBC if hemoglobin less than 7 #Subclinical hypothyroidism - outpatient recheck in 6 months Resolved: #Elevated lactic acid secondary to above, resolved #Anion gap metabolic acidosis secondary to lactic acidosis, resolved DVT prophylaxis with heparin drip Code Status: Full code Anticipated discharge place: Pending clinical course Anticipated discharge date: Pending clinical course I saw and evaluated the patient during the yanes and critical portions of this encounter, and discussed the case in detail with the resident author of this note, I agree with the Assessment and Plan, and my changes, if any, are highlighted in blue. Objective - Vital Signs Vital signs: Vital Signs Temp 98.1 F 02/22/24 03:31 Pulse 103 H 02/22/24 03:31 Resp 16 02/21/24 19:58 BP 114/73 02/22/24 03:31 Pulse Ox 96 02/22/24 03:31 FiO2 40 02/18/24 07:48 Intake & Output 02/21/24 02/22/24 02/22/24 18:59 06:59 18:59 Intake Total 730.000 226.92 Output Total 1025 600 Balance -295.000 -373.08 Weight 66.1 kg Intake: IV 60 NS 60 Intake, IV Titration 310.000 226.92 Amount Heparin Sod,Pork in 0.45% 250.000 226.92 NaCl 25,000 unit In 0.45 % NaCl 1 250ml.bag @ 12 UNITS/KG/HR 9.798 mls/hr IV .Q24H RICK Rx#: [id number] Sodium Chloride 0.9% 500 60 ml 500 ml @ 10 mls/hr IV .Q24H RICK Rx#:[id number] Oral 360 Output: Urine 1025 600 Other: Voiding Method Urinal Urinal # Voids 1 1 # Bowel Movements 1 - Labs CBC & Chem 7: 02/22/24 05:44 02/22/24 05:44 Labs: Abnormal Lab Results - Last 24 Hours (Table) 02/21/24 02/22/24 02/22/24 Range/Units 16:15 05:44 05:44 WBC 11.4 H (3.8-10.6) k/uL RBC 3.89 L (4.30-5.90) m/uL Hgb 11.1 L (13.0-17.5) gm/dL Hct 34.0 L (39.0-53.0) % RDW 16.4 H (11.5-15.5) % Plt Count 506 H (150-450) k/uL Neutrophils # 9.6 H (1.3-7.7) k/uL APTT 43.9 H (22.0-30.0) sec Sodium 135 L (137-145) mmol/L Glucose 116 H (74-99) mg/dL 02/22/24 Range/Units 05:44 WBC (3.8-10.6) k/uL RBC (4.30-5.90) m/uL Hgb (13.0-17.5) gm/dL Hct (39.0-53.0) % RDW (11.5-15.5) % Plt Count (150-450) k/uL Neutrophils # (1.3-7.7) k/uL APTT 49.7 H (22.0-30.0) sec Sodium (137-145) mmol/L Glucose (74-99) mg/dL
--- NOTE | 2024-02-22 15:11 | P.PN ---
Subjective Progress Note Date: 02/22/24 Patient is a 63-year-old white male with past medical history significant for coronary artery disease with previous PCI/stent. Patient does not have a current primary care provider. He smokes approximately 1 pack/day, and has over [id number] history. Patient presented the emergency department yesterday with 24 hours of relatively acute onset shortness of breath associated with nausea and diaphoresis. This occurred while sitting down and watching TV. He does admit to feeling generally unwell and fatigued, over the last week or so. He denies any actual chest pain. He was placed on BiPAP in the emergency department. EKG done on arrival showed some questionable ST segment elevation in the anterior leads. His troponins are elevated at 40, 58 respectively. An echocardiogram was performed in the emergency department, we are awaiting official results. Patient reportedly had a left ventricle thrombus. Patient currently on a heparin drip per protocol. Also, receiving nitroglycerin infusion at 25 mcg/min. Chest x-ray consistent with pulmonary edema. patient was placed on BiPAP in the emergency department, which she continues on with settings 14/6 and FiO2 of 40%. He is still tachypneic. Respiratory rate is in the mid 30s. Tidal volume 450-500. He is receiving Lasix 20 mg twice daily. CBC: WBC count 12.2, hemoglobin 11.2, hematocrit 35.2, platelets 414. CMP: Sodium 140, potassium 4.2, chloride 108, serum bicarb 20, BUN 13, creatinine 0.8, glucose 182. Lactic mildly elevated at 4.2 and down to 2. LFTs unremarkable. NT proBNP significantly elevated at 12,500. COVID-negative. Patient denies any infectious-like symptoms. I am evaluating this patient in the intensive care unit, room 257. He remains on BiPAP he is slightly tachypneic, but fairly comfortable considering. He is able to speak in full sentences and answer most of my questions. No accessory muscle use. SpO2 is reading 97%. He is only voided 1 time since Lasix. Remains tachycardic with a current rate of 112 bpm. Blood pressure 101/82 mmHg. Not currently requiring any vasopressor support. We are awaiting further recommendations from cardiology. Progress note dated February 19, 2024 Patient evaluated in the ICU today. He presented for worsening exertional dyspnea and his troponins up trended from 10 to 40-58 and his echo showed 25 to 30% ejection fraction with apical hypokinesia, layered apical thrombus and a dilated RV. Cardiology recommended to avoid beta-blockers. PROBNP was 12,500. He was diagnosed with non-STEMI and acute hypoxic respiratory failure secondary to CHF exacerbation. He got left heart catheterization done today. 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 Nitroglycerin drip will be restarted at 5 mcg/min and heparin drip will be restarted after 3 hours of cardiac cath. He will also get 0.9 normal saline at 75 mL/h. He is on 2 L nasal cannula saturating at 96%. Labs today show WBC 12, hemoglobin 10.1, platelet 474, sodium 141, potassium 3.3, chloride 106, bicarb 29, BUN 26, creatinine 0.6, glucose 128, APTT 34.0, A1c 6.12, iron 57, TIBC 192, transferrin 137, ferritin 2441, percent saturation 29, last troponin(02/17) is 39. Progress note dated February 20, 2024. Patient seen in the ICU today. He denies any chest pain, shortness of breath. He had a cardiac catheterization done yesterday which showed 20% thrombotic mid distal LAD stenosis, 50% proximal LAD stenosis, 80% left circumflex stenosis and 80 to 90% PDA. He received open not consulted and surgery said to continue aspirin, statin, beta-ruslan, Entresto and diuretics. 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 They also m entioned very high risk with limited benefit from CABG alone, more recommendations will follow. Patient is doing well on room air, saturating at 92%. He continues to be on heparin drip, nitroglycerin at 5 mg/min and 0.9 normal saline at 10 mL/h. Labs show WBC 10, hemoglobin 11, platelet 535, lorelei tocrit 37, sodium 137, potassium 4.7, chloride 105, bicarb 27, BUN 17, creatinine 0.8 129, calcium 8.7, magnesium 1.7, APTT 194. Magnesium has been repleted. Progress note dated February 21, 2024. 64-year-old male seen in room 257. The patient continues on IV heparin. He is on saline at 10 cc an hour. He is not receiving any supplemental oxygen. Apparently according to the nurse, there is no plans for surgery on this patient. Apparently cardiothoracic surgery feels the patient is too high risk. The patient had an uneventful night according to the nurse. Current labs include a white count 10.7, hemoglobin 11, hematocrit 33.7, platelet count 521,000. PTT is 41.0. Sodium 135, potassium 3.5, chlorides 103, CO2 29, BUN 18, creatinine 0.82. On 02/22/2024, the patient is being seen for a follow-up. Patient is free of any chest pain and is resting comfortably in bed. The patient has multivessel coronary artery disease. He underwent a cardiac catheterization and was found to have occluded mid LAD with obstruction in the OM and circumflex. The patient was considered to be very high surgical risk for thoracotomy and bypass surgery. Based on that, we are awaiting further recommendations from cardiology/interventional cardiology. Noted the patient also has severe cardiomyopathy along with anteroapical akinesis and apical thrombus and the patient remains on IV heparin. He remains hemodynamically stable. Cardiac rhythm is sinus. The patient is on metoprolol 25 mg p.o. daily. The patient was started on Entresto 24/26 mg the day and the patient is also on Aldactone. He remains on aspirin and high-dose statins. WBC 11.4 with a hemoglobin 11.1 and platelet count of 506. PTT is therapeutic and the patient's BUN is 19 with a creatinine of 0.9 and electrolytes are all within normal limits. No other significant events overnight. His echocardiogram that was done on 02/17/2024 revealed impaired left ventricular function with an ejection fraction of 25 to 30% along with wall motion abnormalities and hypokinetic anterior wall and hypokinetic posterior wall and lateral wall. He also had severe pulm hypertension and right ventricular pressure estimated to be around 65. He had also severe RV enlargement and moderate pericardial effusion and left-sided pleural effusion. He is currently resting comfortably without any respiratory distress and the patient is currently on room air oxygen with a pulse ox of 94%. Objective - Vital Signs Vital signs: Vital Signs Temp 98.1 F 02/22/24 03:31 Pulse 103 H 02/22/24 03:31 Resp 16 02/21/24 19:58 BP 114/73 02/22/24 03:31 Pulse Ox 96 02/22/24 03:31 FiO2 40 02/18/24 07:48 Intake & Output 02/21/24 02/22/24 02/22/24 18:59 06:59 18:59 Intake Total 730.000 226.92 Output Total 1025 600 Balance -295.000 -373.08 Weight 66.1 kg Intake: IV 60 NS 60 Intake, IV Titration 310.000 226.92 Amount Heparin Sod,Pork in 0.45% 250.000 226.92 NaCl 25,000 unit In 0.45 % NaCl 1 250ml.bag @ 12 UNITS/KG/HR 9.798 mls/hr IV .Q24H RICK Rx#: [id number] Sodium Chloride 0.9% 500 60 ml 500 ml @ 10 mls/hr IV .Q24H RICK Rx#:[id number] Oral 360 Output: Urine 1025 600 Other: Voiding Method Urinal Urinal # Voids 1 1 # Bowel Movements 1 - Exam No acute distress, oriented 3. Currently on room air. HEENT examination is grossly unremarkable. Mucous membranes are moist. No oral lesions. Neck supple. Full range of motion. No adenopathy thyromegaly or neck vein distention. Cardiovascular examination reveals regular rhythm rate. S1-S2 normal. No S3 or S4. No discernible murmur noted. Heart sounds are distant. Lungs reveal clear breath sounds. Breath sounds are equal bilaterally. No adventitious lung sounds including wheezes rhonchi or crackles. Abdomen soft bowel sounds are heard. No masses or tenderness. Extremities are intact. No cyanosis clubbing or edema. Skin is without rash or lesion. Neurologic examination is brief but nonfocal. - Labs CBC & Chem 7: 02/22/24 05:44 02/22/24 05:44 Labs: Abnormal Lab Results - Last 24 Hours (Table) 02/21/24 02/22/24 02/22/24 Range/Units 16:15 05:44 05:44 WBC 11.4 H (3.8-10.6) k/uL RBC 3.89 L (4.30-5.90) m/uL Hgb 11.1 L (13.0-17.5) gm/dL Hct 34.0 L (39.0-53.0) % RDW 16.4 H (11.5-15.5) % Plt Count 506 H (150-450) k/uL Neutrophils # 9.6 H (1.3-7.7) k/uL APTT 43.9 H (22.0-30.0) sec Sodium 135 L (137-145) mmol/L Glucose 116 H (74-99) mg/dL 02/22/24 Range/Units 05:44 WBC (3.8-10.6) k/uL RBC (4.30-5.90) m/uL Hgb (13.0-17.5) gm/dL Hct (39.0-53.0) % RDW (11.5-15.5) % Plt Count (150-450) k/uL Neutrophils # (1.3-7.7) k/uL APTT 49.7 H (22.0-30.0) sec Sodium (137-145) mmol/L Glucose (74-99) mg/dL Assessment and Plan Plan: Triple-vessel coronary artery disease. The patient has disease involving the mid LAD along with disease involving the OM branch and circumflex. Is considered to be a high surgical risk for coronary bypass surgery. He has ischemic cardiomyopathy with multiple segmental wall motion abnormalities. Status post Non-ST segment elevation myocardial infarction. Left apical thrombus, currently on IV heparin Severe ischemic cardiomyopathy with ejection fraction of 25 to 30% Severe pulm hypertension, group 2 pulmonary potation with an estimated PA pressure of around 65 Acute hypoxemic respiratory failure secondary to CHF, improved and the patient is currently on room air oxygen Lactic acidosis, recovered. History of CAD, with previous PCI/stent. Chronic and ongoing tobacco dependence. Plan: Patient is currently on room air oxygen Continue IV heparin Continue aspirin Continue metoprolol Continue Entresto Continue Aldactone No diuretics for now Awaiting further recommendations from interventional cardiology. The patient will be transferred to a telemetry unit.
[2024-02-22] MEDS ORDERED: NITROGLYCERIN SL TABS 0.4 MG TAB SUBLINGUAL PRN (15:26)
[2024-02-22] MEDS ORDERED: ALPRAZolam 0.5 MG TAB PO PRN (15:26)
[2024-02-22] MEDS ORDERED: ALPRAZolam 0.25 MG TAB PO PRN (15:26)
[2024-02-23] MEDS: ATORVASTATIN 80 MG TAB PO ONE (06:04)
[2024-02-23] MEDS: ASPIRIN 325 MG TAB PO ONE (06:04)
[2024-02-23 06:44] LABS: African American GFR (CKD) >90 (>60 ml/min/1.73 sqM); Anion Gap 9 mmol/L; Blood Urea Nitrogen 19 mg/dL (9-20); Carbon Dioxide 24 mmol/L (22-30); Chloride 100 mmol/L (98-107); Glucose 144 mg/dL (74-99); Non-African American GFR(CKD) 89 (>60 ml/min/1.73 sqM); Potassium 3.9 mmol/L (3.5-5.1); Sodium 133 mmol/L (137-145)
[2024-02-23 08:19] LABS: Glucose,Whole Blood 139 mg/dL (70-110)
[2024-02-23] MEDS: TICAGRELOR 90 MG TAB PO ONE (11:16)
[2024-02-23] MEDS: SODIUM CHLORIDE 0.9% 1,000 ML IV ONE (11:16)
[2024-02-23] MEDS: HEPARIN SODIUM,PORCINE (1 ML) 2,500 UNIT in SODIUM CHLORIDE 0.9% 250 ML IRRIGATION PRN (11:17)
[2024-02-23] MEDS: HEPARIN SODIUM,PORCINE 10,000 UNIT in SODIUM CHLORIDE 0.9% 1,000 ML IRRIGATION PRN (11:17)
--- NOTE | 2024-02-23 13:05 | P.PN ---
Subjective Progress Note Date: 02/23/24 Patient is a 63-year-old white male with past medical history significant for coronary artery disease with previous PCI/stent. Patient does not have a current primary care provider. He smokes approximately 1 pack/day, and has over [id number] history. Patient presented the emergency department yesterday with 24 hours of relatively acute onset shortness of breath associated with nausea and diaphoresis. This occurred while sitting down and watching TV. He does admit to feeling generally unwell and fatigued, over the last week or so. He denies any actual chest pain. He was placed on BiPAP in the emergency department. EKG done on arrival showed some questionable ST segment elevation in the anterior leads. His troponins are elevated at 40, 58 respectively. An echocardiogram was performed in the emergency department, we are awaiting official results. Patient reportedly had a left ventricle thrombus. Patient currently on a heparin drip per protocol. Also, receiving nitroglycerin infusion at 25 mcg/min. Chest x-ray consistent with pulmonary edema. patient was placed on BiPAP in the emergency department, which she continues on with settings 14/6 and FiO2 of 40%. He is still tachypneic. Respiratory rate is in the mid 30s. Tidal volume 450-500. He is receiving Lasix 20 mg twice daily. CBC: WBC count 12.2, hemoglobin 11.2, hematocrit 35.2, platelets 414. CMP: Sodium 140, potassium 4.2, chloride 108, serum bicarb 20, BUN 13, creatinine 0.8, glucose 182. Lactic mildly elevated at 4.2 and down to 2. LFTs unremarkable. NT proBNP significantly elevated at 12,500. COVID-negative. Patient denies any infectious-like symptoms. I am evaluating this patient in the intensive care unit, room 257. He remains on BiPAP he is slightly tachypneic, but fairly comfortable considering. He is able to speak in full sentences and answer most of my questions. No accessory muscle use. SpO2 is reading 97%. He is only voided 1 time since Lasix. Remains tachycardic with a current rate of 112 bpm. Blood pressure 101/82 mmHg. Not currently requiring any vasopressor support. We are awaiting further recommendations from cardiology. Progress note dated February 19, 2024 Patient evaluated in the ICU today. He presented for worsening exertional dyspnea and his troponins up trended from 10 to 40-58 and his echo showed 25 to 30% ejection fraction with apical hypokinesia, layered apical thrombus and a dilated RV. Cardiology recommended to avoid beta-blockers. PROBNP was 12,500. He was diagnosed with non-STEMI and acute hypoxic respiratory failure secondary to CHF exacerbation. He got left heart catheterization done today. 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 Nitroglycerin drip will be restarted at 5 mcg/min and heparin drip will be restarted after 3 hours of cardiac cath. He will also get 0.9 normal saline at 75 mL/h. He is on 2 L nasal cannula saturating at 96%. Labs today show WBC 12, hemoglobin 10.1, platelet 474, sodium 141, potassium 3.3, chloride 106, bicarb 29, BUN 26, creatinine 0.6, glucose 128, APTT 34.0, A1c 6.12, iron 57, TIBC 192, transferrin 137, ferritin 2441, percent saturation 29, last troponin(02/17) is 39. Progress note dated February 20, 2024. Patient seen in the ICU today. He denies any chest pain, shortness of breath. He had a cardiac catheterization done yesterday which showed 20% thrombotic mid distal LAD stenosis, 50% proximal LAD stenosis, 80% left circumflex stenosis and 80 to 90% PDA. He received open not consulted and surgery said to continue aspirin, statin, beta-ruslan, Entresto and diuretics. 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 They also m entioned very high risk with limited benefit from CABG alone, more recommendations will follow. Patient is doing well on room air, saturating at 92%. He continues to be on heparin drip, nitroglycerin at 5 mg/min and 0.9 normal saline at 10 mL/h. Labs show WBC 10, hemoglobin 11, platelet 535, lorelei tocrit 37, sodium 137, potassium 4.7, chloride 105, bicarb 27, BUN 17, creatinine 0.8 129, calcium 8.7, magnesium 1.7, APTT 194. Magnesium has been repleted. Progress note dated February 21, 2024. 64-year-old male seen in room 257. The patient continues on IV heparin. He is on saline at 10 cc an hour. He is not receiving any supplemental oxygen. Apparently according to the nurse, there is no plans for surgery on this patient. Apparently cardiothoracic surgery feels the patient is too high risk. The patient had an uneventful night according to the nurse. Current labs include a white count 10.7, hemoglobin 11, hematocrit 33.7, platelet count 521,000. PTT is 41.0. Sodium 135, potassium 3.5, chlorides 103, CO2 29, BUN 18, creatinine 0.82. On 02/22/2024, the patient is being seen for a follow-up. Patient is free of any chest pain and is resting comfortably in bed. The patient has multivessel coronary artery disease. He underwent a cardiac catheterization and was found to have occluded mid LAD with obstruction in the OM and circumflex. The patient was considered to be very high surgical risk for thoracotomy and bypass surgery. Based on that, we are awaiting further recommendations from cardiology/interventional cardiology. Noted the patient also has severe cardiomyopathy along with anteroapical akinesis and apical thrombus and the patient remains on IV heparin. He remains hemodynamically stable. Cardiac rhythm is sinus. The patient is on metoprolol 25 mg p.o. daily. The patient was started on Entresto 24/26 mg the day and the patient is also on Aldactone. He remains on aspirin and high-dose statins. WBC 11.4 with a hemoglobin 11.1 and platelet count of 506. PTT is therapeutic and the patient's BUN is 19 with a creatinine of 0.9 and electrolytes are all within normal limits. No other significant events overnight. His echocardiogram that was done on 02/17/2024 revealed impaired left ventricular function with an ejection fraction of 25 to 30% along with wall motion abnormalities and hypokinetic anterior wall and hypokinetic posterior wall and lateral wall. He also had severe pulm hypertension and right ventricular pressure estimated to be around 65. He had also severe RV enlargement and moderate pericardial effusion and left-sided pleural effusion. He is currently resting comfortably without any respiratory distress and the patient is currently on room air oxygen with a pulse ox of 94%. On 02/23/2024, the patient has no specific complaints. The patient will be taken by interventional cardiology for coronary intervention today. Hemodynamically stable. He is free of any chest pain. He remains on IV heparin. Rest of the cardiac medications remain unchanged. The patient has a white cell count of 11.4 with a hemoglobin of 1.1. Electrolytes from today shows a BUN of 19 with a creatinine of 0.9 and sodium is at 133. Cardiac rhythm is sinus. He is on room air oxygen. No signs of any respiratory distress. He is known to have impaired LV function with an ejection fraction of 25 to 30%. He also has segmental wall motion abnormalities and secondary pulmonary hypertension. He also has a moderate-sized pericardial effusion and left-sided pleural effusion is also present. Objective - Vital Signs Vital signs: Vital Signs Temp 98.9 F 02/23/24 04:00 Pulse 103 H 02/23/24 04:00 Resp 19 02/23/24 04:00 BP 114/69 02/23/24 04:00 Pulse Ox 95 02/23/24 04:00 FiO2 40 02/18/24 07:48 Intake & Output 02/22/24 02/23/24 02/23/24 18:59 06:59 18:59 Intake Total 250 250 Output Total 475 300 Balance -225 -50 Weight 57.8 kg Intake: Intake, IV Titration 250 250 Amount Heparin Sod,Pork in 0.45% 250 250 NaCl 25,000 unit In 0.45 % NaCl 1 250ml.bag @ 12 UNITS/KG/HR 9.798 mls/hr IV .Q24H RICK Rx#: [id number] Output: Urine 475 300 Other: Voiding Method Urinal Urinal - Exam No acute distress, oriented 3. Currently on room air. HEENT examination is grossly unremarkable. Mucous membranes are moist. No oral lesions. Neck supple. Full range of motion. No adenopathy thyromegaly or neck vein distention. Cardiovascular examination reveals regular rhythm rate. S1-S2 normal. No S3 or S4. No discernible murmur noted. Heart sounds are distant. Lungs reveal clear breath sounds. Breath sounds are equal bilaterally. No adventitious lung sounds including wheezes rhonchi or crackles. Abdomen soft bowel sounds are heard. No masses or tenderness. Extremities are intact. No cyanosis clubbing or edema. Skin is without rash or lesion. Neurologic examination is brief but nonfocal. - Labs CBC & Chem 7: 02/22/24 05:44 02/23/24 05:56 Labs: Abnormal Lab Results - Last 24 Hours (Table) 02/23/24 02/23/24 02/23/24 Range/Units 05:56 05:56 08:18 APTT 73.8 H (22.0-30.0) sec Sodium 133 L (137-145) mmol/L Glucose 144 H (74-99) mg/dL POC Glucose (mg/dL) 139 H (70-110) mg/dL Assessment and Plan Plan: Triple-vessel coronary artery disease. The patient has disease involving the mid LAD along with disease involving the OM branch and circumflex. Is considered to be a high surgical risk for coronary bypass surgery. He has ischemic cardiomyopathy with multiple segmental wall motion abnormalities. Status post Non-ST segment elevation myocardial infarction, currently free of any chest pain Left apical thrombus, currently on IV heparin Severe ischemic cardiomyopathy with ejection fraction of 25 to 30% Severe pulm hypertension, group 2 pulmonary potation with an estimated PA pressure of around 65 Acute hypoxemic respiratory failure secondary to CHF, improved and the patient is currently on room air oxygen Lactic acidosis, recovered. History of CAD, with previous PCI/stent. Chronic and ongoing tobacco dependence. Plan: Patient is currently on room air oxygen Continue IV heparin Continue aspirin Continue metoprolol Continue Entresto Continue Aldactone No diuretics for now The patient will have further treatments through interventional cardiology. The patient will be taken to the [facility] today. Awaiting further recommendations from cardiology.
[2024-02-23] MEDS: MIDAZOLAM 2 MG/2 ML VIAL IVP ONE (13:16)
[2024-02-23] MEDS: LIDOCAINE 1% INJ 10MG/ML (20 ML MDV) SQ ONE (13:16)
[2024-02-23] MEDS: HEPARIN SODIUM 1,000 UN/ML (10ML VL) IV ONE (13:19)
[2024-02-23] MEDS: IOPAMIDOL-370 100ML BTL INJ ONE (13:25)
[2024-02-23] MEDS ORDERED: RX INFO: IV CONTRAST WAS GIVEN 1 EACH MISC MISCELLANE PRN (13:27)
--- NOTE | 2024-02-23 13:34 | P.PCN ---
Date of Procedure: 02/23/24 Operative Findings: CARDIAC CATHETERIZATION PERFORMING PHYSICIAN: Jaime Larry MD, RPVI PROCEDURE PERFORMED: 1. Selective left coronary angiogram 2. Ultrasound-guided access of the right radial artery INDICATION: The patient is a pleasant 65-year-old gentleman who was admitted to the hospital few days ago with acute non-ST ovation myocardial infarction and underwent a heart catheterization which revealed severe disease involving the LAD and LCx. He was seen deemed to be not an ideal candidate for CABG and for that reason he was brought today to undergo PCI of the RCA COMPLICATION: None APPROACH: Right radial artery LEVEL OF SEDATION: Moderate with a sedation length of 12 minutes PROCEDURE DESCRIPTION: After obtaining an informed consent, the patient was brought to cardiac research laboratory specialist. Local anesthesia was performed using lidocaine subcutaneously. The right radial artery was cannulated using Seldinger technique, the guidewire passed easily, following that we advanced a 5-Frisian sheath dilator assembly, the wire and dilator were removed and sheath was flushed. Following that, 2 mg of verapamil along with 5000 unit heparin were given. Selective coronary angiogram was performed using an EBU 3.5 guiding catheter via The procedure was completed there was no complication. SELECTIVE CORONARY ANGIOGRAM: The right coronary artery: Was not opacified Left main: Large caliber vessel and appears to be angiographically normal The left circumflex: Large-caliber vessel nondominant vessel. The first obtuse marginal branch has small residual thrombus identified otherwise the disease appears to be only mild. The mid left circumflex after OM1 has intermediate lesion appears to be in the range of 60% but the artery is only 2 mm in diameter The left anterior descending artery: The proximal LAD appears to have mild disease only. The mid LAD to distal LAD is occluded. CONCLUSION: 1. Significant improvement in the lesion in the first obtuse marginal branch with improvement from 90% to 20% with mild residual thrombus was identified 2. Intermediate disease involving the mid left circumflex after the first obtuse marginal branch POSTPROCEDURE MANAGEMENT: Consider medical treatment only including aggressive cholesterol control and dual antiplatelet therapy
[2024-02-23 13:50] LABS: Glucose,Whole Blood 116 mg/dL (70-110)
--- NOTE | 2024-02-23 14:07 | P.PN ---
Subjective Progress Note Date: 02/23/24 Clinical course: Patient is a 63-year-old male with hypertension and remote history of CAD status post stent in early came to ED with worsening exertional dyspnea that started 1 week ago. Patient states that he suddenly felt short of breath a week ago while carrying his laundry upstairs from the basement and he had to sit on the stairs for couple of minutes to catch his breath. He denies any associated chest pain or diaphoresis. Since then his shortness of breath has been getting worse. It is worse with physical activities such as walking or climbing stairs and better with rest. He also has been endorsing orthopnea and PND since 1 week. He felt his symptoms were worst today which prompted him to come to the ER. Patient never experienced these symptoms in the past although he states that he had chest pain in early and had a stent put in. Denies any recent hospitalization, upper respiratory tract infection, recent travel. Patient is not on any blood thinners. No history of blood clots. Denies any use of illicit drug except for occasional LSD and marijuana. He otherwise has no other ongoing medical condition. At the time of interview patient is feeling better with BiPAP and pain medication. He continues to deny any active chest pain. Laboratory evaluation in the ER shows WBC 12.2, hemoglobin 11.2, hematocrit 35.2, platelet count 414, PT 13.0, INR 1.2, APTT 20.3, pH 7.26, pCO2 49, bicarb 20, sodium 140, potassium 4.2, chloride 108, BUN 30, creatinine 0.8, glucose 1 82, Lactic acid 4.2, troponin I 10.600, NT proBNP [id number]: Tmax 97.1, heart rate 120, respiration rate 36, blood pressure 135/89, oxygen saturation 98% on BiPAP with a setting of IPAP 14, EPAP 6, respirate 14, FiO2 50%. Chest x-ray independently interpreted shows diffuse reticular markings bilaterally. EKG independently interpreted shows sinus tachycardia with normal MT interval, normal QRS interval and normal QTc interval. ST elevation noted in V3 with T wave inversion in V4, V5 and V6. Patient is admitted for acute CHF secondary to ACS with elevated troponin levels. Cardiology is consulted. Pulmonology consulted. Patient is transferred to ICU for close monitoring. Patient is currently on nitroglycerin drip and BiPAP. Patient went for cath and will undergo open heart consult for CABG. coronary angiography show 100% thrombotic mid-distal LAD stenosis, RAN 0 flow, 80% OM1 disease, 80% distal LCx disease, 40% diffuse RCA disease, 80 to 90% PDA disease. All Systems reviewed and pertinent positives and negatives noted in HPI, all other symptoms are negative Subjective 02/23/24 Patient seen and examined at the bedside. No acute events overnight. No chest pain or Shortness of breath. Plan for cardiology for percutaneous revascularization of the left circumflex today. Physical examination: Vital signs reviewed General: non toxic, mild distress, appears at stated age, overweight Derm: no unusual rashes/lesions, warm Head: atraumatic, normocephalic, symmetric Eyes: EOMI, no lid lag, anicteric sclera, pupils equal round reactive to light ENT: Nose and ears atraumatic Neck: No cervical lymphadenopathy, trachea midline, supple Mouth: no lip lesion, mucus membranes moist Cardiovascular: S1S2 reg, no murmur, positive dorsalis pedis pulse bilateral, 1+ pitting edema RLE and 1+ pitting edema LLE Lungs: Decreased breath sounds bilaterally, no rhonchi, no rales, no accessory muscle use Abdominal: soft, nontender to palpation, no guarding Ext: muscle strength 5 out of 5 in all 4 extremities grossly, no gross muscle atrophy, no contractures, Neuro: CN II-XI grossly intact, no gross focal neuro deficits Psych: Alert, oriented, appropriate affect Pertinent Lab work during hospitalization: Troponin I continue to trend upward from 10.6 --> 40--> 58; NT proBNP [id number] Lipid panel shows LDL of 124 Hemoglobin 10.1, MCV 87.7 \Iron 57, TIBC 192, transferrin 137, ferritin 2441 Pertinent Imaging during hospitalization: Chest x-ray shows diffuse reticulo-nodular markings bilaterally EKG in ED shows ST elevation noted in V3 with T wave inversion in V4, V5 and V6 Cardiac catheterization shows multivessel stenosis including 100% mid to distal LAD, 80% OM1, 80% distal LCx, 40% RCA, 80 to 90% PDA; cardiothoracic surgery consulted for open heart surgery awaiting recommendations Echocardiogram shows left ventricular ejection fraction 25 to 30%. Large left ventricular apical thrombus, apical/lateral wall/posterior wall hypokinesis Assessment/Plan: 63-year-old male with past medical history of CAD status post stent and hypertension came to the ER with worsening exertional dyspnea likely has acute congestive heart failure exacerbation secondary to STEMI #Acute systolic congestive heart failure exacerbation secondary to STEMI #Remote history of CAD status post stent #Congestive Hepatopathy #Pericardial Effusion #Severe ischemic cardiomyopathy Anticoagulation with heparin drip, follow PTT for toxicity Lasix 40 mg every 12 hour Atorvastatin 80 mg p.o. daily, aspirin 81 mg p.o. daily Strict I's and O's, daily weights, fluid restriction 1.5 L Cardiology following Heart healthy diet - nitro gtt was discontinued Continue cardiac telemetry Continue monitor CBC and BMP Pulmonology following continue guideline directed medical therapy for CHF: on entresto 24/26 mg half tablet p.o. twice daily, Coreg 3.125 mg p.o. twice daily, spironolactone 25mg daily, can tolerate farxiga on discharge Pending cardiology for possible percutaneous revascularization of the left circumflex in the next 24 to 48 hours. #Hypokalemia, resolved Monitor BMP #Hypertension Not on home medication Management as above #Normocytic anemia secondary to anemia of chronic disease Patient denies active bleeding Continue to monitor CBC Transfusion with PRBC if hemoglobin less than 7 #Subclinical hypothyroidism - outpatient recheck in 6 months Resolved: #Elevated lactic acid secondary to above, resolved #Anion gap metabolic acidosis secondary to lactic acidosis, resolved DVT prophylaxis with heparin drip Code Status: Full code Anticipated discharge place: Pending clinical course Anticipated discharge date: Pending clinical course I saw and evaluated the patient during the yanes and critical portions of this encounter, and discussed the case in detail with the resident author of this note, I agree with the Assessment and Plan, and my changes, if any, are highlighted in blue. Objective - Vital Signs Vital signs: Vital Signs Temp 99.2 F 02/23/24 08:00 Pulse 93 02/23/24 08:00 Resp 18 02/23/24 08:00 BP 92/59 02/23/24 08:00 Pulse Ox 95 02/23/24 08:00 FiO2 40 02/18/24 07:48 Intake & Output 02/22/24 02/23/24 02/23/24 18:59 06:59 18:59 Intake Total 250 250 251.5 Output Total 475 300 100 Balance -225 -50 151.5 Weight 57.8 kg Intake: IV 251.5 Intake, IV Titration 250 250 Amount Heparin Sod,Pork in 0.45% 250 250 NaCl 25,000 unit In 0.45 % NaCl 1 250ml.bag @ 12 UNITS/KG/HR 9.798 mls/hr IV .Q24H [facility] Rx#: [id number] Output: Urine 475 300 100 Other: Voiding Method Urinal Urinal Urinal - Labs CBC & Chem 7: 02/22/24 05:44 02/23/24 05:56 Labs: Abnormal Lab Results - Last 24 Hours (Table) 02/23/24 02/23/24 02/23/24 Range/Units 05:56 05:56 08:18 APTT 73.8 H (22.0-30.0) sec Sodium 133 L (137-145) mmol/L Glucose 144 H (74-99) mg/dL POC Glucose (mg/dL) 139 H (70-110) mg/dL
[2024-02-23] MEDS: SODIUM CHLORIDE 0.9% 1,000 ML IV SCH (15:54)
[2024-02-23] MEDS: SACUBITRIL/VALSARTAN 24 MG-26 MG TABLET PO SCH (15:59)
[2024-02-23] MEDS ORDERED: ACETAMINOPHEN TAB 325 MG TAB PO PRN (16:15)
[2024-02-23] MEDS: TICAGRELOR 90 MG TAB PO SCH (20:02)
[2024-02-24 07:40] VITALS: BP 109/71; PULSE 100; RESP 20; TEMP 98.1
[2024-02-24 07:59] LABS: Basophils % (A) 0 %; Eosinophils # (A) 0.1 k/uL (0-0.7); Eosinophils % (A) 1 %; HCT 37.5 % (39.0-53.0); HGB 11.7 gm/dL (13.0-17.5); Hypochromasia Marked; Lymphocytes % (A) 8 %; MCH 27.6 pg (25.0-35.0); MCHC 31.1 g/dL (31.0-37.0); MCV 88.7 fL (80.0-100.0); Mean Platelet Volume 7.9; Monocytes # (A) 0.6 k/uL (0-1.0); Monocytes % (A) 5 %; Neutrophils # (A) 10.3 k/uL (1.3-7.7); Neutrophils % (A) 85 %; Platelet Count 529 k/uL (150-450); RBC 4.22 m/uL (4.30-5.90); RDW 15.9 % (11.5-15.5); WBC 12.1 k/uL (3.8-10.6)
[2024-02-24 08:18] LABS: African American GFR (CKD) >90 (>60 ml/min/1.73 sqM); Anion Gap 9 mmol/L; Blood Urea Nitrogen 17 mg/dL (9-20); Calcium 9.2 mg/dL (8.4-10.2); Carbon Dioxide 26 mmol/L (22-30); Chloride 102 mmol/L (98-107); Glucose 118 mg/dL (74-99); Non-African American GFR(CKD) >90 (>60 ml/min/1.73 sqM); Sodium 137 mmol/L (137-145)
[2024-02-24] MEDS: APIXABAN 5 MG TAB PO SCH (08:28)
--- NOTE | 2024-02-24 09:40 | P.PN ---
Subjective Progress Note Date: 02/24/24 PROGRESS NOTE The patient is a 64-year-old male who presented with history of progressive dyspnea and was found to have QS pattern anteriorly and evidence of myocardial infarction with anteroapical akinesis with apical thrombus. He has a prior history of alcohol intake which he stopped 7 years ago. History of chronic tobacco use and marijuana use. He underwent cardiac catheterization by Dr. Mendoza and was found to have occluded mid LAD with obstructive disease in the OM and left circumflex. He was seen by the surgical team and was not felt to be a surgical candidate. He is feeling well this morning, denies any chest discomfort, dizziness or palpitations. He is in sinus mechanism, ambulating wi thout difficulties. He is hemodynamically stable on no vasopressors. Medications: Aspirin, Lipitor 80 mg daily, carvedilol 3.125 mg twice a day, Entresto 24/26/2 tablet twice a day, IV heparin, spironolactone 25 mg daily LAB: BUN 19, creatinine 0.97, hemoglobin 11.1 02/23 Yesterday, patient underwent left coronary angiogram status post PCI of the RCA. This morning, patient denies having any chest pain, shortness of breath, palpitations. Blood pressure 119/71, heart rate 100, pulse ox 97% on room air. Repeat blood work reveals WBC 12.1, hemoglobin 11.7. Potassium 4, BUN 17 creatinine 0.86. Heparin drip was discontinued yesterday. PHYSICAL EXAMINATION: Vital signs reviewed LUNGS: Clear to auscultation HEART: Regular rate and rhythm, S1, S2. No S3. No systolic murmur ABDOMEN: Soft, nontender, no organomegaly EXTREMETIES: No edema IMPRESSION: 1. Status post anterior myocardial infarction with apical thrombus 2. Occluded mid LAD and significant disease in the OM and left circumflex status post PCI of the RCA 3. History of chronic tobacco use 4. History of marijuana use PLAN: 1. Continue patient on the following medications: Eliquis 5 mg twice daily, Lipitor 80 mg daily, Plavix 75 mg daily, Toprol-XL 25 mg daily, Nitrostat as needed, Entresto 24-26 mg twice daily, Aldactone 25 mg daily. Prescriptions have been sent to his pharmacy. 2. Patient is cleared for discharge from cardiology and may follow-up with Dr. Mendoza in 1 week. Nurse practitioner note has been reviewed, I agree with documented findings and plan of care. Patient was seen and examined. Objective - Vital Signs Vital signs: Vital Signs Temp 98.1 F 02/24/24 07:38 Pulse 100 02/24/24 07:38 Resp 20 02/24/24 07:38 BP 109/71 02/24/24 07:38 Pulse Ox 97 02/24/24 07:38 FiO2 40 02/18/24 07:48 Intake & Output 02/23/24 02/24/24 02/24/24 18:59 06:59 18:59 Intake Total 676.5 118 Output Total 250 Balance 426.5 118 Weight 65 kg Intake: IV 301.5 Intake, IV Titration 375 Amount Sodium Chloride 0.9% 1, 375 000 ml @ 75 mls/hr IV . [id number] [facility] Rx#:[id number] Oral 118 Output: Urine 250 Other: Voiding Method Urinal Toilet # Voids 2 - Labs CBC & Chem 7: 02/24/24 06:39 02/24/24 06:39 Labs: Abnormal Lab Results - Last 24 Hours (Table) 02/23/24 02/24/24 02/24/24 Range/Units 13:48 06:39 06:39 WBC 12.1 H (3.8-10.6) k/uL RBC 4.22 L (4.30-5.90) m/uL Hgb 11.7 L (13.0-17.5) gm/dL Hct 37.5 L (39.0-53.0) % RDW 15.9 H (11.5-15.5) % Plt Count 529 H (150-450) k/uL Neutrophils # 10.3 H (1.3-7.7) k/uL Glucose 118 H (74-99) mg/dL POC Glucose (mg/dL) 116 H (70-110) mg/dL
[2024-02-24] MEDS: CLOPIDOGREL 75 MG TAB PO SCH (10:10)
[2024-02-24 10:44] VITALS: BMI 22.4
--- NOTE | 2024-02-24 15:19 | P.DS ---
Providers Date of admission: 02/17/24 14:49 Expected date of discharge: 02/24/24 Attending physician: Moise Sams Consults: 02/17/24 14:48 Consult Physician Urgent Consulting Provider: Avinash Mendoza Consult Reason/Comments: CHF, NSTEMI Do you want consulting provider notified?: Already Contacted 02/17/24 19:14 Consult Physician Urgent Consulting Provider: Rashid Rooney Consult Reason/Comments: pulmonary edema Do you want consulting provider notified?: Already Contacted 02/19/24 08:39 Consult Physician Routine Consulting Provider: Andrew Donato Consult Reason/Comments: cabg eval Do you want consulting provider notified?: Already Contacted Primary care physician: Stated None Hospital Course: Discharge Diagnoses: #Acute STEMI #Acute systolic congestive heart failure exacerbation #Remote history of CAD status post stent #Congestive Hepatopathy #Pericardial Effusion #Severe ischemic cardiomyopathy #Hypertension #Normocytic anemia secondary to anemia of chronic disease #Subclinical hypothyroidism #Elevated lactic acid secondary to above #Anion gap metabolic acidosis secondary to lactic acidosis #Hypokalemia Hyponatremia Thrombocytosis Prediabetes, A1c 6.1 Hospital Course: Patient is a 63-year-old male with hypertension and remote history of CAD status post stent in early came to ED with worsening exertional dyspnea that started 1 week ago. Patient states that he suddenly felt short of breath a week ago while carrying his laundry upstairs from the basement and he had to sit on the stairs for couple of minutes to catch his breath. He denies any associated chest pain or diaphoresis. Since then his shortness of breath has been getting worse. It is worse with physical activities such as walking or climbing stairs and better with rest. He also has been endorsing orthopnea and PND since 1 week. He felt his symptoms were worst today which prompted him to come to the ER. Patient never experienced these symptoms in the past although he states that he had chest pain in early and had a stent put in. Denies any recent hospitalization, upper respiratory tract infection, recent travel. Patient is not on any blood thinners. No history of blood clots. Denies any use of illicit drug except for occasional LSD and marijuana. He otherwise has no other ongoing medical condition. At the time of interview patient is feeling better with BiPAP and pain medication. He continues to deny any active chest pain. Laboratory evaluation in the ER shows WBC 12.2, hemoglobin 11.2, hematocrit 35.2, platelet count 414, PT 13.0, INR 1.2, APTT 20.3, pH 7.26, pCO2 49, bicarb 20, sodium 140, potassium 4.2, chloride 108, BUN 30, creatinine 0.8, glucose 182, Lactic acid 4.2, troponin I 10.600, NT proBNP 49571. Vitals: Tmax 97.1, heart rate 120, respiration rate 36, blood pressure 135/89, oxygen saturation 98% on BiPAP with a setting of IPAP 14, EPAP 6, respirate 14, FiO2 50%. Chest x- ray independently interpreted shows diffuse reticular markings bilaterally. EKG independently interpreted shows sinus tachycardia with normal HI interval, normal QRS interval and normal QTc interval. ST elevation noted in V3 with T wave inversion in V4, V5 and V6. Patient is admitted for acute CHF secondary to ACS with elevated troponin levels. Cardiology is consulted. Pulmonology was consulted. Patient was transferred to ICU for close monitoring. Patient is currently on nitroglycerin drip and BiPAP. Patient went for cath and will undergo open heart consult for CABG. coronary angiography show 100% thrombotic mid-distal LAD stenosis, RAN 0 flow, 80% OM1 disease, 80% distal LCx disease, 40% diffuse RCA disease, 80 to 90% PDA disease. During hospital stay, patient was treated for STEMI. Echocardiogram showed left ventricular ejection fraction 25 to 30%. Patient was treated anticoagulation with heparin drip, Lasix, Atorvastatin. He also received percutaneous revascularization of the left circumflex with significant improvement in the lesion in the first obtuse marginal branch with improvement from 90% to 20% with mild residual thrombus identified. The mid LAD to distal LAD is occluded. He will be discharged in stable condition, eating, ambulating and with no other complaints. He is discharged on spironolactone, Eliquis, Lipitor, nitroglycerin, metoprolol, Julian, Plavix, Farxiga, which were sent to pharmacy. He will need to follow up with new PCP internal medicine clinic and cardiology as an outpatient. Patient was euvolemic at the time of discharge. Physical examination: Vital signs reviewed General: non toxic, mild distress, appears at stated age, overweight Derm: no unusual rashes/lesions, warm Head: atraumatic, normocephalic, symmetric Eyes: EOMI, no lid lag, anicteric sclera, pupils equal round reactive to light ENT: Nose and ears atraumatic Neck: No cervical lymphadenopathy, trachea midline, supple Mouth: no lip lesion, mucus membranes moist Cardiovascular: S1S2 reg, no murmur, positive dorsalis pedis pulse bilateral, no pitting edema Lungs: Decreased breath sounds bilaterally, no rhonchi, no rales, no accessory muscle use Abdominal: soft, nontender to palpation, no guarding Ext: muscle strength 5 out of 5 in all 4 extremities grossly, no gross muscle atrophy, no contractures, Neuro: CN II-XI grossly intact, no gross focal neuro deficits Psych: Alert, oriented, appropriate affect A total of 33 minutes of time were spent preparing this complex discharge summary. Patient was discharged on 02/24/2024 at 941. I have seen and evaluated the patient today. Discussed with the resident and agree with the residents finding and plan as documented in the resident's note. Changes highlighted in blue font. Patient Condition at Discharge: Stable Plan - Discharge Summary Discharge Rx Participant: Yes New Discharge Prescriptions: New Spironolactone [Aldactone] 25 mg PO DAILY #30 tab Apixaban [Eliquis] 5 mg PO BID #60 tab Atorvastatin [Lipitor] 80 mg PO DAILY #30 tab Nitroglycerin Sl Tabs [Nitrostat] 0.4 mg SUBLINGUAL Q5M PRN #25 tab PRN Reason: Chest Pain Metoprolol Succinate (ER) [Toprol XL] 25 mg PO DAILY #30 tab Sacubitril/Valsartan [Entresto 24 mg-26 mg Tablet] 1 each PO BID #60 tab Clopidogrel [Plavix] 75 mg PO DAILY #30 tab Dapagliflozin Propanediol [Farxiga] 10 mg PO DAILY #60 tablet Discharge Medication List Apixaban [Eliquis] 5 mg PO BID #60 tab 02/24/24 [Rx] Atorvastatin [Lipitor] 80 mg PO DAILY #30 tab 02/24/24 [Rx] Clopidogrel [Plavix] 75 mg PO DAILY #30 tab 02/24/24 [Rx] Dapagliflozin Propanediol [Farxiga] 10 mg PO DAILY #60 tablet 02/24/24 [Rx] Metoprolol Succinate (ER) [Toprol XL] 25 mg PO DAILY #30 tab 02/24/24 [Rx] Nitroglycerin Sl Tabs [Nitrostat] 0.4 mg SUBLINGUAL Q5M PRN #25 tab 02/24/24 [Rx] Sacubitril/Valsartan [Entresto 24 mg-26 mg Tablet] 1 each PO BID #60 tab 02/24/24 [Rx] Spironolactone [Aldactone] 25 mg PO DAILY #30 tab 02/24/24 [Rx] Follow up Appointment(s)/Referral(s): Avinash Mendoza MD [Medical Doctor] - 1 Week (office will call you with an appointment and also let you know if they have Farxiga samples to give you ) Bruno Sams MD [RESIDENT] - 03/08/24 3:00 pm ([facility] Address: [address] [place] [id number] ) Patient Instructions/Handouts: Heart Attack (DC), Heart Healthy Diet (DC), After Radial Heart Catheterization (GEN) Activity/Diet/Wound Care/Special Instructions: *Have send indigent funds for prescriptions at discharge Patient will need to contact seismograph operator office to see if they have samples of Farxiga as we could not get it covered under indigent funds Discharge Disposition: HOME SELF-CARE
== END 2024-02-24 11:58 | disposition home or self-care (01) | DRG 280 ==
LOC: EC 13:37 → 3SCARD 14:49 → 2SICU 18:30 → 3SCARD 02-23 18:23
PROVIDERS: ADMIT Student in an Organized Health Care Education/Training Program; ATTEND Student in an Organized Health Care Education/Training Program
PROC: B2111ZZ Fluoroscopy of Multiple Coronary Arteries using Low Osmolar Contrast (ICD-10-PCS; 2024-02-19)
PROC: B2151ZZ Fluoroscopy of Left Heart using Low Osmolar Contrast (ICD-10-PCS; 2024-02-19)
PROC: 4A023N7 Measurement of Cardiac Sampling and Pressure, Left Heart, Percutaneous Approach (ICD-10-PCS; principal; 2024-02-19 07:30)
PROC: B2111ZZ Fluoroscopy of Multiple Coronary Arteries using Low Osmolar Contrast (ICD-10-PCS; 2024-02-23)
DX: I21.09 ST elevation (STEMI) myocardial infarction involving other coronary artery of anterior wall (principal); I50.23 Acute on chronic systolic (congestive) heart failure; J96.01 Acute respiratory failure with hypoxia; E87.1 Hypo-osmolality and hyponatremia; E87.20 Acidosis, unspecified; I31.39 Other pericardial effusion (noninflammatory); I25.10 Atherosclerotic heart disease of native coronary artery without angina pectoris; E03.8 Other specified hypothyroidism; F17.210 Nicotine dependence, cigarettes, uncomplicated; I11.0 Hypertensive heart disease with heart failure; I25.5 Ischemic cardiomyopathy; E87.6 Hypokalemia; D75.839 Thrombocytosis, unspecified; R73.03 Prediabetes; I27.22 Pulmonary hypertension due to left heart disease; I08.1 Rheumatic disorders of both mitral and tricuspid valves; J44.9 Chronic obstructive pulmonary disease, unspecified; K76.1 Chronic passive congestion of liver; Z95.5 Presence of coronary angioplasty implant and graft; I25.2 Old myocardial infarction; Z79.82 Long term (current) use of aspirin; Z79.899 Other long term (current) drug therapy; Z82.49 Family history of ischemic heart disease and other diseases of the circulatory system; Z91.199 Patient's noncompliance with other medical treatment and regimen due to unspecified reason
CPT/HCPCS: 36415; 71045; 80048; 80053; 80061; 82728; 82803; 83036; 83540; 83550; 83605; 83735; 83880; 84132; 84439; 84443; 84484; 85025; 85027; 85610; 85730; 86850; 86900; 86901; 87635; 93005; 93306; 93454; 93458; 94640; 94660; 96374; 99291

== ENCOUNTER → 2024-04-16 | Outpatient (CLI) | payer OTHER ==
[2024-04-16 22:44] LABS: HCT 39.6 % (39.6-50.0); HGB 12.5 g/dL (13.0-17.0); MCH 29.1 pg (27.0-32.0); MCHC 31.6 g/dL (32.0-37.0); MCV 92.3 FL (80.0-97.0); Mean Platelet Volume 10.5 FL (9.5-12.2); NRBC Per 100 WBC 0 X 10*3/uL (0.00-0.01); Platelet Count 419 X 10*3/uL (140-440); RBC 4.29 X 10*6/uL (4.40-5.60); RDW 18.2 % (11.5-14.5); WBC 7.95 X 10*3/uL (4.50-10.00)
[2024-04-16 22:55] LABS: NT-Pro-B-Type Natriuretic Pept 16506 pg/mL (0-125)
[2024-04-16 23:04] LABS: ALT 28 U/L (10-49); AST 24 U/L (14-35); Alkaline Phosphatase 86 U/L (41-126); Blood Urea Nitrogen 13.3 mg/dL (9.0-27.0); Calcium 9.4 mg/dL (8.7-10.3); Carbon Dioxide 25.3 mmol/L (21.6-31.8); Chloride 106 mmol/L (96-109); Chol/HDL Ratio 5.12 Ratio; Globulin 2.5 g/dL (1.6-3.3); Glucose 103 mg/dL (70-110); LDL Cholesterol,Calculated 133.5 mg/dL (0.0-131.0); Potassium 3.4 mmol/L (3.5-5.5); Sodium 142 mmol/L (135-145); Total Bilirubin 0.7 mg/dL (0.3-1.2); Total Protein 6.5 g/dL (6.2-8.2)
== END | disposition home or self-care (01) ==
LOC: LABWHC1 08:46
PROVIDERS: ATTEND Student in an Organized Health Care Education/Training Program
DX: Z13.6 Encounter for screening for cardiovascular disorders (principal); I50.9 Heart failure, unspecified; D72.9 Disorder of white blood cells, unspecified; E11.9 Type 2 diabetes mellitus without complications; E78.5 Hyperlipidemia, unspecified; E03.9 Hypothyroidism, unspecified; R79.89 Other specified abnormal findings of blood chemistry
CPT/HCPCS: 36415; 80053; 80061; 83036; 83880; 85027

== ENCOUNTER 2024-08-24 14:16 | Inpatient (IN) | payer OTHER ==
--- NOTE | 2024-08-24 15:53 | ED ---
Skin/Abscess/FB HPI - General Source: patient, RN notes reviewed Mode of arrival: ambulatory Limitations: no limitations <Viv Lomas - Last Filed: 08/24/24 19:24> <Alec Quintana - Last Filed: 08/25/24 00:26> - General Chief complaint: Skin/Abscess/Foreign Body Stated complaint: bilat feet swelling Time Seen by Provider: 08/24/24 15:49 - History of Present Illness Initial comments: 64-year-old male with history of CHF, renal disease, CAD with stents, COPD, hypertension, DM presenting to the ER for chief complaint of bilateral lower extremity edema x 1 week. Reports there is fluid draining from bilateral legs and feet and he has left foot blisters and bilateral ulcerations on the dorsal feet. Also reports discoloration of the toes for approximately 1 week. Denies chest pain or shortness of breath. He states he believes this is from an allergic reaction to Aleve as he took 4 Aleve's for pain 3 days ago. He takes Eliquis and Plavix. He takes Bumex for edema. (Viv Lomas) - Related Data Home Medications Medication Instructions Recorded Confirmed Aspirin 81 mg PO DAILY 08/24/24 08/24/24 Atorvastatin [Lipitor] 80 mg PO HS 08/24/24 08/24/24 Bumetanide [Bumex] 1 mg PO BID 08/24/24 08/24/24 Empagliflozin [Jardiance] 10 mg PO DAILY 08/24/24 08/24/24 Metoprolol Succinate (ER) [Toprol 25 mg PO BID 08/24/24 08/24/24 XL] Naproxen Sodium [Aleve] 220 - 440 mg PO BID PRN 08/24/24 08/24/24 Nitroglycerin Sl Tabs [Nitrostat] 0.4 mg SL Q5M PRN 08/24/24 08/24/24 Previous Rx's Medication Instructions Recorded Apixaban [Eliquis] 5 mg PO BID #60 tab 02/24/24 Clopidogrel [Plavix] 75 mg PO DAILY #30 tab 02/24/24 Spironolactone [Aldactone] 25 mg PO DAILY #30 tab 02/24/24 Vericiguat [Verquvo] 2.5 mg PO DAILY 90 Days #90 tablet 03/26/25 Allergies Allergy/AdvReac Type Severity Reaction Status Date / Time No Known Allergies Allergy Verified 08/24/24 19:20 Review of Systems ROS Other: All systems not noted in ROS Statement are negative. <Viv Lomas - Last Filed: 08/24/24 19:24> ROS Other: All systems not noted in ROS Statement are negative. <Alec Quintana - Last Filed: 08/25/24 00:26> ROS Statement: Those systems with pertinent positive or pertinent negative responses have been documented in the HPI. Past Medical History Past Medical History: Coronary Artery Disease (CAD), COPD, Hypertension, Myocardial Infarction (ID) Additional Past Medical History / Comment(s): kidney stone History of Any Multi-Drug Resistant Organisms: None Reported Past Surgical History: Heart Catheterization With Stent, Tonsillectomy Past Anesthesia/Blood Transfusion Reactions: No Reported Reaction Date of Last Stent Placement:: 1989 Past Psychological History: No Psychological Hx Reported Smoking Status: Current every day smoker Past Alcohol Use History: None Reported Past Drug Use History: Marijuana - Past Family History Mother Additional Family Medical History / Comment(s): heart issues- from myocard ial infarction at 67 years old Father Additional Family Medical History / Comment(s): of pancreatitis-alcoholic <Viv Lomas - Last Filed: 08/24/24 19:24> General Exam Limitations: no limitations General appearance: alert, in no apparent distress Head exam: Present: atraumatic, normocephalic, normal inspection Eye exam: Present: normal appearance, PERRL, EOMI. Absent: scleral icterus, conjunctival injection, periorbital swelling Respiratory exam: Present: normal lung sounds bilaterally. Absent: respiratory distress, wheezes, rales, rhonchi, stridor Cardiovascular Exam: Present: regular rate, normal rhythm, normal heart sounds. Absent: systolic murmur, diastolic murmur, rubs, gallop, clicks GI/Abdominal exam: Present: soft, normal bowel sounds. Absent: distended, tenderness, guarding, rebound, rigid Extremities exam: Present: full ROM, normal capillary refill. Absent: normal inspection (3+ pitting edema bilaterally. There is a grade 1 ulceration present on dorsal aspect of left foot and fluid-filled bullae on the lateral aspect of dorsal left foot. Diffuse pale becerra coloring to all lower extremity digits bilateral), tenderness, pedal edema, joint swelling, calf tenderness Neurological exam: Present: alert, oriented X3 Psychiatric exam: Present: normal affect, normal mood Skin exam: Present: warm, dry, intact, normal color. Absent: rash <Viv Lomas - Last Filed: 08/24/24 19:24> Course Vital Signs 08/24/24 08/24/24 08/24/24 14:24 18:11 19:20 Temperature 97.6 F 97.6 F Pulse Rate 95 95 96 Respiratory 17 19 16 Rate Blood Pressure 96/66 108/74 92/70 O2 Sat by Pulse 100 99 98 Oximetry 08/24/24 19:39 Temperature Pulse Rate 92 Respiratory 18 Rate Blood Pressure 113/76 O2 Sat by Pulse 97 Oximetry Medical Decision Making - Lab Data Result diagrams: 08/24/24 16:12 08/24/24 16:12 - EKG Data -: EKG Interpreted by Me <Viv Lomas - Last Filed: 08/24/24 19:24> - Lab Data Result diagrams: 08/24/24 16:12 08/24/24 16:12 - EKG Data -: EKG Interpreted by Me <Alec Quintana - Last Filed: 08/25/24 00:26> - Medical Decision Making Was pt. sent in by a medical professional or institution ([facility], [facility], urgent care, hospital, or assisted...) When possible be specific @ -No Did you speak to anyone other than the patient for history (EMS, parent, family, police, friend...)? What history was obtained from this source @ -No Did you review nursing and triage notes (agree or disagree)? Why? @ -I reviewed and agree with nursing and triage notes Were old charts reviewed (outside hosp., previous admission, EMS record, old EKG, old radiological studies, urgent care reports/EKG's, assisted records)? Report findings @ -No old charts were reviewed Differential Diagnosis (chest pain, altered mental status, abdominal pain women, abdominal pain men, vaginal bleeding, weakness, fever, dyspnea, syncope, headache, dizziness, GI bleed, back pain, seizure, CVA, palpatations, mental health, musculoskeletal)? @ -Differential Musculoskeletal Muscular strain, contusion, ligament sprain, fracture, arthritis, septic a rthritis, bursitis, cellulitis, muscle spasm, nerve compression, DVT, arterial occlusion, herpes zoster, electrolyte abnormality, tumor.... This is not meant to be in all inclusive list EKG interpreted by me (3pts min.). @ -As above X-rays interpreted by me (1pt min.). @ -Chest x-ray reveals CHF exacerbation/fluid overload state CT interpreted by me (1pt min.). @ -None done U/S interpreted by me (1pt. min.). @ -None done What testing was considered but not performed or refused? (CT, X-rays, U/S, labs)? Why? @ -None What meds were considered but not given or refused? Why? @ -None Did you discuss the management of the patient with other professionals (professionals i.e. , PA, WOODWORK TEACHER, lab, RT, psych nurse, geriatric social work professor, director of volunteer services, teacher, commanding officer motorized squad, comp field case manager)? Give summary @ -Dr. Quintana discussed case with stunt person Dr. Mendoza who feels patient's EKG shows worsening changes and will take patient to [facility] Was smoking cessation discussed for >3mins.? @ -No Was critical care preformed (if so, how long)? @ -Yes, 45 minutes Were there social determinants of health that impacted care today? How? (Homelessness, low income, unemployed, alcoholism, drug addiction, transportation, low edu. Level, literacy, decrease access to med. care, nursing home, rehab)? @ -No Was there de-escalation of care discussed even if they declined (Discuss DNR or withdrawal of care, Hospice)? DNR status @ -No What co-morbidities impacted this encounter? (DM, HTN, Smoking, COPD, CAD, Cancer, CVA, ARF, Chemo, Hep., AIDS, mental health diagnosis, sleep apnea, morbid obesity)? @ -None Was patient admitted / discharged? Hospital course, mention meds given and route, prescriptions, significant lab abnormalities, going to OR and other pertinent info. @ - admitted. 64-year-old male presenting for bilateral lower extremity edema x 1 week. He is on Eliquis and Plavix. Denies chest pain or shortness of breath. There is 3+ pitting edema bilaterally. Neurovascularly intact in the bilateral lower extremities. White blood cell count is elevated at 15.2, troponin 0.190 although appears to be chronically elevated, BNP 14,500, INR 1.3, BUN 43, ALT 112, alk phos 206, normal lactic 1.2. Urinalysis highly indicative of a urinary tract infection. Patient was provided with dose of Bumex. EKG reveals changes concerning for ischemia of LAD, Dr. Mendoza was contacted by Dr. Quintana who will take patient to [facility] for diagnosis of NSTEMI with patient. Discussed diagnosis of CHF exacerbation and NSTEMI. Patient will be started on low-dose heparin, loading dose aspirin, scheduled IV Lasix, and IV Rocephin for UTI. Patient will be admitted to medicine. Case was discussed with my ED attending Dr. Quintana. Undiagnosed new problem with uncertain prognosis? @ -No Drug Therapy requiring intensive monitoring for toxicity (Heparin, Nitro, Insulin, Cardizem)? @ -Heparin Were any procedures done? @ -No Diagnosis/symptom? @ -CHF exacerbation, NSTEMI Acute, or Chronic, or Acute on Chronic? @ -Acute Uncomplicated (without systemic symptoms) or Complicated (systemic symptoms)? @ -Complicated Side effects of treatment? @ -No Exacerbation, Progression, or Severe Exacerbation? @ -Exacerbation Poses a threat to life or bodily function? How? (Chest pain, USA, ID, pneumonia, PE, COPD, DKA, ARF, appy, cholecystitis, CVA, Diverticulitis, Homicidal, Suicidal, threat to staff... and all critical care pts) @ -Yes (Viv Lomas) Patient is a 64-year-old male who is being evaluated by midlevel provider. Patient presented for lower extremity pitting edema as well as concern for possible allergic reaction to an NSAID at home. He is in no respiratory distress. Denies any cough or orthopnea. Endorses worsening lower extremity pitting edema. Questionable compliance with medications. Has a history significant for CAD, COPD, hypertension, numerous cardiac stents, severe ischemic cardiomyopathy, prior apical thrombus of his heart, severe multivessel coronary artery disease. Workup was essentially completed when I was given the EKG at approximately 1800. EKG was read by the machine as showing possible STEMI. On evaluation of prior EKGs from January 2024, patient does have a history of abnormal ST segment elevations in the anterior precordial leads however they do seem somewhat worse today. I did order repeat EKG which redemonstrated the same findings. Patient was evaluated by myself at bedside. He declines any chest pain. States he has noticed lower extremity swelling over the last week. Denies any shortness of breath, nausea, vomiting, diaphoresis. He has no typical ACS symptoms at this time. Due to the question of compliance of medications, patient was initiated on a heparin drip as well as given 324 mg of aspirin. I recommended they start Lasix therapy for CHF. Midlevel provider was in agreement this plan. At this time, I did reach out to on-call cardiology, Dr. Mendoza for evaluation. Initial page was at approximately 1825. Decision not made to activate as a STEMI as the patient has no typical ACS symptoms and has the same ST segment elevations chronically although today they do seem slightly worsened. I did discuss the case with Dr. Mendoza we did review the EKGs that I sent him. He was in agreement that the ST segment elevations do seem worse when compared with prior EKGs. He was in agreement with the plan for treatment as an NSTEMI however he will take the patient to cardiac catheterization due to the EKG findings. I did update the patient and he was in agreement with this plan. Patient was dispositioned to the cardiac catheterization suite. I spoke with [facility] who accepted the admission. (Alec Quintana) - Lab Data Lab Results 08/24/24 08/24/24 08/24/24 Range/Units 16:12 16:12 16:12 WBC 15.2 H (3.8-10.6) k/uL RBC 4.40 (4.30-5.90) m/uL Hgb 12.9 L (13.0-17.5) gm/dL Hct 41.9 (39.0-53.0) % MCV 95.1 (80.0-100.0) fL MCH 29.3 (25.0-35.0) pg MCHC 30.8 L (31.0-37.0) g/dL RDW 17.8 H (11.5-15.5) % Plt Count 333 (150-450) k/uL MPV 7.4 Neutrophils % 89 % Lymphocytes % 4 % Monocytes % 5 % Eosinophils % 1 % Basophils % 0 % Neutrophils # 13.6 H (1.3-7.7) k/uL Lymphocytes # 0.6 L (1.0-4.8) k/uL Monocytes # 0.7 (0-1.0) k/uL Eosinophils # 0.2 (0-0.7) k/uL Basophils # 0.0 (0-0.2) k/uL Hypochromasia Marked Anisocytosis Slight PT 14.2 H (10.0-12.5) sec INR 1.3 H (<1.2) APTT 24.4 (22.0-30.0) sec Sodium 130 L (137-145) mmol/L Potassium 3.6 (3.5-5.1) mmol/L Chloride 92 L (98-107) mmol/L Carbon Dioxide 29 (22-30) mmol/L Anion Gap 9 mmol/L BUN 43 H (9-20) mg/dL Creatinine 1.19 (0.66-1.25) mg/dL Est GFR (CKD-EPI)AfAm 75 (>60 ml/min/1.73 sqM) Est GFR (CKD-EPI)NonAf 65 (>60 ml/min/1.73 sqM) Glucose 80 (74-99) mg/dL Plasma Lactic Acid Lauro (0.7-2.0) mmol/L Calcium 9.3 (8.4-10.2) mg/dL Total Bilirubin 2.2 H (0.2-1.3) mg/dL AST 38 (17-59) U/L ALT 112 H (4-49) U/L Alkaline Phosphatase 206 H (38-126) U/L Troponin I (0.000-0.034) ng/mL NT-Pro-B Natriuret Pep 08432 pg/mL Total Protein 6.5 (6.3-8.2) g/dL Albumin 3.6 (3.5-5.0) g/dL Urine Color Urine Appearance (Clear) Urine pH (5.0-8.0) Ur Specific [place] (1.001-1.035) Urine Protein (Negative) Urine Glucose (UA) (Negative) Urine Ketones (Negative) Urine Blood (Negative) Urine Nitrite (Negative) Urine Bilirubin (Negative) Urine Urobilinogen (<2.0) mg/dL Ur Leukocyte Esterase (Negative) Urine RBC (0-5) /hpf Urine WBC (0-5) /hpf Urine WBC Clumps (None) /hpf Urine Bacteria (None) /hpf Urine Mucus (None) /hpf 03/08/24/24 08/24/24 Range/Units 16:12 16:12 18:06 WBC (3.8-10.6) k/uL RBC (4.30-5.90) m/uL Hgb (13.0-17.5) gm/dL Hct (39.0-53.0) % MCV (80.0-100.0) fL MCH (25.0-35.0) pg MCHC (31.0-37.0) g/dL RDW (11.5-15.5) % Plt Count (150-450) k/uL MPV Neutrophils % % Lymphocytes % % Monocytes % % Eosinophils % % Basophils % % Neutrophils # (1.3-7.7) k/uL Lymphocytes # (1.0-4.8) k/uL Monocytes # (0-1.0) k/uL Eosinophils # (0-0.7) k/uL Basophils # (0-0.2) k/uL Hypochromasia Anisocytosis PT (10.0-12.5) sec INR (<1.2) APTT (22.0-30.0) sec Sodium (137-145) mmol/L Potassium (3.5-5.1) mmol/L Chloride (98-107) mmol/L Carbon Dioxide (22-30) mmol/L Anion Gap mmol/L BUN (9-20) mg/dL Creatinine (0.66-1.25) mg/dL Est GFR (CKD-EPI)AfAm (>60 ml/min/1.73 sqM) Est GFR (CKD-EPI)NonAf (>60 ml/min/1.73 sqM) Glucose (74-99) mg/dL Plasma Lactic Acid Lauro 1.2 (0.7-2.0) mmol/L Calcium (8.4-10.2) mg/dL Total Bilirubin (0.2-1.3) mg/dL AST (17-59) U/L ALT (4-49) U/L Alkaline Phosphatase (38-126) U/L Troponin I 0.190 H* (0.000-0.034) ng/mL NT-Pro-B Natriuret Pep pg/mL Total Protein (6.3-8.2) g/dL Albumin (3.5-5.0) g/dL Urine Color Yellow Urine Appearance Cloudy (Clear) Urine pH 5.5 (5.0-8.0) Ur Specific [place] 1.020 (1.001-1.035) Urine Protein 1+ H (Negative) Urine Glucose (UA) Negative (Negative) Urine Ketones Negative (Negative) Urine Blood Large H (Negative) Urine Nitrite Negative (Negative) Urine Bilirubin Negative (Negative) Urine Urobilinogen 3.0 (<2.0) mg/dL Ur Leukocyte Esterase Large H (Negative) Urine RBC 86 H (0-5) /hpf Urine WBC >182 H (0-5) /hpf Urine WBC Clumps Few H (None) /hpf Urine Bacteria Occasional H (None) /hpf Urine Mucus Rare H (None) /hpf - EKG Data EKG Comments: 12-lead Electrocardiogram Interpretation Note EKG was reviewed and interpreted by myself. 12-lead ECG performed at 1636, but interpreted by me at 1800 when I was shown it is interpreted by me as revealing normal sinus rhythm at a rate of 95 beats per minute. Indeterminate axis. WI interval is 180 ms, QRS durations 136 ms, QTc is 419 ms.. Acute on chronic ST segment elevations leads V3 through V5 which seems worse than normal. 12-lead Electrocardiogram Interpretation Note EKG was reviewed and interpreted by myself. 12-lead ECG performed at 1802 is interpreted by me as revealing normal sinus rhythm at a rate of 96 beats per minute. Left axis deviation. WI interval is 211 ms, QRS duration is 141 ms, QTc is 424 ms.. Acute on chronic ST segment elevations in leads V2 through V5 compared with EKGs from January 2024. Today's do seem acutely worsen. No significant reciprocal changes appreciated. . . (Alec Quintana) Disposition Time of Disposition: 19:22 <Viv Lomas - Last Filed: 08/24/24 19:24> <Alec Quintana - Last Filed: 08/25/24 00:26> Clinical Impression: Acute exacerbation of CHF (congestive heart failure), NSTEMI (non-ST elevated myocardial infarction) Disposition: ADMITTED IP TO THIS HOSP
[2024-08-24 16:38] LABS: Anisocytosis Slight; Basophils % (A) 0 %; Eosinophils # (A) 0.2 k/uL (0-0.7); Eosinophils % (A) 1 %; HCT 41.9 % (39.0-53.0); HGB 12.9 gm/dL (13.0-17.5); Hypochromasia Marked; Lymphocytes # (A) 0.6 k/uL (1.0-4.8); Lymphocytes % (A) 4 %; MCH 29.3 pg (25.0-35.0); MCHC 30.8 g/dL (31.0-37.0); MCV 95.1 fL (80.0-100.0); Mean Platelet Volume 7.4; Monocytes # (A) 0.7 k/uL (0-1.0); Monocytes % (A) 5 %; Neutrophils # (A) 13.6 k/uL (1.3-7.7); Neutrophils % (A) 89 %; Platelet Count 333 k/uL (150-450); RDW 17.8 % (11.5-15.5); WBC 15.2 k/uL (3.8-10.6)
[2024-08-24 16:41] LABS: Appearance,Urine Cloudy (Clear); Bacteria,Urine Occasional /hpf; Bilirubin,Urine Negative (Negative); Blood,Urine Large (Negative); Color,Urine Yellow; Glucose,Urine (UA) Negative (Negative); Ketones,Urine Negative (Negative); Leukocyte Esterase,Urine Large (Negative); Mucus,Urine Rare /hpf; Nitrite,Urine Negative (Negative); PH, Urine 5.5 (5.0-8.0); Protein,Urine 1+ (Negative); RBC,Urine 86 /hpf (0-5); WBC,Urine >182 /hpf (0-5)
[2024-08-24 16:44] LABS: INR 1.3 (<1.2); Partial Thromboplastin Time 24.4 sec (22.0-30.0); Prothrombin Time 14.2 sec (10.0-12.5)
[2024-08-24 16:47] LABS: ALT 112 U/L (4-49); AST 38 U/L (17-59); African American GFR (CKD) 75 (>60 ml/min/1.73 sqM); Albumin 3.6 g/dL (3.5-5.0); Alkaline Phosphatase 206 U/L (38-126); Anion Gap 9 mmol/L; Blood Urea Nitrogen 43 mg/dL (9-20); Calcium 9.3 mg/dL (8.4-10.2); Carbon Dioxide 29 mmol/L (22-30); Chloride 92 mmol/L (98-107); Glucose 80 mg/dL (74-99); Non-African American GFR(CKD) 65 (>60 ml/min/1.73 sqM); Potassium 3.6 mmol/L (3.5-5.1); Sodium 130 mmol/L (137-145); Total Bilirubin 2.2 mg/dL (0.2-1.3); Total Protein 6.5 g/dL (6.3-8.2)
--- NOTE | 2024-08-24 16:49 | XR ---
EXAMINATION TYPE: XR chest 2V DATE OF EXAM: 08/24/2024 CLINICAL INDICATION: Male, 64 years old with history of Bilateral lower extremity edema, TECHNIQUE: Frontal and lateral views of the chest are obtained. COMPARISON: Chest x-ray February 19, 2024 FINDINGS: Persistent cardiomegaly. There is loss prominent but persistent central vascular congestion with tiny bilateral pleural effusions. The osseous structures are intact. IMPRESSION: Findings suggest CHF exacerbation/fluid overload state though the findings are noted less prominent versus most recent x-ray. [facility], , 08/24/2024 4:46 PM
[2024-08-24 16:55] LABS: NT-Pro-B-Type Natriuretic Pept 14500 pg/mL
[2024-08-24] MEDS: BUMETANIDE 0.25 MG/ML 10 ML VIAL IV STA (18:04)
[2024-08-24] MEDS ORDERED: HEPARIN SODIUM 1,000 UN/ML (10ML VL) IV PRN (18:34)
[2024-08-24] MEDS: HEPARIN SODIUM 1,000 UN/ML (10ML VL) IV ONE (19:11)
[2024-08-24] MEDS: HEPARIN SOD,PORK IN 0.45% NACL 25,000 UNIT in 0.45% NACL 1 250ML.BAG IV SCH (19:12)
[2024-08-24] MEDS: ASPIRIN 81 MG PO STA (19:15)
[2024-08-24] MEDS ORDERED: NALOXONE 0.4 MG/ML 1 ML VIAL IV PRN (19:19)
[2024-08-24] MEDS ORDERED: ONDANSETRON 4 MG/2 ML VIAL IVP PRN (19:19)
[2024-08-24] MEDS ORDERED: HYDROmorphone 0.5 MG/0.5 ML SYRINGE IVP PRN (19:19)
[2024-08-24] MEDS ORDERED: LACTATED RINGERS 1,000 ML IV SCH (19:45)
[2024-08-24] MEDS: MIDAZOLAM 2 MG/2 ML VIAL IVP ONE (20:05)
[2024-08-24] MEDS: fentaNYL (PF) 50 MCG/ML 2 ML AMP IVP ONE (20:05)
[2024-08-24] MEDS: LIDOCAINE 1% INJ 10MG/ML (20 ML MDV) SQ ONE (20:07)
--- NOTE | 2024-08-24 20:07 | P.CRDCN ---
History of Present Illness Consult date: 08/24/24 History of present illness: HISTORY OF PRESENTING ILLNESS: Patient is a 64-year-old male with severe ischemic cardiomyopathy, apical thrombus, severe multivessel coronary artery disease, noncompliance, tobacco and marijuana smoking. In January 2024 patient presented to [facility] with increased shortness of breath diaphoresis nausea for 24 hours. Patient reports that his symptoms somewhat started like a week ago. On admission his EKG showed sinus tachycardia with Q waves in anteroseptal leads along with evolving ST elevation in anteroseptal leads suggestive of late presenting anteroseptal RI. Echocardiogram showed an EF of 25 to 30% with apical hypokinesia with layered apical thrombus. RV dilatation with small pericardial effusion was noticed. He was taken to the [facility] which showed 100% mid LAD thrombotic occlusion with no collaterals, 80% OM1 disease, 80% diffuse distal LCx disease, 40% diffuse RCA disease, 80% proximal superior branch of PDA disease. He was optimized with medical management for congestive heart failure and surgical opinion was obtained. Patient was denied by surgery because of his high surgical risk. He had a staged PCI for attempted LCx intervention however on repeat cath the OM disease appeared to have resolved with only residual 20% disease. Patient was eventually discharged home with continued inflammation therapy for congestive heart failure and CAD management. He followed up with Dr. Mendoza on outpatient basis however he missed his appointments and was not very compliant with his medications. He also did not participate in cardiac rehab. Apparently patient was at [facility] when he had symptoms of substernal chest pressure. He was taken to the emergency department where STEMI was diagnosed and patient was taken to the [facility]. Apparently patient had PCI of his mid LAD by Dr. Kumar. This time presented to the hospital because of increased worsening lower extremity edema. On admission his EKG showed new ST elevations with Q waves in lateral leads V3, V4, V5 which appears to be more pronounced as compared to the older EKG from January. Admission Vitals: 99 over 66 mmHg, heart rate 95 bpm, afebrile Admission Labs: Hb 12.9, BUN 43, creatinine 1.19, ALP 206, AST 112, troponin 0.19, NT-proBNP 14,500 Admission EKG: Sinus tachycardia with Q waves in inferior lead anteroseptal leads and lateral leads, ST elevations in lateral leads V4 V5 Imaging: Chest x-ray shows cardiomegaly with mild pulmonary congestion. Prior cardiac testing: Echo 01/2024 shows an EF of 25 to 30%, apical thrombus, severe pulmonary hypertension RVSP 65 mmHg Cardiac cath 02/18/2024 late presenting STEMI, 100% thrombotic mid LAD stenosis, RAN 0 flow, 80% OM1 thrombotic occlusion, distal LCx diffuse 80% disease. 40% diffuse RCA disease, 80 to 90% proximal superior PDA branch stenosis. Cardiac cath 02/23/2024, repeat heart cath for staged PCI of OM1 after being decline from surgery. Repeat heart cath showed resolution of 80% OM1 disease which was most likely thrombotic with residual 20% disease. Distal LCx appears to have 60% diffuse disease and appeared to be a millimeter vessel. No inter vention was performed. REVIEW OF SYSTEMS: 14 point review of system is negative except what is mentioned above in HPI. PHYSICAL EXAMINATION: Neck: Brisk carotid upstroke, no jugular venous distention. Lungs: Clear to auscultation. Heart: Regular rate and rhythm, S1-S2, , no murmur or rub. Abdomen: Soft nontender, positive bowel sounds. Extremities: No edema, intact distal pulses. Neuro: Alert, oritented, no focal deficits. Detailed neuro exam was not performed. ASSESSMENT: # [ ] # [ ] # [ ] # [ ] PLAN: [ ] Avinash Mendoza MD, FACC, RPVI Thank you for allowing [facility] to participate in this patient's care. Feel free to reach out in case of any followup questions. Past Medical History Past Medical History: Coronary Artery Disease (CAD), COPD, Hypertension, Myocardial Infarction (RI) Additional Past Medical History / Comment(s): kidney stone History of Any Multi-Drug Resistant Organisms: None Reported Past Surgical History: Heart Catheterization With Stent, Tonsillectomy Past Anesthesia/Blood Transfusion Reactions: No Reported Reaction Date of Last Stent Placement:: 1989 Past Psychological History: No Psychological Hx Reported Smoking Status: Current every day smoker Past Alcohol Use History: None Reported Past Drug Use History: Marijuana - Past Family History Mother Additional Family Medical History / Comment(s): heart issues- from myocardial infarction at 67 years old Father Additional Family Medical History / Comment(s): of pancreatitis-alcoholic Medications and Allergies Home Medications Medication Instructions Recorded Confirmed Type Apixaban [Eliquis] 5 mg PO BID #60 tab 09/25/24 03/26/25 Rx Clopidogrel [Plavix] 75 mg PO DAILY #30 tab 02/24/24 08/24/24 Rx Spironolactone [Aldactone] 25 mg PO DAILY #30 tab 02/24/24 08/24/24 Rx Aspirin 81 mg PO DAILY 08/24/24 08/24/24 History Atorvastatin [Lipitor] 80 mg PO HS 08/24/24 08/24/24 History Bumetanide [Bumex] 1 mg PO BID 08/24/24 08/24/24 History Empagliflozin [Jardiance] 10 mg PO DAILY 08/24/24 08/24/24 History Metoprolol Succinate (ER) [Toprol 25 mg PO BID 08/24/24 08/24/24 History XL] Naproxen Sodium [Aleve] 220 - 440 mg PO BID PRN 08/24/24 08/24/24 History Nitroglycerin Sl Tabs [Nitrostat] 0.4 mg SL Q5M PRN 08/24/24 08/24/24 History Allergies Allergy/AdvReac Type Severity Reaction Status Date / Time No Known Allergies Allergy Verified 08/24/24 19:20 Physical Exam Vitals: Vital Signs Temp Pulse Resp BP Pulse Ox 08/24/24 19:39 92 18 113/76 97 08/24/24 19:20 96 16 92/70 98 08/24/24 18:11 97.6 F 95 19 108/74 99 08/24/24 14:24 97.6 F 95 17 96/66 100 Intake and Output 08/24/24 08/24/24 08/24/24 06:59 14:59 22:59 Other: Weight 72.575 kg Results 08/24/24 16:12 08/24/24 16:12 Cardiac Enzymes 08/24/24 08/24/24 Range/Units 16:12 16:12 AST 38 (17-59) U/L Troponin I 0.190 H* (0.000-0.034) ng/mL Coagulation 08/24/24 Range/Units 16:12 PT 14.2 H (10.0-12.5) sec APTT 24.4 (22.0-30.0) sec CBC 08/24/24 Range/Units 16:12 WBC 15.2 H (3.8-10.6) k/uL RBC 4.40 (4.30-5.90) m/uL Hgb 12.9 L (13.0-17.5) gm/dL Hct 41.9 (39.0-53.0) % Plt Count 333 (150-450) k/uL Comprehensive Metabolic Panel 08/24/24 Range/Units 16:12 Sodium 130 L (137-145) mmol/L Potassium 3.6 (3.5-5.1) mmol/L Chloride 92 L (98-107) mmol/L Carbon Dioxide 29 (22-30) mmol/L BUN 43 H (9-20) mg/dL Creatinine 1.19 (0.66-1.25) mg/dL Glucose 80 (74-99) mg/dL Calcium 9.3 (8.4-10.2) mg/dL AST 38 (17-59) U/L ALT 112 H (4-49) U/L Alkaline Phosphatase 206 H (38-126) U/L Total Protein 6.5 (6.3-8.2) g/dL Albumin 3.6 (3.5-5.0) g/dL Current Medications Generic Name Dose Route Start Last Admin Trade Name Freq PRN Reason Stop Dose Admin Furosemide 40 mg 08/25/24 06:00 Furosemide 10 Mg/Ml 4 Ml Vial IV Q12H [facility] Heparin Sodium (Porcine) 0 unit 08/24/24 18:34 Heparin Sodium 1,000 Un/Ml (10ml Vl) IV PER PROTOCOL PRN Low PTT Protocol Hydromorphone HCl 0.5 mg 08/24/24 19:19 Hydromorphone 0.5 Mg/0.5 Ml Syringe IVP Q3HR PRN Moderate Pain (Scale 4 to 6) Heparin Sodium/Sodium Chloride 250 mls @ 8.709 mls/hr 08/24/24 18:45 08/24/24 19:12 25,000 unit/ Sodium Chloride IV 12 units/kg/hr .Q24H RICK 8.709 mls/hr Administration Protocol 12 UNITS/KG/HR Morphine Sulfate 4 mg 08/24/24 19:19 Morphine Sulfate 4 Mg/Ml Syringe IV Q4HR PRN Severe Pain (Scale 7 to 10) Naloxone HCl 0.2 mg 08/24/24 19:19 Naloxone 0.4 Mg/Ml 1 Ml Vial IV Q2M PRN Opioid Reversal Ondansetron HCl 4 mg 08/24/24 19:19 Ondansetron 4 Mg/2 Ml Vial IVP Q8HR PRN Nausea And Vomiting Intake and Output 08/24/24 08/24/24 08/24/24 06:59 14:59 22:59 Other: Weight 72.575 kg Patient Weight 08/25/24 06:59 Weight 72.575 kg 08/24/24 16:12 08/24/24 16:12
[2024-08-24] MEDS: HEPARIN SODIUM,PORCINE (1 ML) 2,500 UNIT in SODIUM CHLORIDE 0.9% 250 ML IRRIGATION ONE (20:19)
[2024-08-24] MEDS: HEPARIN SODIUM,PORCINE 10,000 UNIT in SODIUM CHLORIDE 0.9% 1,000 ML IRRIGATION ONE (20:19)
[2024-08-24] MEDS: SODIUM CHLORIDE 0.9% 1,000 ML IV ONE (20:19)
[2024-08-24] MEDS: IOPAMIDOL-370 100ML BTL INJ ONE (20:33)
[2024-08-24] MEDS ORDERED: RX INFO: IV CONTRAST WAS GIVEN 1 EACH MISC MISCELLANE PRN (21:16)
[2024-08-24] MEDS: METOPROLOL SUCCINATE (ER) 50 MG TAB.ER.24H PO SCH (22:13)
[2024-08-24] MEDS: SODIUM CHLORIDE 0.9% 1,000 ML IV SCH (22:13)
[2024-08-24] MEDS: EZETIMIBE 10 MG TAB PO SCH (22:13)
[2024-08-24] MEDS: CLOPIDOGREL 75 MG TAB PO SCH (22:13)
[2024-08-24] MEDS: SACUBITRIL/VALSARTAN 24 MG-26 MG TABLET PO SCH (22:13)
--- NOTE | 2024-08-24 22:46 | P.CARDCATH ---
Date of Procedure: 08/24/24 Description of Procedure: DIAGNOSTIC CORONARY ANGIOGRAPHY and LEFT HEART CATH REPORT PROCEDURES PERFORMED: Left heart catheterization Selective coronary angiography Moderate conscious sedation 26 mins Ultrasound assisted right common femoral access Right common femoral angiogram Angio-Seal closure 6 Turkmen INDICATION: Late presenting lateral STEMI along with acute congestive heart failure BRIEF HPI: Patient with prior history of multivessel CAD, severe ischemic cardiomyopathy presented to the hospital because of bilateral lower extremity edema not responding to diuretic therapy. On admission he had an EKG performed which showed sinus tachycardia with ST elevations in V4 and V5 along with Q waves suggestive of late presenting lateral STEMI. For this he was taken to the [facility]. CONSENT: I have explained the procedural steps of above-mentioned procedures in layman's terms to the patient. I discussed the risks (including but not limited to stroke, emergent vascular or cardiac surgery or ), benefits and alternative therapies for the above-mentioned procedure. I discussed the risks of sedation/analgesia and blood product administration (if indicated). The patient has indicated understanding and acceptance of these risks. Conscious Sedation: Patient's ECG, heart rate, blood pressure, pulse oximetry were monitored throughout the duration of procedure under my direct supervision. 1 mg Versed and 50 mcg Fentanyl were used for induction of moderate conscious sedation. Total duration of moderate concious sedation 26 minutes. PROCEDURAL DETAILS: Patient was prepped and draped in sterile fashion. 1% lidocaine was infiltrated over the right radial artery. Right radial access was obtained via modified seldinger technique. [Ultrasound was used for radial access]. There was not a good backflow once the radial artery was punctured and your ultrasound looks like radial artery appears to be sclerosed. Decision was made to proceed with right common femoral access. 1% lidocaine was infiltrated over the right common femoral artery. Ultrasound was utilized to identify the right common femoral artery and the bifurcation site. Under ultrasound guidance right common femoral access was obtained. 6 Turkmen slender sheath was advanced and flushed. Right common femoral angiogram was performed to visualize the sheath and the arteriotomy site. After confirming the appropriate arteriotomy site we proceeded with the heart catheterization procedure. Wires and Catheter used: J wire was advanced under fluroscopy to get to aortic root. 6 equatorial guinean JR 4 diagnostic catheter was utilized obtain left ventricular pressure and pressure gradint across aortic valve. 6 equatorial guinean JR 4 diagnostic catheter was used to selectively engage the right coronary ostium. 6 equatorial guinean JL 4 diagnostic catheter was utilized to selectively engage the left coronary ostium. Angiographic images were reviewed in detail. Catheter and wire were removed. Radial sheet was flushed. The femoral sheath as removed. 6 Turkmen VIP Angio-Seal was utilized to obtain the patent hemostasis. The patient tolerated the procedure well. Patient was transported back to the post catheterization holding area in stable condition. TECHNICAL DETAILS Total radiation: 98 mGy Total fluro time: 2.4 minutes Total contrast used: Isovue [60 ml] Complications: [none] Estimated Blood loss: less than 15 ml HEMODYNAMICS: Aortic Pressure: 110/70 mmHg. LV pressure: 110/10 mmHg. LVEDP 22 mmHg. There was no significant gradient across the aortic valve. SELECTIVE CORONARY ARTERIOGRAPHY: LEFT MAIN: The left main is short and large caliber vessel. It bifurcates into the LAD and circumflex. Left main appears angiographically normal. LEFT ANTERIOR DESCENDING CORONARY ARTERY: LAD is a large caliber vessel. Proximal LAD appears patent. Mid LAD has a 60 to 70% calcific eccentric stenosis at the branching site of diagonal 1 and diagonal 2. The diagonal 1 and diagonal 2 branches from the LAD and the trifurcation fashion. The diagonal 1 is a small caliber vessel. The diagonal 2 is medium caliber around 3 mm vessel. Proximal segment of diagonal 2 has diffuse 30 to 40% disease. And midportion diagonal 2 bifurcates into a superior and inferior branch. Distal LAD tapers down and appears to be 100% occluded. LEFT CIRCUMFLEX CORONARY ARTERY: It is nondominant vessel. Proximal LCx appears patent. Mid LCx has 2 overlapping stents which are extended to the OM1. The stents appear patent. OM 2 is a medium caliber vessel which appears angiographically patent. The previously visualized mid LCx is lost and is not visualized. RIGHT CORONARY ARTERY: Dominant vessel. Proximal RCA appears patent. Proximal and mid RCA #2 overlapping stent which appears patent. Distal RCA has mild luminal irregularities. Distally it bifurcates into a PDA and [address] branches. Proximal PDA has 50 to 60% disease it is a medium caliber and reaches up to the apex. The inferior branch of the 2 PL branches has 80% disease in proximal segment and is a 2 mm vessel. This is unchanged from prior catheterization from January 2024. IMPRESSION: 100% occluded mid LCx, jailed behind the LCx stent, likely the culprit 100% distal LAD occlusion, unchanged from 01/2024 60 to 70% mid LAD eccentric stenosis, unchanged from 01/2024 Patent stents in LCx and RCA 80% proximal inferior PLB, unchanged from 01/2024 PLAN: Patient's current coronary artery disease does not seem to be intervenable at this time. The 100% occluded mid LCx is noninterpretable as it is jailed. Mid LAD is a complex lesion with poor distal targets and PLB is a small caliber vessel. Plan is aggressive risk factor modification with max tolerated GDMT for CAD and CHF Recommendations Aspirin, Plavix, Eliquis for 1 week thereafter drop aspirin continue Plavix and Eliquis. On Eliquis because of layered apical thrombus in past. May consider stopping Eliquis and keeping him on aspirin and Plavix if on repeat echocardiogram there is no evidence of LV thrombus. IV Lasix 40 mg twice daily Metoprolol, Entresto, Farxiga, Monitor kidney function, and electrolytes. Consider adding Aldactone I would recommend Verquvo at the time of discharge. Pls get this patient samples/coupons. HFMS at the time of discharge Performing Physician Avinash Mendoza MD, FACC, RPVI Thank you for allowing [facility] to participate in this patient's care. Feel free to reach out in case of any followup questions.
[2024-08-25] MEDS: FUROSEMIDE 10 MG/ML 4 ML VIAL IV SCH (06:33)
[2024-08-25 08:21] LABS: Anisocytosis Slight; Basophils % (A) 0 %; Eosinophils # (A) 0.1 k/uL (0-0.7); Eosinophils % (A) 1 %; HCT 41.9 % (39.0-53.0); HGB 12.9 gm/dL (13.0-17.5); Hypochromasia Marked; Lymphocytes # (A) 0.5 k/uL (1.0-4.8); Lymphocytes % (A) 4 %; MCH 29.4 pg (25.0-35.0); MCHC 30.9 g/dL (31.0-37.0); MCV 95.2 fL (80.0-100.0); Mean Platelet Volume 7.2; Monocytes # (A) 0.6 k/uL (0-1.0); Monocytes % (A) 5 %; Neutrophils # (A) 11.2 k/uL (1.3-7.7); Neutrophils % (A) 90 %; Platelet Count 335 k/uL (150-450); RBC 4.41 m/uL (4.30-5.90); RDW 17.8 % (11.5-15.5); WBC 12.5 k/uL (3.8-10.6)
[2024-08-25 08:41] LABS: ALT 104 U/L (4-49); AST 41 U/L (17-59); African American GFR (CKD) 80 (>60 ml/min/1.73 sqM); Albumin 3.3 g/dL (3.5-5.0); Alkaline Phosphatase 144 U/L (38-126); Anion Gap 6 mmol/L; Blood Urea Nitrogen 39 mg/dL (9-20); Calcium 8.8 mg/dL (8.4-10.2); Carbon Dioxide 35 mmol/L (22-30); Chloride 94 mmol/L (98-107); Glucose 135 mg/dL (74-99); Non-African American GFR(CKD) 69 (>60 ml/min/1.73 sqM); Potassium 3.4 mmol/L (3.5-5.1); Sodium 135 mmol/L (137-145); Total Bilirubin 2.1 mg/dL (0.2-1.3); Total Protein 6.1 g/dL (6.3-8.2)
[2024-08-25] MEDS: ASPIRIN 81 MG PO SCH (09:14)
[2024-08-25] MEDS: APIXABAN 5 MG TAB PO SCH (09:14)
[2024-08-25] MEDS: DAPAGLIFLOZIN PROPANEDIOL 10 MG TABLET PO SCH (09:14)
--- NOTE | 2024-08-25 09:15 | US ---
EXAMINATION TYPE: US venous doppler duplex LE BI DATE OF EXAM: 08/24/2024 10:03 PM COMPARISON: NONE CLINICAL INDICATION: Male, 64 years old with history of DVT; Hx LLE DVT; On thinners, Pain TECHNIQUE: The lower extremity deep venous system is examined utilizing real time linear array sonog blanca with graded compression, color doppler sonography, and spectral doppler. SIDE PERFORMED: Bilateral FINDINGS: VESSELS IMAGED: Common Femoral Vein Deep Femoral Vein Greater Saphenous Vein * Femoral Vein Popliteal Vein Small Saphenous Vein * Proximal Calf Veins (* superficial vessels) Right Leg: Negative for DVT, Color Doppler imaging shows patency of the vessels. Spectral waveforms are within normal limits. Left Leg: Negative for DVT, Color Doppler imaging shows patency of the vessels. Spectral waveforms a re within normal limits. IMPRESSION: No ultrasound evidence for deep venous thrombosis. [facility], , 08/25/2024 9:12 AM
--- NOTE | 2024-08-25 10:07 | P.CRDCN ---
History of Present Illness Consult date: 08/24/24 History of present illness: HISTORY OF PRESENTING ILLNESS: Patient is a 64-year-old male with severe ischemic cardiomyopathy, apical thrombus, severe multivessel coronary artery disease, noncompliance, tobacco and marijuana smoking. In January 2024 patient presented to [facility] with increased shortness of breath diaphoresis nausea for 24 hours. Patient reports that his symptoms somewhat started like a week ago. On admission his EKG showed sinus tachycardia with Q waves in anteroseptal leads along with evolving ST elevation in anteroseptal leads suggestive of late presenting anteroseptal GA. Echocardiogram showed an EF of 25 to 30% with apical hypokinesia with layered apical thrombus. RV dilatation with small pericardial effusion was noticed. He was taken to the [facility] which showed 100% mid LAD thrombotic occlusion with no collaterals, 80% OM1 disease, 80% diffuse distal LCx disease, 40% diffuse RCA disease, 80% proximal superior branch of PDA disease. He was optimized with medical management for congestive heart failure and surgical opinion was obtained. Patient was denied by surgery because of his high surgical risk. He had a staged PCI for attempted LCx intervention however on repeat cath the OM disease appeared to have resolved with only residual 20% disease. Patient was eventually discharged home with continued inflammation therapy for congestive heart failure and CAD management. He followed up with Dr. Mendoza on outpatient basis however he missed his appointments and was not very compliant with his medications. He also did not participate in cardiac rehab. Apparently patient was at [facility] when he had symptoms of substernal chest pressure. He was taken to the emergency department where STEMI was diagnosed and patient was taken to the [facility]. Apparently patient had PCI of his mid LAD by Dr. Kumar. This time presented to the hospital because of increased worsening lower extremity edema. On admission his EKG showed new ST elevations with Q waves in lateral leads V3, V4, V5 which appears to be more pronounced as compared to the older EKG from January. Admission Vitals: 99 over 66 mmHg, heart rate 95 bpm, afebrile Admission Labs: Hb 12.9, BUN 43, creatinine 1.19, ALP 206, AST 112, troponin 0.19, NT-proBNP 14,500 Admission EKG: Sinus tachycardia with Q waves in inferior lead anteroseptal leads and lateral leads, ST elevations in lateral leads V4 V5 Imaging: Chest x-ray shows cardiomegaly with mild pulmonary congestion. Prior cardiac testing: Echo 01/2024 shows an EF of 25 to 30%, apical thrombus, severe pulmonary hypertension RVSP 65 mmHg Cardiac cath 02/18/2024 late presenting STEMI, 100% thrombotic mid LAD stenosis, RAN 0 flow, 80% OM1 thrombotic occlusion, distal LCx diffuse 80% disease. 40% diffuse RCA disease, 80 to 90% proximal superior PDA branch stenosis. Cardiac cath 02/23/2024, repeat heart cath for staged PCI of OM1 after being decline from surgery. Repeat heart cath showed resolution of 80% OM1 disease which was most likely thrombotic with residual 20% disease. Distal LCx appears to have 60% diffuse disease and appeared to be a millimeter vessel. No inter vention was performed. REVIEW OF SYSTEMS: 14 point review of system is negative except what is mentioned above in HPI. PHYSICAL EXAMINATION: Neck: Brisk carotid upstroke, elevated jugular venous distention. Lungs: Clear to auscultation. Heart: Regular rate and rhythm, S1-S2, , no murmur or rub. Abdomen: Soft nontender, positive bowel sounds. Extremities: 3+ swelling with bullae formation Neuro: Alert, oritented, no focal deficits. Detailed neuro exam was not performed. ASSESSMENT: # Late presenting lateral stemi # Multivessel CAD with prior PCI to LCx and RCA # severe ischemic cardiomyopathy # apical anurysm with layered apical thrombus # Acute on chronic HFrEF exacerbation # Noncompliance # Tobacco and marijuana smoking PLAN: Plan for emergent cardiac catheterization Further recommendations to follow Past Medical History Past Medical History: Coronary Artery Disease (CAD), COPD, Hypertension, Myocardial Infarction (GA) Additional Past Medical History / Comment(s): kidney stone History of Any Multi-Drug Resistant Organisms: None Reported Past Surgical History: Heart Catheterization With Stent, Tonsillectomy Past Anesthesia/Blood Transfusion Reactions: No Reported Reaction Date of Last Stent Placement:: 1989 Past Psychological History: No Psychological Hx Reported Smoking Status: Current every day smoker Past Alcohol Use History: None Reported Past Drug Use History: Marijuana - Past Family History Mother Additional Family Medical History / Comment(s): heart issues- from myocardial infarction at 67 years old Father Additional Family Medical History / Comment(s): of pancreatitis-alcoholic Medications and Allergies Home Medications Medication Instructions Recorded Confirmed Type Apixaban [Eliquis] 5 mg PO BID #60 tab 02/24/24 08/24/24 Rx Clopidogrel [Plavix] 75 mg PO DAILY #30 tab 02/24/24 08/24/24 Rx Spironolactone [Aldactone] 25 mg PO DAILY #30 tab 02/24/24 08/24/24 Rx Aspirin 81 mg PO DAILY 08/24/24 08/24/24 History Atorvastatin [Lipitor] 80 mg PO HS 08/24/24 08/24/24 History Bumetanide [Bumex] 1 mg PO BID 08/24/24 08/24/24 History Empagliflozin [Jardiance] 10 mg PO DAILY 08/24/24 08/24/24 History Metoprolol Succinate (ER) [Toprol 25 mg PO BID 08/24/24 08/24/24 History XL] Naproxen Sodium [Aleve] 220 - 440 mg PO BID PRN 08/24/24 08/24/24 History Nitroglycerin Sl Tabs [Nitrostat] 0.4 mg SL Q5M PRN 08/24/24 08/24/24 History Vericiguat [Verquvo] 2.5 mg PO DAILY 90 Days #90 tablet 08/24/24 Rx Allergies Allergy/AdvReac Type Severity Reaction Status Date / Time No Known Allergies Allergy Verified 08/24/24 19:20 Physical Exam Vitals: Vital Signs Temp Pulse Resp BP Pulse Ox 08/24/24 19:39 92 18 113/76 97 08/24/24 19:20 96 16 92/70 98 08/24/24 18:11 97.6 F 95 19 108/74 99 08/24/24 14:24 97.6 F 95 17 96/66 100 Intake and Output 08/24/24 08/24/24 08/24/24 06:59 14:59 22:59 Intake Total 175 Balance 175 Intake: IV 175 Other: Weight 72.575 kg Results 08/25/24 08:02 08/25/24 08:02 Cardiac Enzymes 08/24/24 08/24/24 Range/Units 16:12 16:12 AST 38 (17-59) U/L Troponin I 0.190 H* (0.000-0.034) ng/mL Coagulation 08/24/24 Range/Units 16:12 PT 14.2 H (10.0-12.5) sec APTT 24.4 (22.0-30.0) sec CBC 08/24/24 Range/Units 16:12 WBC 15.2 H (3.8-10.6) k/uL RBC 4.40 (4.30-5.90) m/uL Hgb 12.9 L (13.0-17.5) gm/dL Hct 41.9 (39.0-53.0) % Plt Count 333 (150-450) k/uL Comprehensive Metabolic Panel 08/24/24 Range/Units 16:12 Sodium 130 L (137-145) mmol/L Potassium 3.6 (3.5-5.1) mmol/L Chloride 92 L (98-107) mmol/L Carbon Dioxide 29 (22-30) mmol/L BUN 43 H (9-20) mg/dL Creatinine 1.19 (0.66-1.25) mg/dL Glucose 80 (74-99) mg/dL Calcium 9.3 (8.4-10.2) mg/dL AST 38 (17-59) U/L ALT 112 H (4-49) U/L Alkaline Phosphatase 206 H (38-126) U/L Total Protein 6.5 (6.3-8.2) g/dL Albumin 3.6 (3.5-5.0) g/dL Current Medications Generic Name Dose Route Start Last Admin Trade Name Freq PRN Reason Stop Dose Admin Apixaban 5 mg 08/25/24 09:00 Apixaban 5 Mg Tab PO BID [facility] Protocol Aspirin 81 mg 08/25/24 09:00 Aspirin 81 Mg PO DAILY [facility] Atorvastatin Calcium 40 mg 08/25/24 21:00 Atorvastatin 40 Mg Tab PO HS [facility] Clopidogrel Bisulfate 75 mg 08/24/24 21:30 Clopidogrel 75 Mg Tab PO DAILY [facility] Dapagliflozin 10 mg 08/25/24 09:00 Dapagliflozin Propanediol 10 Mg Tablet PO DAILY [facility] Ezetimibe 10 mg 08/24/24 21:30 Ezetimibe 10 Mg Tab PO DAILY [facility] Furosemide 40 mg 08/25/24 06:00 Furosemide 10 Mg/Ml 4 Ml Vial IV Q12H [facility] Hydromorphone HCl 0.5 mg 08/24/24 19:19 Hydromorphone 0.5 Mg/0.5 Ml Syringe IVP Q3HR PRN Moderate Pain (Scale 4 to 6) Sodium Chloride 1,000 mls @ 75 mls/hr 08/24/24 21:30 Saline 0.9% IV 08/25/24 03:29 .[id number] [facility] Metoprolol Succinate 50 mg 08/24/24 21:30 Metoprolol Succinate (Er) 50 Mg Tab.Er.24h PO DAILY [facility] Miscellaneous Information 1 each 08/24/24 21:16 Rx Info: Iv Contrast Was Given 1 Each Misc MISCELLANE 08/26/24 21:16 DAILY PRN Per Protocol Morphine Sulfate 4 mg 08/24/24 19:19 Morphine Sulfate 4 Mg/Ml Syringe IV Q4HR PRN Severe Pain (Scale 7 to 10) Naloxone HCl 0.2 mg 08/24/24 19:19 Naloxone 0.4 Mg/Ml 1 Ml Vial IV Q2M PRN Opioid Reversal Ondansetron HCl 4 mg 08/24/24 19:19 Ondansetron 4 Mg/2 Ml Vial IVP Q8HR PRN Nausea And Vomiting Sacubitril/Valsartan 1 each 08/24/24 21:30 Sacubitril/Valsartan 24 Mg-26 Mg Tablet PO BID [facility] Intake and Output 08/24/24 08/24/24 08/24/24 06:59 14:59 22:59 Intake Total 175 Balance 175 Intake: IV 175 Other: Weight 72.575 kg Patient Weight 08/25/24 06:59 Weight 72.575 kg 08/24/24 16:12 08/24/24 16:12
--- NOTE | 2024-08-25 10:24 | CA ---
Transthoracic Echo Report Name: Sylvester Keen Age: 64 Gender: M : 1960 Exam Date: 08/25/2024 08:05 Exam Location: [facility] Ht (in): 67 Wt (lb): 160 Ordering Physician: Avinash Mendoza MD ([id number]) Attending/Referring Phys: Health Care Marketing Manager Alise Smith RDCS Procedure CPT: Indications: stemi Cardiac Hx: Technical Quality: Good Contrast 1: Definity Total Dose (mL): 3 Contrast 2: Total Dose (mL): MEASUREMENTS (Male / Female) Normal Values 2D ECHO LV Diastolic Diameter PLAX 5.7 cm 4.2 - 5.9 / 3.9 - 5.3 cm LV Systolic Diameter PLAX 5.5 cm IVS Diastolic Thickness 1.1 cm 0.6 - 1.0 / 0.6 - 0.9 cm LVPW Diastolic Thickness 1.0 cm 0.6 - 1.0 / 0.6 - 0.9 cm LV Relative Wall Thickness 0.4 LVOT Diameter 2.3 cm LV Diastolic Volume MOD BP 301.2 cm??? 67 - 155 / 56 - 104 cm??? LV Systolic Volume MOD BP 240.6 cm??? 22 - 58 / 19 - 49 cm??? LV Ejection Fraction MOD BP 20.1 % >= 55 % LV Cardiac Index MOD BP 2865.1 cm???/min???m??? LV Diastolic Volume MOD 4C 265.6 cm??? LV Systolic Volume MOD 4C 232.0 cm??? LV Ejection Fraction MOD 4C 12.7 % LV Cardiac Index MOD 4C 1591.6 cm???/min???m??? LV Diastolic Length 4C 9.9 cm LV Systolic Length 4C 9.9 cm LV Diastolic Volume MOD 2C 322.9 cm??? LV Systolic Volume MOD 2C 243.8 cm??? LV Ejection Fraction MOD 2C 24.5 % LV Cardiac Index MOD 2C 3736.3 cm???/min???m??? LV Diastolic Length 2C 10.5 cm LV Systolic Length 2C 9.6 cm LA Volume 115.6 cm??? 18 - 58 / 22 - 52 cm??? LA Volume Index 62.1 cm???/m??? 16 - 28 cm???/m??? DOPPLER AV Peak Velocity 92.0 cm/s AV Peak Gradient 3.4 mmHg AV Mean Velocity 68.0 cm/s AV Mean Gradient 2.0 mmHg AV Velocity Time Integral 14.8 cm LVOT Peak Velocity 59.2 cm/s LVOT Peak Gradient 1.4 mmHg LVOT Velocity Time Integral 8.6 cm LVOT Stroke Volume 37.1 cm??? LVOT Stroke Volume Index 20.2 ml/m??? LVOT Cardiac Index 1751.8 cm???/min???m??? AV Area Cont Eq vti 2.5 cm??? AV Area Cont Eq pk 2.8 cm??? TR Peak Velocity 280.0 cm/s TR Peak Gradient 31.4 mmHg Right Atrial Pressure 20.0 mmHg Pulmonary Artery Systolic Pressu 51.4 mmHg Right Ventricular Systolic Press 51.4 mmHg PV Peak Velocity 54.3 cm/s PV Peak Gradient 1.2 mmHg FINDINGS Left Ventricle Left ventricular ejection fraction is estimated at 10-15 %. Mildly increased septal wall thickness. Severely increased left ventricular diastolic volume. Severely increased left ventricular systolic volume. Severely decreased left ventricular ejection fraction. Large left ventricular apical thrombus. Spontaneous contrast seen in the left ventricle. Right Ventricle Right ventricular dilatation. Severely reduced right ventricular global systolic function. Moderate to severe pulmonary hypertension. Right Atrium Moderate right atrial dilatation. Left Atrium Severely increased left atrial volume. Moderately increased left atrial area. Mitral Valve Mitral valve thickened. No evidence for mitral valve prolapse. No mitral stenosis. Mild mitral regurgitation. Aortic Valve Trileaflet aortic valve. No aortic stenosis. Trace to mild aortic regurgitation. Tricuspid Valve Structurally normal tricuspid valve. No tricuspid stenosis. Moderate tricuspid regurgitation. Pulmonic Valve Structurally normal pulmonic valve. No pulmonic stenosis. [id number] pulmonic regurgitation. Pericardium No pericardial effusion. Aorta Normal size aortic root and proximal ascending aorta. CONCLUSIONS Severe LV systolic dysfunction with an ejection fraction of 10 to 15% Moderate to severe pulmonary hypertension Moderate tricuspid regurgitation Moderate mitral regurgitation Severe RV systolic dysfunction with biatrial enlargement Apical thrombus noted Previewed by: Dr. Latrell Viveros MD (Electronically Signed) Final Date: 25 August 2024 10:23
[2024-08-25 10:56] LABS: T4, Free (Free Thyroxine) 1.43 ng/dL (0.78-2.19)
[2024-08-25] MEDS: POTASSIUM CHLORIDE ER 20 MEQ TAB.ER PO STA (11:28)
[2024-08-25 14:50] LABS: Chol/HDL Ratio 3.32 Ratio; LDL Cholesterol,Calculated 63.2 mg/dL (0.0-131.0); VLDL Calculation 12.32 mg/dL (5.00-40.00)
--- NOTE | 2024-08-25 15:31 | P.CON ---
Consult Note - . Consult date: 08/25/24 Assessment/Plan:: Wound care consultation: Reason for consultation: Bilateral foot ulcers History of chief complaint: This gentleman was admitted for heart cath. Findings and general medical issues are well outlined in cardiology history and physical and notes. The patient seems to be somewhat noncompliant and was admitted with significant bilateral lower extremity swelling. He had developed a superficial blisters on both feet. There has been some diminution of the swelling since his admission. On examination the patient has multiple superficial blisters various locations on the dorsum of both feet and on the toes. Several are still blistered and several have burst. The remaining ulceration is fairly superficial. Impression: Superficial ulcerations both feet secondary to swelling and blistering Recommendation: The main portion of the treatment at this time is leg elevation to decrease swelling. I would cover any open wounds with honey gel and wrap with gauze. This can be discontinued as soon as the wounds epithelialize. Plea se contact us if any further recommendations are required. Prognosis in regards to the wounds is pretty dependent on patient's compliance with leg elevation.
--- NOTE | 2024-08-25 17:09 | P.HPIM ---
History of Present Illness H&P Date: 08/24/24 Chief Complaint: Swelling both lower extremities 64-year-old male with history of CHF, renal disease, CAD with stents, COPD, hypertension, DM presenting to the ER for chief complaint of bilateral lower extremity edema x 1 week. Reports there is fluid draining from bilateral legs and feet and he has left foot blisters and bilateral ulcerations on the dorsal feet. Also reports discoloration of the toes for approximately 1 week. Denies chest pain or shortness of breath. He states he believes this is from an allergic reaction to Aleve as he took 4 Aleve's for pain 3 days ago. He takes Eliquis and Plavix. He takes Bumex for edema. In ED his EKG showed new ST elevations with Q waves in lateral leads V3, V4, V5 which appears to be more pronounced as compared to the older EKG from January. -Patient was evaluated by cardiology and is being taken to [facility] for late presenting lateral STEMI Admission Labs: Hb 12.9, BUN 43, creatinine 1.19, ALP 206, AST 112, troponin 0.19, NT-proBNP 14,500 Review of Systems REVIEW OF SYSTEMS: CONSTITUTIONAL: No fever, no malaise, no fatigue. HEENT: No recent visual problems or hearing problems. Denied any sore throat. CARDIOVASCULAR: No chest pain, orthopnea, PND, no palpitations, no syncope. PULMONARY: No shortness of breath, no cough, no hemoptysis. GASTROINTESTINAL: No diarrhea, no nausea, no vomiting, no abdominal pain. NEUROLOGICAL: No headaches, no weakness, no numbness. HEMATOLOGICAL: Denies any bleeding or petechiae. GENITOURINARY: Denies any burning micturition, frequency, or urgency. MUSCULOSKELETAL/RHEUMATOLOGICAL: Denies any joint pain, swelling, or any muscle pain. ENDOCRINE: Denies any polyuria or polydipsia. The rest of the 14-point review of systems is negative. Past Medical History Past Medical History: Coronary Artery Disease (CAD), COPD, Hypertension, Myocardial Infarction ([place]) Additional Past Medical History / Comment(s): kidney stone History of Any Multi-Drug Resistant Organisms: None Reported Past Surgical History: Heart Catheterization With Stent, Tonsillectomy Past Anesthesia/Blood Transfusion Reactions: No Reported Reaction Date of Last Stent Placement:: 1989 Past Psychological History: No Psychological Hx Reported Smoking Status: Current every day smoker Past Alcohol Use History: None Reported Past Drug Use History: Marijuana - Past Family History Mother Additional Family Medical History / Comment(s): heart issues- from myocardial infarction at 67 years old Father Additional Family Medical History / Comment(s): of pancreatitis-alcoholic Medications and Allergies Home Medications Medication Instructions Recorded Confirmed Type Apixaban [Eliquis] 5 mg PO BID #60 tab 02/24/24 08/24/24 Rx Clopidogrel [Plavix] 75 mg PO DAILY #30 tab 02/24/24 08/24/24 Rx Spironolactone [Aldactone] 25 mg PO DAILY #30 tab 02/24/24 08/24/24 Rx Aspirin 81 mg PO DAILY 08/24/24 08/24/24 History Atorvastatin [Lipitor] 80 mg PO HS 08/24/24 08/24/24 History Bumetanide [Bumex] 1 mg PO BID 08/24/24 08/24/24 History Empagliflozin [Jardiance] 10 mg PO DAILY 08/24/24 08/24/24 History Metoprolol Succinate (ER) [Toprol 25 mg PO BID 08/24/24 08/24/24 History XL] Naproxen Sodium [Aleve] 220 - 440 mg PO BID PRN 08/24/24 08/24/24 History Nitroglycerin Sl Tabs [Nitrostat] 0.4 mg SL Q5M PRN 08/24/24 08/24/24 History Vericiguat [Verquvo] 2.5 mg PO DAILY 90 Days #90 tablet 08/24/24 Rx Allergies Allergy/AdvReac Type Severity Reaction Status Date / Time No Known Allergies Allergy Verified 08/24/24 19:20 Physical Exam Vitals: Vital Signs Temp Pulse Resp BP Pulse Ox 08/24/24 19:39 92 18 113/76 97 08/24/24 19:20 96 16 92/70 98 08/24/24 18:11 97.6 F 95 19 108/74 99 08/24/24 14:24 97.6 F 95 17 96/66 100 Intake and Output 08/24/24 08/24/24 08/24/24 06:59 14:59 22:59 Intake Total 175 Balance 175 Intake: IV 175 Other: Weight 72.575 kg General appearance: alert, in no apparent distress Head exam: Present: atraumatic, normocephalic, normal inspection Eye exam: Present: normal appearance, PERRL, EOMI. Absent: scleral icterus, conjunctival injection, periorbital swelling Respiratory exam: Present: normal lung sounds bilaterally. Absent: respiratory distress, wheezes, rales, rhonchi, stridor Cardiovascular Exam: Present: regular rate, normal rhythm, normal heart sounds. Absent: systolic murmur, diastolic murmur, rubs, gallop, clicks GI/Abdominal exam: Present: soft, normal bowel sounds. Absent: distended, tenderness, guarding, rebound, rigid Extremities exam: Present: full ROM, normal capillary refill. Absent: normal inspection (3+ pitting edema bilaterally. There is a grade 1 ulceration present on dorsal aspect of left foot and fluid-filled bullae on the lateral aspect of dorsal left foot. Diffuse pale becerra coloring to all lower extremity digits bilateral), tenderness, pedal edema, joint swelling, calf tenderness Neurological exam: Present: alert, oriented X3 Psychiatric exam: Present: normal affect, normal mood Skin exam: Present: warm, dry, intact, normal color. Absent: rash Results CBC & Chem 7: 08/25/24 08:02 08/25/24 08:02 Labs: Abnormal Lab Results - Last 24 Hours (Table) 08/24/24 08/24/24 08/24/24 Range/Units 16:12 16:12 16:12 WBC 15.2 H (3.8-10.6) k/uL Hgb 12.9 L (13.0-17.5) gm/dL MCHC 30.8 L (31.0-37.0) g/dL RDW 17.8 H (11.5-15.5) % Neutrophils # 13.6 H (1.3-7.7) k/uL Lymphocytes # 0.6 L (1.0-4.8) k/uL PT 14.2 H (10.0-12.5) sec INR 1.3 H (<1.2) Sodium 130 L (137-145) mmol/L Chloride 92 L (98-107) mmol/L BUN 43 H (9-20) mg/dL Total Bilirubin 2.2 H (0.2-1.3) mg/dL ALT 112 H (4-49) U/L Alkaline Phosphatase 206 H (38-126) U/L Troponin I (0.000-0.034) ng/mL Urine Protein (Negative) Urine Blood (Negative) Ur Leukocyte Esterase (Negative) Urine RBC (0-5) /hpf Urine WBC (0-5) /hpf Urine WBC Clumps (None) /hpf Urine Bacteria (None) /hpf Urine Mucus (None) /hpf 08/24/24 08/24/24 Range/Units 16:12 16:12 WBC (3.8-10.6) k/uL Hgb (13.0-17.5) gm/dL MCHC (31.0-37.0) g/dL RDW (11.5-15.5) % Neutrophils # (1.3-7.7) k/uL Lymphocytes # (1.0-4.8) k/uL PT (10.0-12.5) sec INR (<1.2) Sodium (137-145) mmol/L Chloride (98-107) mmol/L BUN (9-20) mg/dL Total Bilirubin (0.2-1.3) mg/dL ALT (4-49) U/L Alkaline Phosphatase (38-126) U/L Troponin I 0.190 H* (0.000-0.034) ng/mL Urine Protein 1+ H (Negative) Urine Blood Large H (Negative) Ur Leukocyte Esterase Large H (Negative) Urine RBC 86 H (0-5) /hpf Urine WBC >182 H (0-5) /hpf Urine WBC Clumps Few H (None) /hpf Urine Bacteria Occasional H (None) /hpf Urine Mucus Rare H (None) /hpf Assessment and Plan Assessment: 1. Late presenting lateral STEMI -Patient has history of multivessel CAD with prior PCI to LCx and RCA -Patient is evaluated by cardiology and is being taken for emergent cardiac catheterization 2. Severe ischemic cardiomyopathy; 3. Acute on chronic HFrEF exacerbation -Bumex 1 mg twice daily; remains on Aldactone 25 mg daily -Monitor strict MAY's, daily weights, low-salt and fluid restricted diet -2D echo is ordered and pending 4. Hypertension; metoprolol 25 mg twice daily 5. Hyperlipidemia; Lipitor 80 mg nightly 6. Left ventriculogram; patient has history of layered apical thrombus treated with Eliquis 5 mg twice daily DVT prophylaxis; SCD/Eliquis CODE STATUS; full code
--- NOTE | 2024-08-25 17:10 | P.PN ---
Subjective Progress Note Date: 08/25/24 64-year-old male with history of CHF, renal disease, CAD with stents, COPD, hypertension, DM presenting to the ER for chief complaint of bilateral lower extremity edema x 1 week. Reports there is fluid draining from bilateral legs and feet and he has left foot blisters and bilateral ulcerations on the dorsal feet. Also reports discoloration of the toes for approximately 1 week. Denies chest pain or shortness of breath. He states he believes this is from an allergic reaction to Aleve as he took 4 Aleve's for pain 3 days ago. He takes Eliquis and Plavix. He takes Bumex for edema. In ED his EKG showed new ST elevations with Q waves in lateral leads V3, V4, V5 which appears to be more pronounced as compared to the older EKG from January. -Patient was evaluated by cardiology and is being taken to [facility] for late presenting lateral STEMI Admission Labs: Hb 12.9, BUN 43, creatinine 1.19, ALP 206, AST 112, troponin 0.19, NT-proBNP 14,500 -- Status post cardiac catheterization 08/24/2024 100% occluded mid LCx, jailed behind the LCx stent, likely the culprit 100% distal LAD occlusion, unchanged from 01/2024 60 to 70% mid LAD eccentric stenosis, unchanged from 01/2024 Patent stents in LCx and RCA 80% proximal inferior PLB, unchanged from 01/2024 Objective - Vital Signs Vital signs: Vital Signs Temp 97.7 F 08/24/24 21:27 Pulse 89 08/25/24 08:00 Resp 17 08/25/24 08:00 BP 113/69 08/25/24 08:00 Pulse Ox 99 08/25/24 08:00 FiO2 Intake & Output 08/24/24 08/25/24 08/25/24 18:59 06:59 18:59 Intake Total 175 118 Output Total 850 Balance -675 118 Weight 72.575 kg 69.5 kg Intake: IV 175 Oral 118 Output: Urine 850 Other: Voiding Method Urinal Urinal - Exam General appearance: alert, in no apparent distress Head exam: Present: atraumatic, normocephalic, normal inspection Eye exam: Present: normal appearance, PERRL, EOMI. Absent: scleral icterus, conjunctival injection, periorbital swelling Respiratory exam: Present: normal lung sounds bilaterally. Absent: respiratory distress, wheezes, rales, rhonchi, stridor Cardiovascular Exam: Present: regular rate, normal rhythm, normal heart sounds. Absent: systolic murmur, diastolic murmur, rubs, gallop, clicks GI/Abdominal exam: Present: soft, normal bowel sounds. Absent: distended, tenderness, guarding, rebound, rigid Extremities exam: Present: full ROM, normal capillary refill. Absent: normal inspection (3+ pitting edema bilaterally. There is a grade 1 ulceration present on dorsal aspect of left foot and fluid-filled bullae on the lateral aspect of dorsal left foot. Diffuse pale becerra coloring to all lower extremity digits bilateral), tenderness, pedal edema, joint swelling, calf tenderness Neurological exam: Present: alert, oriented X3 Psychiatric exam: Present: normal affect, normal mood Skin exam: Present: warm, dry, intact, normal color. Absent: rash - Labs CBC & Chem 7: 08/25/24 08:02 08/25/24 08:02 Labs: Abnormal Lab Results - Last 24 Hours (Table) 08/24/24 08/24/24 08/24/24 Range/Units 16:12 16:12 16:12 WBC 15.2 H (3.8-10.6) k/uL Hgb 12.9 L (13.0-17.5) gm/dL MCHC 30.8 L (31.0-37.0) g/dL RDW 17.8 H (11.5-15.5) % Neutrophils # 13.6 H (1.3-7.7) k/uL Lymphocytes # 0.6 L (1.0-4.8) k/uL PT 14.2 H (10.0-12.5) sec INR 1.3 H (<1.2) Sodium 130 L (137-145) mmol/L Potassium (3.5-5.1) mmol/L Chloride 92 L (98-107) mmol/L Carbon Dioxide (22-30) mmol/L BUN 43 H (9-20) mg/dL Glucose (74-99) mg/dL Total Bilirubin 2.2 H (0.2-1.3) mg/dL ALT 112 H (4-49) U/L Alkaline Phosphatase 206 H (38-126) U/L Troponin I (0.000-0.034) ng/mL Total Protein (6.3-8.2) g/dL Albumin (3.5-5.0) g/dL TSH (0.465-4.680) mIU/L Urine Protein (Negative) Urine Blood (Negative) Ur Leukocyte Esterase (Negative) Urine RBC (0-5) /hpf Urine WBC (0-5) /hpf Urine WBC Clumps (None) /hpf Urine Bacteria (None) /hpf Urine Mucus (None) /hpf 08/24/24 08/24/24 08/25/24 Range/Units 16:12 16:12 08:02 WBC (3.8-10.6) k/uL Hgb (13.0-17.5) gm/dL MCHC (31.0-37.0) g/dL RDW (11.5-15.5) % Neutrophils # (1.3-7.7) k/uL Lymphocytes # (1.0-4.8) k/uL PT (10.0-12.5) sec INR (<1.2) Sodium 135 L (137-145) mmol/L Potassium 3.4 L (3.5-5.1) mmol/L Chloride 94 L (98-107) mmol/L Carbon Dioxide 35 H (22-30) mmol/L BUN 39 H (9-20) mg/dL Glucose 135 H (74-99) mg/dL Total Bilirubin 2.1 H (0.2-1.3) mg/dL ALT 104 H (4-49) U/L Alkaline Phosphatase 144 H (38-126) U/L Troponin I 0.190 H* (0.000-0.034) ng/mL Total Protein 6.1 L (6.3-8.2) g/dL Albumin 3.3 L (3.5-5.0) g/dL TSH 4.800 H (0.465-4.680) mIU/L Urine Protein 1+ H (Negative) Urine Blood Large H (Negative) Ur Leukocyte Esterase Large H (Negative) Urine RBC 86 H (0-5) /hpf Urine WBC >182 H (0-5) /hpf Urine WBC Clumps Few H (None) /hpf Urine Bacteria Occasional H (None) /hpf Urine Mucus Rare H (None) /hpf 08/25/24 Range/Units 08:02 WBC 12.5 H (3.8-10.6) k/uL Hgb 12.9 L (13.0-17.5) gm/dL MCHC 30.9 L (31.0-37.0) g/dL RDW 17.8 H (11.5-15.5) % Neutrophils # 11.2 H (1.3-7.7) k/uL Lymphocytes # 0.5 L (1.0-4.8) k/uL PT (10.0-12.5) sec INR (<1.2) Sodium (137-145) mmol/L Potassium (3.5-5.1) mmol/L Chloride (98-107) mmol/L Carbon Dioxide (22-30) mmol/L BUN (9-20) mg/dL Glucose (74-99) mg/dL Total Bilirubin (0.2-1.3) mg/dL ALT (4-49) U/L Alkaline Phosphatase (38-126) U/L Troponin I (0.000-0.034) ng/mL Total Protein (6.3-8.2) g/dL Albumin (3.5-5.0) g/dL TSH (0.465-4.680) mIU/L Urine Protein (Negative) Urine Blood (Negative) Ur Leukocyte Esterase (Negative) Urine RBC (0-5) /hpf Urine WBC (0-5) /hpf Urine WBC Clumps (None) /hpf Urine Bacteria (None) /hpf Urine Mucus (None) /hpf Assessment and Plan Assessment: 1. Late presenting lateral STEMI -Patient has history of multivessel CAD with prior PCI to LCx and RCA -Patient is evaluated by cardiology and is being taken for emergent cardiac catheterization 2. Severe ischemic cardiomyopathy; 3. Acute on chronic HFrEF exacerbation -Bumex 1 mg twice daily; remains on Aldactone 25 mg daily -Monitor strict MAY's, daily weights, low-salt and fluid restricted diet -2D echo is ordered and pending 4. Hypertension; metoprolol 25 mg twice daily 5. Hyperlipidemia; Lipitor 80 mg nightly 6. Left ventriculogram; patient has history of layered apical thrombus treated with Eliquis 5 mg twice daily DVT prophylaxis; SCD/Eliquis CODE STATUS; full code
[2024-08-25] MEDS: ATORVASTATIN 40 MG TAB PO SCH (22:35)
[2024-08-25] MEDS: MORPHINE SULFATE 4 MG/ML SYRINGE IV PRN (23:26)
--- NOTE | 2024-08-26 07:44 | P.PN ---
Subjective Progress Note Date: 08/26/24 The patient is a 62-year-old gentleman with a past medical history significant for CAD with known occluded distal LAD and stenting of the LCx and at least mild to moderate residual coronary artery disease as well as severe cardiomyopathy as well as history of LV thrombus and multiple comorbid conditions who was admitted to the hospital with heart failure with the echo showed severe cardiomyopathy with EF around 15%. August 18 12/31/2024 The patient was seen and evaluated this morning with he is feeling better but he continues to have shortness of breath and severe bilateral lower extremities edema. The echo showed an EF around 15 to 20%. No symptoms of chest pain or chest discomfort. He is on maximized medical treatment for cardiomyopathy including SGLT2 inhibitors as well as ARNI. He is slightly tachycardic on examination. The physical examination is remarkable for regular rhythm with a systolic murmur and clear breathing sounds bilaterally and severe bilateral lower extremities pitting edema noted Assessment CAD as described above Severe cardiomyopathy LV thrombus Valvular heart disease Multiple comorbid conditions Plan Continue current medical regimen Increase the dose of beta-ruslan Continue IV diuretics Continue monitoring the kidney function and electrolytes Follow-up with the patient Objective - Vital Signs Vital signs: Vital Signs Temp 98.3 F 08/26/24 04:00 Pulse 91 08/26/24 04:00 Resp 16 08/26/24 04:00 BP 94/66 08/26/24 04:00 Pulse Ox 98 08/26/24 04:00 FiO2 Intake & Output 08/25/24 08/26/24 08/26/24 18:59 06:59 18:59 Intake Total 476 30 Output Total 600 Balance -124 30 Weight 67.1 kg Intake: IV 30 Invasive Line 2 30 Oral 476 Output: Urine 600 Other: Voiding Method Urinal Urinal # Voids 1 # Bowel Movements 1 - Labs CBC & Chem 7: 08/25/24 08:02 08/25/24 08:02 Labs: Abnormal Lab Results - Last 24 Hours (Table) 08/25/24 08/25/24 Range/Units 08:02 08:02 WBC 12.5 H (3.8-10.6) k/uL Hgb 12.9 L (13.0-17.5) gm/dL MCHC 30.9 L (31.0-37.0) g/dL RDW 17.8 H (11.5-15.5) % Neutrophils # 11.2 H (1.3-7.7) k/uL Lymphocytes # 0.5 L (1.0-4.8) k/uL Sodium 135 L (137-145) mmol/L Potassium 3.4 L (3.5-5.1) mmol/L Chloride 94 L (98-107) mmol/L Carbon Dioxide 35 H (22-30) mmol/L BUN 39 H (9-20) mg/dL Glucose 135 H (74-99) mg/dL Total Bilirubin 2.1 H (0.2-1.3) mg/dL ALT 104 H (4-49) U/L Alkaline Phosphatase 144 H (38-126) U/L Total Protein 6.1 L (6.3-8.2) g/dL Albumin 3.3 L (3.5-5.0) g/dL HDL Cholesterol 32.50 L (40.00-60.00) mg/dL TSH 4.800 H (0.465-4.680) mIU/L
[2024-08-26 08:02] LABS: Anisocytosis Slight; Basophils % (A) 0 %; Eosinophils # (A) 0.2 k/uL (0-0.7); Eosinophils % (A) 2 %; HCT 40.3 % (39.0-53.0); HGB 12.4 gm/dL (13.0-17.5); Hypochromasia Marked; Lymphocytes # (A) 0.9 k/uL (1.0-4.8); Lymphocytes % (A) 8 %; MCH 29.4 pg (25.0-35.0); MCHC 30.9 g/dL (31.0-37.0); MCV 95.3 fL (80.0-100.0); Mean Platelet Volume 7.4; Monocytes # (A) 0.7 k/uL (0-1.0); Monocytes % (A) 6 %; Neutrophils # (A) 9.9 k/uL (1.3-7.7); Neutrophils % (A) 83 %; Platelet Count 319 k/uL (150-450); Poikilocytosis Slight; RBC 4.22 m/uL (4.30-5.90); RDW 17.7 % (11.5-15.5); WBC 11.9 k/uL (3.8-10.6)
[2024-08-26 08:24] LABS: African American GFR (CKD) >90 (>60 ml/min/1.73 sqM); Anion Gap 7 mmol/L; Blood Urea Nitrogen 36 mg/dL (9-20); Calcium 8.8 mg/dL (8.4-10.2); Carbon Dioxide 31 mmol/L (22-30); Chloride 97 mmol/L (98-107); Glucose 98 mg/dL (74-99); Non-African American GFR(CKD) 84 (>60 ml/min/1.73 sqM); Potassium 3.8 mmol/L (3.5-5.1); Sodium 135 mmol/L (137-145)
[2024-08-26] MEDS: METOPROLOL SUCCINATE (ER) 25 MG TAB.ER.24H PO SCH (08:28)
[2024-08-26] MEDS: ATORVASTATIN 80 MG TAB PO SCH (21:10)
[2024-08-26] MEDS: NICOTINE 14MG/24HR PATCH TRANSDERM SCH (23:31)
--- NOTE | 2024-08-27 06:45 | P.PN ---
Subjective Progress Note Date: 08/27/24 The patient is a 62-year-old gentleman with a past medical history significant for CAD with known occluded distal LAD and stenting of the LCx and at least mild to moderate residual coronary artery disease as well as severe cardiomyopathy as well as history of LV thrombus and multiple comorbid conditions who was admitted to the hospital with heart failure with the echo showed severe cardiomyopathy with EF around 15%. August 18 12/31/2024 The patient was seen and evaluated this morning with he is feeling better but he continues to have shortness of breath and severe bilateral lower extremities edema. The echo showed an EF around 15 to 20%. No symptoms of chest pain or chest discomfort. He is on maximized medical treatment for cardiomyopathy including SGLT2 inhibitors as well as ARNI. He is slightly tachycardic on examination. The physical examination is remarkable for regular rhythm with a systolic murmur and clear breathing sounds bilaterally and severe bilateral lower extremities pitting edema noted August 27, 2024 The patient was seen and evaluated this morning. Overall he is feeling better. The shortness of breath is better. He still have severe bilateral lower extremities pitting edema. He has been diuresing well on the current dose of Lasix. The physical examination is remarkable for regular rhythm with diminished breathing sounds bilaterally and severe bilateral lower extremities edema. His heart rate has been better after we increase the dose of beta- ruslan yesterday. Assessment CAD as described above Severe cardiomyopathy LV thrombus Valvular heart disease Multiple comorbid conditions Plan Continue current medical regimen Continue IV diuretics Continue monitoring the kidney function and electrolytes Follow-up with the patient Objective - Vital Signs Vital signs: Vital Signs Temp 98.2 F 08/27/24 04:00 Pulse 80 08/27/24 04:00 Resp 17 08/27/24 04:00 BP 91/62 08/27/24 04:00 Pulse Ox 100 08/27/24 04:00 FiO2 Intake & Output 08/26/24 08/26/24 08/27/24 06:59 18:59 06:59 Intake Total 30 720 30 Balance 30 720 30 Weight 67.1 kg Intake: IV 30 30 Invasive Line 2 30 Invasive Line 3 30 Oral 720 Other: Voiding Method Urinal Urinal Urinal # Voids 1 # Bowel Movements 1 - Labs CBC & Chem 7: 08/26/24 07:29 08/26/24 07:29 Labs: Abnormal Lab Results - Last 24 Hours (Table) 08/26/24 08/26/24 Range/Units 07:29 07:29 WBC 11.9 H (3.8-10.6) k/uL RBC 4.22 L (4.30-5.90) m/uL Hgb 12.4 L (13.0-17.5) gm/dL MCHC 30.9 L (31.0-37.0) g/dL RDW 17.7 H (11.5-15.5) % Neutrophils # 9.9 H (1.3-7.7) k/uL Lymphocytes # 0.9 L (1.0-4.8) k/uL Sodium 135 L (137-145) mmol/L Chloride 97 L (98-107) mmol/L Carbon Dioxide 31 H (22-30) mmol/L BUN 36 H (9-20) mg/dL
[2024-08-27 09:04] LABS: Anisocytosis Slight; Basophils % (A) 0 %; Eosinophils # (A) 0.3 k/uL (0-0.7); Eosinophils % (A) 3 %; HCT 36.3 % (39.0-53.0); HGB 11.2 gm/dL (13.0-17.5); Hypochromasia Marked; Lymphocytes # (A) 0.9 k/uL (1.0-4.8); Lymphocytes % (A) 9 %; MCH 29.5 pg (25.0-35.0); MCHC 30.8 g/dL (31.0-37.0); MCV 95.8 fL (80.0-100.0); Macrocytosis Slight; Mean Platelet Volume 7.4; Monocytes # (A) 0.6 k/uL (0-1.0); Monocytes % (A) 6 %; Neutrophils % (A) 81 %; Platelet Count 268 k/uL (150-450); RBC 3.79 m/uL (4.30-5.90); RDW 17.8 % (11.5-15.5)
[2024-08-27 09:20] LABS: African American GFR (CKD) 90 (>60 ml/min/1.73 sqM); Anion Gap 5 mmol/L; Blood Urea Nitrogen 36 mg/dL (9-20); Calcium 8.3 mg/dL (8.4-10.2); Carbon Dioxide 34 mmol/L (22-30); Chloride 95 mmol/L (98-107); Glucose 148 mg/dL (74-99); Non-African American GFR(CKD) 78 (>60 ml/min/1.73 sqM); Potassium 3.2 mmol/L (3.5-5.1); Sodium 134 mmol/L (137-145)
[2024-08-27] MEDS: POTASSIUM CHLORIDE ER 20 MEQ TAB.ER PO STA (09:53)
[2024-08-27 10:11] VITALS: TEMP 97.9
[2024-08-27 12:00] VITALS: BP 96/64; PULSE 86; RESP 16
--- NOTE | 2024-08-27 16:52 | P.PN ---
Subjective Progress Note Date: 08/26/24 64-year-old male with history of CHF, renal disease, CAD with stents, COPD, hypertension, DM presenting to the ER for chief complaint of bilateral lower extremity edema x 1 week. Reports there is fluid draining from bilateral legs and feet and he has left foot blisters and bilateral ulcerations on the dorsal feet. Also reports discoloration of the toes for approximately 1 week. Denies chest pain or shortness of breath. He states he believes this is from an allergic reaction to Aleve as he took 4 Aleve's for pain 3 days ago. He takes Eliquis and Plavix. He takes Bumex for edema. In ED his EKG showed new ST elevations with Q waves in lateral leads V3, V4, V5 which appears to be more pronounced as compared to the older EKG from January. -Patient was evaluated by cardiology and is being taken to [facility] for late presenting lateral STEMI Admission Labs: Hb 12.9, BUN 43, creatinine 1.19, ALP 206, AST 112, troponin 0.19, NT-proBNP 14,500 -- Status post cardiac catheterization 08/24/2024 100% occluded mid LCx, jailed behind the LCx stent, likely the culprit 100% distal LAD occlusion, unchanged from 01/2024 60 to 70% mid LAD eccentric stenosis, unchanged from 01/2024 Patent stents in LCx and RCA 80% proximal inferior PLB, unchanged from 01/202408/26/2024 Patient is seen and evaluated resting in bed; no complaint of chest pain; does get short of breath with activity Vital signs are reviewed and stable with temperature of 98.3, pulse 91, respirations 16 blood pressure is somewhat soft at 94/66 with O2 saturation at 98% Patient had echocardiogram completed which revealed an EF of 15 to 20%; cardiology on board and recommending to increase dose of beta-blockers; continue with IV diuretic -Plan to continue to monitor patient closely and adjust therapy Objective - Vital Signs Vital signs: Vital Signs Temp 97.7 F 08/26/24 07:50 Pulse 81 08/26/24 09:56 Resp 18 08/26/24 09:56 BP 91/53 08/26/24 07:50 Pulse Ox 100 08/26/24 07:50 FiO2 Intake & Output 08/25/24 08/26/24 08/26/24 18:59 06:59 18:59 Intake Total 476 30 480 Output Total 600 Balance -124 30 480 Weight 67.1 kg Intake: IV 30 Invasive Line 2 30 Oral 476 480 Output: Urine 600 Other: Voiding Method Urinal Urinal Urinal # Voids 1 # Bowel Movements 1 - Exam General appearance: alert, in no apparent distress Head exam: Present: atraumatic, normocephalic, normal inspection Eye exam: Present: normal appearance, PERRL, EOMI. Absent: scleral icterus, conjunctival injection, periorbital swelling Respiratory exam: Present: normal lung sounds bilaterally. Absent: respiratory distress, wheezes, rales, rhonchi, stridor Cardiovascular Exam: Present: regular rate, normal rhythm, normal heart sounds. Absent: systolic murmur, diastolic murmur, rubs, gallop, clicks GI/Abdominal exam: Present: soft, normal bowel sounds. Absent: distended, tenderness, guarding, rebound, rigid Extremities exam: Present: full ROM, normal capillary refill. Absent: normal inspection (3+ pitting edema bilaterally. There is a grade 1 ulceration present on dorsal aspect of left foot and fluid-filled bullae on the lateral aspect of dorsal left foot. Diffuse pale becerra coloring to all lower extremity digits sabine ateral), tenderness, pedal edema, joint swelling, calf tenderness Neurological exam: Present: alert, oriented X3 Psychiatric exam: Present: normal affect, normal mood Skin exam: Present: warm, dry, intact, normal color. Absent: rash - Labs CBC & Chem 7: 08/27/24 08:26 08/27/24 08:26 Labs: Abnormal Lab Results - Last 24 Hours (Table) 08/25/24 08/26/24 08/26/24 Range/Units 08:02 07:29 07:29 WBC 11.9 H (3.8-10.6) k/uL RBC 4.22 L (4.30-5.90) m/uL Hgb 12.4 L (13.0-17.5) gm/dL MCHC 30.9 L (31.0-37.0) g/dL RDW 17.7 H (11.5-15.5) % Neutrophils # 9.9 H (1.3-7.7) k/uL Lymphocytes # 0.9 L (1.0-4.8) k/uL Sodium 135 L (137-145) mmol/L Chloride 97 L (98-107) mmol/L Carbon Dioxide 31 H (22-30) mmol/L BUN 36 H (9-20) mg/dL HDL Cholesterol 32.50 L (40.00-60.00) mg/dL Assessment and Plan Assessment: 1. Late presenting lateral STEMI -Patient has history of multivessel CAD with prior PCI to LCx and RCA -Patient is evaluated by cardiology and is being taken for emergent cardiac catheterization 2. Severe ischemic cardiomyopathy; 3. Acute on chronic HFrEF exacerbation -Bumex 1 mg twice daily; remains on Aldactone 25 mg daily -Monitor strict MAY's, daily weights, low-salt and fluid restricted diet -2D echo is ordered and pending 4. Hypertension; metoprolol 25 mg twice daily 5. Hyperlipidemia; Lipitor 80 mg nightly 6. Left ventriculogram; patient has history of layered apical thrombus treated with Eliquis 5 mg twice daily DVT prophylaxis; SCD/Eliquis CODE STATUS; full code
--- NOTE | 2024-08-27 16:54 | P.PN ---
Subjective Progress Note Date: 08/27/24 64-year-old male with history of CHF, renal disease, CAD with stents, COPD, hypertension, DM presenting to the ER for chief complaint of bilateral lower extremity edema x 1 week. Reports there is fluid draining from bilateral legs and feet and he has left foot blisters and bilateral ulcerations on the dorsal feet. Also reports discoloration of the toes for approximately 1 week. Denies chest pain or shortness of breath. He states he believes this is from an allergic reaction to Aleve as he took 4 Aleve's for pain 3 days ago. He takes Eliquis and Plavix. He takes Bumex for edema. In ED his EKG showed new ST elevations with Q waves in lateral leads V3, V4, V5 which appears to be more pronounced as compared to the older EKG from January. -Patient was evaluated by cardiology and is being taken to [facility] for late presenting lateral STEMI Admission Labs: Hb 12.9, BUN 43, creatinine 1.19, ALP 206, AST 112, troponin 0.19, NT-proBNP 14,500 -- Status post cardiac catheterization 08/24/2024 100% occluded mid LCx, jailed behind the LCx stent, likely the culprit 100% distal LAD occlusion, unchanged from 01/2024 60 to 70% mid LAD eccentric stenosis, unchanged from 01/2024 Patent stents in LCx and RCA 80% proximal inferior PLB, unchanged from 01/202408/26/2024 Patient is seen and evaluated resting in bed; no complaint of chest pain; does get short of breath with activity Vital signs are reviewed and stable with temperature of 98.3, pulse 91, respirations 16 blood pressure is somewhat soft at 94/66 with O2 saturation at 98% Patient had echocardiogram completed which revealed an EF of 15 to 20%; cardiology on board and recommending to increase dose of beta-blockers; continue with IV diuretic -Plan to continue to monitor patient closely and adjust therapy 08/27/2024 Patient is seen ambulating hallway; reports some improvement in shortness of breath; continues to have swelling both lower extremities Vital signs are reviewed temperature 98.2, pulse 80, respirations 17 and blood pressure of 91/62 -Cardiology on board and recommending to continue with IV Lasix as prescribed; continue to monitor renal function electrolytes closely -Patient has severe ischemic cardiomyopathy with EF of 15 to 20% -Patient to discharge home once cleared by cardiology Objective - Vital Signs Vital signs: Vital Signs Temp 97.9 F 08/27/24 08:00 Pulse 91 08/27/24 08:00 Resp 18 08/27/24 08:00 BP 96/54 08/27/24 08:00 Pulse Ox 95 08/27/24 08:00 FiO2 Intake & Output 08/26/24 08/27/24 08/27/24 18:59 06:59 18:59 Intake Total 720 30 130 Balance 720 30 130 Intake: IV 30 10 Invasive Line 3 30 10 Oral 720 120 Other: Voiding Method Urinal Urinal Urinal # Voids 0 # Bowel Movements 0 - Exam General appearance: alert, in no apparent distress Head exam: Present: atraumatic, normocephalic, normal inspection Eye exam: Present: normal appearance, PERRL, EOMI. Absent: scleral icterus, conjunctival injection, periorbital swelling Respiratory exam: Present: normal lung sounds bilaterally. Absent: respiratory distress, wheezes, rales, rhonchi, stridor Cardiovascular Exam: Present: regular rate, normal rhythm, normal heart sounds. Absent: systolic murmur, diastolic murmur, rubs, gallop, clicks GI/Abdominal exam: Present: soft, normal bowel sounds. Absent: distended, tenderness, guarding, rebound, rigid Extremities exam: Present: full ROM, normal capillary refill. Absent: normal inspection (3+ pitting edema bilaterally. There is a grade 1 ulceration present on dorsal aspect of left foot and fluid-filled bullae on the lateral aspect of dorsal left foot. Diffuse pale becerra coloring to all lower extremity digits bilateral), tenderness, pedal edema, joint swelling, calf tenderness Neurological exam: Present: alert, oriented X3 Psychiatric exam: Present: normal affect, normal mood Skin exam: Present: warm, dry, intact, normal color. Absent: rash - Labs CBC & Chem 7: 08/27/24 08:26 08/27/24 08:26 Labs: Abnormal Lab Results - Last 24 Hours (Table) 08/27/24 08/27/24 Range/Units 08:26 08:26 RBC 3.79 L (4.30-5.90) m/uL Hgb 11.2 L (13.0-17.5) gm/dL Hct 36.3 L (39.0-53.0) % MCHC 30.8 L (31.0-37.0) g/dL RDW 17.8 H (11.5-15.5) % Neutrophils # 8.0 H (1.3-7.7) k/uL Lymphocytes # 0.9 L (1.0-4.8) k/uL Sodium 134 L (137-145) mmol/L Potassium 3.2 L (3.5-5.1) mmol/L Chloride 95 L (98-107) mmol/L Carbon Dioxide 34 H (22-30) mmol/L BUN 36 H (9-20) mg/dL Glucose 148 H (74-99) mg/dL Calcium 8.3 L (8.4-10.2) mg/dL Assessment and Plan Assessment: 1. Late presenting lateral STEMI -Patient has history of multivessel CAD with prior PCI to LCx and RCA -Patient is evaluated by cardiology and is being taken for emergent cardiac catheterization 2. Severe ischemic cardiomyopathy; 3. Acute on chronic HFrEF exacerbation -Bumex 1 mg twice daily; remains on Aldactone 25 mg daily -Monitor strict MAY's, daily weights, low-salt and fluid restricted diet -2D echo is ordered and pending 4. Hypertension; metoprolol 25 mg twice daily 5. Hyperlipidemia; Lipitor 80 mg nightly 6. Left ventriculogram; patient has history of layered apical thrombus treated with Eliquis 5 mg twice daily DVT prophylaxis; SCD/Eliquis CODE STATUS; full code
== END 2024-08-27 14:48 | disposition left against medical advice (07) | DRG 280 ==
LOC: EC 14:16 → 2SICU 19:38 → 3SCARD 20:37
PROVIDERS: ADMIT Hospitalist; ATTEND Hospitalist
PROC: B2151ZZ Fluoroscopy of Left Heart using Low Osmolar Contrast (ICD-10-PCS; 2024-08-24)
PROC: B2111ZZ Fluoroscopy of Multiple Coronary Arteries using Low Osmolar Contrast (ICD-10-PCS; 2024-08-24)
PROC: 4A023N7 Measurement of Cardiac Sampling and Pressure, Left Heart, Percutaneous Approach (ICD-10-PCS; principal; 2024-08-24 19:37)
DX: I11.0 Hypertensive heart disease with heart failure (principal); I50.23 Acute on chronic systolic (congestive) heart failure; I21.29 ST elevation (STEMI) myocardial infarction involving other sites; I51.3 Intracardiac thrombosis, not elsewhere classified; I27.20 Pulmonary hypertension, unspecified; L97.519 Non-pressure chronic ulcer of other part of right foot with unspecified severity; L97.529 Non-pressure chronic ulcer of other part of left foot with unspecified severity; M79.89 Other specified soft tissue disorders; F17.200 Nicotine dependence, unspecified, uncomplicated; I25.10 Atherosclerotic heart disease of native coronary artery without angina pectoris; I25.5 Ischemic cardiomyopathy; R00.0 Tachycardia, unspecified; E78.5 Hyperlipidemia, unspecified; I25.2 Old myocardial infarction; S90.821A Blister (nonthermal), right foot, initial encounter; S90.822A Blister (nonthermal), left foot, initial encounter; Z79.82 Long term (current) use of aspirin; Z79.899 Other long term (current) drug therapy; Z79.84 Long term (current) use of oral hypoglycemic drugs; Z91.199 Patient's noncompliance with other medical treatment and regimen due to unspecified reason; Z79.01 Long term (current) use of anticoagulants; Z79.02 Long term (current) use of antithrombotics/antiplatelets; Z87.442 Personal history of urinary calculi; Z95.5 Presence of coronary angioplasty implant and graft
CPT/HCPCS: 36415; 71046; 80048; 80053; 80061; 81001; 83036; 83605; 83735; 83880; 84439; 84443; 84484; 85025; 85610; 85730; 93005; 93306; 93458; 93970; 96365; 96375; 99291

== ENCOUNTER 2024-09-07 13:56 | Observation (INO) | payer OTHER ==
--- NOTE | 2024-09-07 15:09 | ED ---
Lower Extremity Injury HPI - General Chief Complaint: Extremity Injury, Lower Stated Complaint: R ankle injury Time Seen by Provider: 09/07/24 15:05 Source: patient, RN notes reviewed Mode of arrival: wheelchair Limitations: no limitations - History of Present Illness Initial Comments: 64-year-old male presenting to the ER for blisters on feet for 1 week. Patient reports over the past week he has began to notice blisters popping open on bilateral feet. He is able to ambulate without difficulties. Denies chest pain or shortness of breath. He was recently admitted to the ER last month for an NSTEMI where he underwent wound care evaluation for similar blisters and was recommended to elevate feet and wrap with gauze. Patient appears to be nonco mpliant and confused about his condition as he states he has never had these blisters before. - Related Data Home Medications Medication Instructions Recorded Confirmed Aspirin 81 mg PO DAILY 08/24/24 08/24/24 Atorvastatin [Lipitor] 80 mg PO HS 08/24/24 08/24/24 Bumetanide [Bumex] 1 mg PO BID 08/24/24 08/24/24 Empagliflozin [Jardiance] 10 mg PO DAILY 08/24/24 08/24/24 Metoprolol Succinate (ER) [Toprol 25 mg PO BID 08/24/24 08/24/24 XL] Naproxen Sodium [Aleve] 220 - 440 mg PO BID PRN 08/24/24 08/24/24 Nitroglycerin Sl Tabs [Nitrostat] 0.4 mg SL Q5M PRN 08/24/24 08/24/24 Previous Rx's Medication Instructions Recorded Apixaban [Eliquis] 5 mg PO BID #60 tab 02/24/24 Clopidogrel [Plavix] 75 mg PO DAILY #30 tab 02/24/24 Spironolactone [Aldactone] 25 mg PO DAILY #30 tab 02/24/24 Vericiguat [Verquvo] 2.5 mg PO DAILY 90 Days #90 tablet 08/24/24 Allergies Allergy/AdvReac Type Severity Reaction Status Date / Time No Known Allergies Allergy Verified 09/07/24 14:32 Review of Systems ROS Statement: Those systems with pertinent positive or pertinent negative responses have been documented in the HPI. ROS Other: All systems not noted in ROS Statement are negative. Past Medical History Past Medical History: Coronary Artery Disease (CAD), COPD, Hypertension, Myocardial Infarction (MS) Additional Past Medical History / Comment(s): kidney stone Last Myocardial Infarction Date:: 08/24/24 History of Any Multi-Drug Resistant Organisms: None Reported Past Surgical History: Heart Catheterization With Stent, Tonsillectomy Past Anesthesia/Blood Transfusion Reactions: No Reported Reaction Date of Last Stent Placement:: 1989 Past Psychological History: No Psychological Hx Reported Smoking Status: Current every day smoker Past Alcohol Use History: None Reported Past Drug Use History: Marijuana - Past Family History Mother Additional Family Medical History / Comment(s): heart issues- from myocardial infarction at 67 years old Father Additional Family Medical History / Comment(s): of pancreatitis-alcoholic General Exam Limitations: no limitations General appearance: alert, in no apparent distress Head exam: Present: atraumatic, normocephalic, normal inspection Eye exam: Present: normal appearance, PERRL, EOMI. Absent: scleral icterus, conjunctival injection, periorbital swelling ENT exam: Present: normal exam, mucous membranes moist Respiratory exam: Present: normal lung sounds bilaterally. Absent: respiratory distress, wheezes, rales, rhonchi, stridor Cardiovascular Exam: Present: regular rate, normal rhythm, normal heart sounds. Absent: systolic murmur, diastolic murmur, rubs, gallop, clicks Extremities exam: Present: full ROM, normal capillary refill. Absent: normal inspection (There are bilateral multiple superficial blisters on both feet in various locations on dorsum of both feet and toes. There is an ulceration present on ventral aspect of foot fairly superficial.), tenderness, pedal edema, joint swelling, calf tenderness Neurological exam: Present: alert, oriented X3 Psychiatric exam: Present: normal affect, normal mood Skin exam: Present: warm, dry, intact, normal color. Absent: rash Course Vital Signs 09/07/24 09/07/24 09/07/24 14:30 17:05 18:00 Temperature 97.5 F L 98.4 F 98.1 F Pulse Rate 104 H 98 94 Respiratory 18 20 20 Rate Blood Pressure 103/69 99/65 101/69 O2 Sat by Pulse 99 99 99 Oximetry Medical Decision Making - Medical Decision Making Was pt. sent in by a medical professional or institution (, PA, SCRAP CUTTER, urgent care, hospital, or residential...) When possible be specific @ -No Did you speak to anyone other than the patient for history (EMS, parent, family, police, friend...)? What history was obtained from this source @ -No Did you review nursing and triage notes (agree or disagree)? Why? @ -I reviewed and agree with nursing and triage notes Were old charts reviewed (outside hosp., previous admission, EMS record, old EKG, old radiological studies, urgent care reports/EKG's, residential records)? Report findings @ -Reviewed previous admission charts including ultrasound of bilateral lower extremities which were negative for DVTs bilaterally. I also reviewed wound care consult on 326 were the recommendation at that time was to decrease swelling by elevating legs and wrap wounds with gauze Differential Diagnosis (chest pain, altered mental status, abdominal pain women, abdominal pain men, vaginal bleeding, weakness, fever, dyspnea, syncope, headache, dizziness, GI bleed, back pain, seizure, CVA, palpatations, mental hea lth, musculoskeletal)? @ -Differential Musculoskeletal Muscular strain, contusion, ligament sprain, fracture, arthritis, septic arthritis, bursitis, cellulitis, muscle spasm, nerve compression, DVT, arterial occlusion, herpes zoster, electrolyte abnormality, tumor.... This is not meant to be in all inclusive list EKG interpreted by me (3pts min.). @ -As above X-rays interpreted by me (1pt min.). @ -Chest x-ray reveals continued CHF exacerbation CT interpreted by me (1pt min.). @ -None done U/S interpreted by me (1pt. min.). @ -None done What testing was considered but not performed or refused? (CT, X-rays, U/S, labs)? Why? @ -None What meds were considered but not given or refused? Why? @ -None Did you discuss the management of the patient with other professionals (professionals i.e. , PA, SCRAP CUTTER, lab, RT, psych nurse, psychiatric social worker, contracts law professor, teacher, protection officer, case management manager)? Give summary @ -I spoke with Carri from [facility] who accepts admission for acute CHF exacerbation Was smoking cessation discussed for >3mins.? @ -No Was critical care preformed (if so, how long)? @ -No Were there social determinants of health that impacted care today? How? (Homelessness, low income, unemployed, alcoholism, drug addiction, transportation, low edu. Level, literacy, decrease access to med. care, skilled nursing, rehab)? @ -No Was there de-escalation of care discussed even if they declined (Discuss DNR or withdrawal of care, Hospice)? DNR status @ -No What co-morbidities impacted this encounter? (DM, HTN, Smoking, COPD, CAD, Cancer, CVA, ARF, Chemo, Hep., AIDS, mental health diagnosis, sleep apnea, morbid obesity)? @ -CHF, DM Was patient admitted / discharged? Hospital course, mention meds given and route, prescriptions, significant lab abnormalities, going to OR and other pertinent info. @ -admitted. 64-year-old male presenting for bilateral blisters on feet x 1 week. Denies chest pain or shortness of breath. Patient was recently admitted to the hospital for an NSTEMI when he underwent wound care consultation on August 24 for bilateral feet blisters where the recommendation was to elevate feet to decrease swelling and wrapped wounds with gauze. Patient is afebrile, tachycardic at 104 bpm. Lab work remarkable for elevated BNP at 21,100, troponin 0.075 however is trending down from previous NSTEMI with cardiac cath. CRP 15, white blood cell count 10. EKG reveals normal sinus rhythm with widened QRS complexes similar compared to previous EKG. Chest x-ray reveals continued CHF exacerbation. I spoke with Carri from [facility] who accepts admission for acute CHF exacerbation with consultation to cardiology and wound care. Patient will be given 1 dose of Unasyn and Lasix. Case was discussed with my ED attending Dr. Coello. Undiagnosed new problem with uncertain prognosis? @ -No Drug Therapy requiring intensive monitoring for toxicity (Heparin, Nitro, Insulin, Cardizem)? @ -No Were any procedures done? @ -No Diagnosis/symptom? @ -Acute CHF exacerbation Acute, or Chronic, or Acute on Chronic? @ -Acute on chronic Uncomplicated (without systemic symptoms) or Complicated (systemic symptoms)? @ -Complicated Side effects of treatment? @ -No Exacerbation, Progression, or Severe Exacerbation? @ -No Poses a threat to life or bodily function? How? (Chest pain, USA, MS, pneumonia, PE, COPD, DKA, ARF, appy, cholecystitis, CVA, Diverticulitis, Homicidal, Suicidal, threat to staff... and all critical care pts) @ -Yes - Lab Data Result diagrams: 09/07/24 16:01 09/07/24 16:01 Lab Results 09/07/24 09/07/24 09/07/24 Range/Units 16:01 16:01 16:01 WBC 10.09 H (4.50-10.00) 10*3/uL RBC 3.65 L (4.40-5.60) 10*6/uL Hgb 10.9 L (13.0-17.0) g/dL Hct 33.2 L (39.6-50.0) % MCV 91.0 (80.0-97.0) fL MCH 29.9 (27.0-32.0) pg MCHC 32.8 (32.0-37.0) g/dL Plt Count 322 (140-440) 10*3/uL MPV 9.5 (9.5-12.2) fL Immature Gran % (Auto) 1.5 % Neutrophils % 85.0 % Lymphocytes % 4.2 % Monocytes % 6.1 % Eosinophils % 2.7 % Basophils % 0.5 % Immature Gran # 0.15 H (0.00-0.04) 10*3/uL Neutrophils # 8.58 H (1.80-7.70) 10*3/uL Lymphocytes # 0.42 L (0.90-5.00) 10*3/uL Monocytes # 0.62 (0.20-1.00) 10*3/uL Eosinophils # 0.27 (0.04-0.35) 10*3/uL Basophils # 0.05 (0.00-0.10) 10*3/uL Sodium 133 L (137-145) mmol/L Potassium 3.8 (3.5-5.1) mmol/L Chloride 100 (98-107) mmol/L Carbon Dioxide 23 (22-30) mmol/L Anion Gap 10 mmol/L BUN 36 H (9-20) mg/dL Creatinine 0.87 (0.66-1.25) mg/dL Est GFR (CKD-EPI)AfAm >90 (>60 ml/min/1.73 sqM) Est GFR (CKD-EPI)NonAf >90 (>60 ml/min/1.73 sqM) Glucose 87 (74-99) mg/dL Plasma Lactic Acid Lauro 1.3 (0.7-2.0) mmol/L Calcium 9.1 (8.4-10.2) mg/dL Total Bilirubin 1.8 H (0.2-1.3) mg/dL AST 51 (17-59) U/L ALT 58 H (4-49) U/L Alkaline Phosphatase 169 H (38-126) U/L Troponin I (0.000-0.034) ng/mL C-Reactive Protein 15.0 H (<1.0) mg/dL NT-Pro-B Natriuret Pep 44669 pg/mL Total Protein 6.0 L (6.3-8.2) g/dL Albumin 3.0 L (3.5-5.0) g/dL 09/07/24 Range/Units 16:01 WBC (4.50-10.00) 10*3/uL RBC (4.40-5.60) 10*6/uL Hgb (13.0-17.0) g/dL Hct (39.6-50.0) % MCV (80.0-97.0) fL MCH (27.0-32.0) pg MCHC (32.0-37.0) g/dL Plt Count (140-440) 10*3/uL MPV (9.5-12.2) fL Immature Gran % (Auto) % Neutrophils % % Lymphocytes % % Monocytes % % Eosinophils % % Basophils % % Immature Gran # (0.00-0.04) 10*3/uL Neutrophils # (1.80-7.70) 10*3/uL Lymphocytes # (0.90-5.00) 10*3/uL Monocytes # (0.20-1.00) 10*3/uL Eosinophils # (0.04-0.35) 10*3/uL Basophils # (0.00-0.10) 10*3/uL Sodium (137-145) mmol/L Potassium (3.5-5.1) mmol/L Chloride (98-107) mmol/L Carbon Dioxide (22-30) mmol/L Anion Gap mmol/L BUN (9-20) mg/dL Creatinine (0.66-1.25) mg/dL Est GFR (CKD-EPI)AfAm (>60 ml/min/1.73 sqM) Est GFR (CKD-EPI)NonAf (>60 ml/min/1.73 sqM) Glucose (74-99) mg/dL Plasma Lactic Acid Lauro (0.7-2.0) mmol/L Calcium (8.4-10.2) mg/dL Total Bilirubin (0.2-1.3) mg/dL AST (17-59) U/L ALT (4-49) U/L Alkaline Phosphatase (38-126) U/L Troponin I 0.075 H* (0.000-0.034) ng/mL C-Reactive Protein (<1.0) mg/dL NT-Pro-B Natriuret Pep pg/mL Total Protein (6.3-8.2) g/dL Albumin (3.5-5.0) g/dL - EKG Data -: EKG Interpreted by Co EKG Comments: EKG reveals sinus rhythm with widened QRS complexes similar to previous. Ventricular rate 92 bpm, parable of 214, QRS duration 128, QT/QTc 363/413 Disposition Clinical Impression: Acute exacerbation of CHF (congestive heart failure) Disposition: ADMITTED IP TO THIS HOSP Referrals: None,Stated [Primary Care Provider] - 1-2 days Time of Disposition: 18:24
--- NOTE | 2024-09-07 15:52 | XR ---
EXAMINATION TYPE: XR chest 2V DATE OF EXAM: 09/07/2024 CLINICAL INDICATION: Male, 64 years old with history of b/l LE edema, TECHNIQUE: Frontal and lateral views of the chest are obtained. COMPARISON: Chest x-ray August 24, 2024 FINDINGS: There is no suspicious focal air space opacity, pleural effusion, or pneumothorax seen. Pe rsistent cardiomegaly with central vascular congestion. The osseous structures are intact. IMPRESSION: Findings suggest continued CHF exacerbation. Correlate clinically. [facility], , 09/07/2024 3:50 PM
[2024-09-07 16:08] LABS: Basophils # (A) 0.05 10*3/uL (0.00-0.10); Basophils % (A) 0.5 %; Eosinophils # (A) 0.27 10*3/uL (0.04-0.35); Eosinophils % (A) 2.7 %; HCT 33.2 % (39.6-50.0); HGB 10.9 g/dL (13.0-17.0); Lymphocytes # (A) 0.42 10*3/uL (0.90-5.00); Lymphocytes % (A) 4.2 %; MCH 29.9 pg (27.0-32.0); MCHC 32.8 g/dL (32.0-37.0); Mean Platelet Volume 9.5 fL (9.5-12.2); Monocytes # (A) 0.62 10*3/uL (0.20-1.00); Monocytes % (A) 6.1 %; Neutrophils # (A) 8.58 10*3/uL (1.80-7.70); Platelet Count 322 10*3/uL (140-440); RBC 3.65 10*6/uL (4.40-5.60); RDW 19.8 % (11.5-14.5); WBC 10.09 10*3/uL (4.50-10.00)
[2024-09-07 16:37] LABS: ALT 58 U/L (4-49); AST 51 U/L (17-59); African American GFR (CKD) >90 (>60 ml/min/1.73 sqM); Alkaline Phosphatase 169 U/L (38-126); Anion Gap 10 mmol/L; Blood Urea Nitrogen 36 mg/dL (9-20); Calcium 9.1 mg/dL (8.4-10.2); Carbon Dioxide 23 mmol/L (22-30); Chloride 100 mmol/L (98-107); Glucose 87 mg/dL (74-99); Non-African American GFR(CKD) >90 (>60 ml/min/1.73 sqM); Potassium 3.8 mmol/L (3.5-5.1); Sodium 133 mmol/L (137-145); Total Bilirubin 1.8 mg/dL (0.2-1.3)
[2024-09-07 16:43] LABS: NT-Pro-B-Type Natriuretic Pept 21100 pg/mL
[2024-09-07] MEDS: ACETAMINOPHEN TAB 325 MG TAB PO STA (17:44)
[2024-09-07] MEDS ORDERED: HYDROcodone/APAP 5-325MG 1 EACH TAB PO PRN (18:13)
[2024-09-07] MEDS ORDERED: ACETAMINOPHEN TAB 325 MG TAB PO PRN (18:13)
[2024-09-07] MEDS ORDERED: ONDANSETRON 4 MG/2 ML VIAL IVP PRN (18:13)
[2024-09-07] MEDS ORDERED: NALOXONE 0.4 MG/ML 1 ML VIAL IV PRN (18:13)
[2024-09-07] MEDS: FUROSEMIDE 10 MG/ML 4 ML VIAL IV STA (18:22)
[2024-09-07] MEDS: MORPHINE SULFATE 4 MG/ML SYRINGE IV PRN (18:24)
[2024-09-07] MEDS: AMPICILLIN-SULBACTAM 3 GM in SODIUM CHLORIDE 0.9% 100 ML IVPB STA (18:26)
[2024-09-07 20:40] VITALS: RESP 18
[2024-09-07] MEDS: NICOTINE 14MG/24HR PATCH TRANSDERM SCH (20:42)
[2024-09-07 23:01] VITALS: BP 128/80; TEMP 98.2
[2024-09-08] MEDS: APIXABAN 5 MG TAB PO SCH (00:49)
[2024-09-08] MEDS: ATORVASTATIN 80 MG TAB PO SCH (00:50)
[2024-09-08] MEDS: METOPROLOL SUCCINATE (ER) 25 MG TAB.ER.24H PO SCH (00:50)
[2024-09-08 04:02] VITALS: PULSE 110
--- NOTE | 2024-09-22 09:55 | P.HPIM ---
History of Present Illness Please consider this note as combined H&P and discharge summary Please note patient was not discharged but left AMA before we have a chance to see the patient and evaluate him. It looks like the patient was admitted for blisters in his feet. But within a few hours he decided to leave AMA. Please refer to nurse note for more details Past Medical History Past Medical History: Atrial Fibrillation, Coronary Artery Disease (CAD), Heart Failure, COPD, Hypertension, Myocardial Infarction (AL) Additional Past Medical History / Comment(s): kidney stone Last Myocardial Infarction Date:: 08/24/24 History of Any Multi-Drug Resistant Organisms: None Reported Past Surgical History: Heart Catheterization With Stent, Tonsillectomy Past Anesthesia/Blood Transfusion Reactions: No Reported Reaction Date of Last Stent Placement:: 2024 Past Psychological History: No Psychological Hx Reported Smoking Status: Current every day smoker Past Alcohol Use History: None Reported Additional Past Alcohol Use History / Comment(s): Patient reports smoking 1/2 pack/day. Past Drug Use History: Marijuana - Past Family History Mother Additional Family Medical History / Comment(s): heart issues- from myocardial infarction at 67 years old Father Additional Family Medical History / Comment(s): of pancreatitis-alcoholic Medications and Allergies Home Medications Medication Instructions Recorded Confirmed Type Apixaban [Eliquis] 5 mg PO BID #60 tab 02/24/24 09/07/24 Rx Clopidogrel [Plavix] 75 mg PO DAILY #30 tab 02/24/24 09/07/24 Rx Spironolactone [Aldactone] 25 mg PO DAILY #30 tab 02/24/24 09/07/24 Rx Aspirin 81 mg PO DAILY 08/24/24 09/07/24 History Atorvastatin [Lipitor] 80 mg PO HS 08/24/24 09/07/24 History Bumetanide [Bumex] 1 mg PO BID 08/24/24 09/07/24 History Empagliflozin [Jardiance] 10 mg PO DAILY 08/24/24 09/07/24 History Metoprolol Succinate (ER) [Toprol 25 mg PO BID 08/24/24 09/07/24 History XL] Naproxen Sodium [Aleve] 220 - 440 mg PO BID PRN 08/24/24 09/07/24 History Nitroglycerin Sl Tabs [Nitrostat] 0.4 mg SL Q5M PRN 08/24/24 09/07/24 History Allergies Allergy/AdvReac Type Severity Reaction Status Date / Time No Known Allergies Allergy Verified 09/07/24 14:32 Results CBC & Chem 7: 09/07/24 16:01 09/07/24 16:01 Thrombosis Risk Factor Assmnt - Choose All That Apply Each Factor Represents 1 point: Abnormal pulmonary function (COPD), Obesity (BMI >25) Each Risk Factor Represents 2 Points: Age 61-74 years Thrombosis Risk Factor Assessment Total Risk Factor Score: 4 Thrombosis Risk Factor Assessment Level: Moderate Risk
== END 2024-09-08 03:54 | disposition left against medical advice (07) ==
LOC: EC 13:56 → 6NMEDSUR 17:50
PROVIDERS: ADMIT Internal Medicine; ATTEND Internal Medicine
DX: I11.0 Hypertensive heart disease with heart failure (principal); I50.9 Heart failure, unspecified; I21.4 Non-ST elevation (NSTEMI) myocardial infarction; J44.9 Chronic obstructive pulmonary disease, unspecified; L97.509 Non-pressure chronic ulcer of other part of unspecified foot with unspecified severity; S90.821A Blister (nonthermal), right foot, initial encounter; S90.822A Blister (nonthermal), left foot, initial encounter; F17.210 Nicotine dependence, cigarettes, uncomplicated; R41.0 Disorientation, unspecified; Z79.82 Long term (current) use of aspirin; Z79.84 Long term (current) use of oral hypoglycemic drugs; Z79.01 Long term (current) use of anticoagulants; Z79.02 Long term (current) use of antithrombotics/antiplatelets; Z79.899 Other long term (current) drug therapy; Z91.199 Patient's noncompliance with other medical treatment and regimen due to unspecified reason; Z53.29 Procedure and treatment not carried out because of patient's decision for other reasons
CPT/HCPCS: 96365; 96375; 99285; 36415; 93005; 83880; 80053; 85652; 83605; 84484; 85025; 86140; 84145; 71046; G0378 ×2; S4990; J2270; J1940; J0295